=== PATIENT | female | born 1965 | race American Indian/Alaskan Native ===

== ENCOUNTER 2016-12-25 04:58 | Emergency (ER) | payer SELFPAY ==
[2016-12-25] MEDS ORDERED: TYLENOL ONE (05:35)
[2016-12-25] MEDS ORDERED: TYLENOL PO ONE (05:43)
[2016-12-25 06:18] LABS: Basophils % (Auto) 0.7 % (0.0-1.8); Eosinophils % (Auto) 1.7 % (0.0-4.3); Hematocrit 40.3 % (30.3-42.9); Hemoglobin 13.3 gm/dl (10.1-14.3); Mean Corpuscular HGB Conc 33 % (30-34); Mean Corpuscular Hemoglobin 31 pg (28-32); Mean Corpuscular Volume 93 fl (79-97); Platelet Count 301 K/mm3 (140-440); Red Blood Count 4.33 M/mm3 (3.65-5.03); Red Cell Distribution Width 13.2 % (13.2-15.2); White Blood Count 7.6 K/mm3 (4.5-11.0)
[2016-12-25 06:35] LABS: Anion Gap 22 mmol/L; BUN/Creatinine Ratio 16.25; Blood Urea Nitrogen 13 mg/dL (7-17); Calcium 9.4 mg/dL (8.4-10.2); Carbon Dioxide 26 mmol/L (22-30); Chloride 96.7 mmol/L (98-107); Glucose 327 mg/dL (65-100); Potassium 4.2 mmol/L (3.6-5.0); Sodium 140 mmol/L (137-145)
--- NOTE | 2016-12-25 06:54 | Emergency Department Report ---
ED ENT HPI - General Chief complaint: Sore Throat Stated complaint: SORE THROAT/EARACHE/COUGH Time Seen by Provider: 12/25/16 06:53 Source: patient Mode of arrival: Ambulatory Limitations: No Limitations - History of Present Illness Initial comments: Patient here today complaining of sore throat fever and cough for the past 2-3 days. Eyes any shortness of breath, neck pain, photophobia, nausea vomiting. Patient states she's also been out of her prescription medicines for the past 2 weeks. Metformin is the one medication that she has not taken for 2 weeks. Patient denies polyuria polydipsia or blurred vision. She states she has an appointment with her new doctor next week just need some refills on her Norvasc metformin and gabapentin in the meantime. -: Gradual Location: throat Severity scale (0 -10): 4 Quality: burning Worsens with: swallowing Associated Symptoms: fever, cough, pain with swallowing, sore throat - Related Data Previous Rx's Medication Instructions Recorded Last Taken Type Aspirin [Aspirin BABY CHEW TAB] 81 mg PO QDAY #30 tab.chew 03/19/15 Unknown Rx Pantoprazole [Protonix TAB] 40 mg PO QDAY #30 tablet 03/19/15 Unknown Rx amLODIPine [Norvasc] 10 mg PO DAILY #30 tab 03/19/15 Unknown Rx Gabapentin [Neurontin] 300 mg PO BID #60 capsule 05/08/15 Unknown Rx metFORMIN [Glucophage] 500 mg PO BID #60 tablet 05/08/15 Unknown Rx Gabapentin [Gralise] 300 mg PO TID #20 tab.er.24h 12/25/16 Unknown Rx amLODIPine [Norvasc] 5 mg PO DAILY #15 tab 12/25/16 Unknown Rx metFORMIN [Glucophage] 500 mg PO BID #30 tablet 12/25/16 Unknown Rx Allergies Allergy/AdvReac Type Severity Reaction Status Date / Time codeine Allergy Itching Verified 02/05/16 09:46 ED Dental HPI - General Chief complaint: Sore Throat Stated complaint: SORE THROAT/EARACHE/COUGH Time Seen by Provider: 12/25/16 06:53 Source: patient Mode of arrival: Ambulatory Limitations: No Limitations - History of Present Illness MD complaint: sore throat, difficulty swallowing -: Gradual, days(s) Severity: mild Quality: burning Worsens with: swallowing - Related Data Previous Rx's Medication Instructions Recorded Last Taken Type Aspirin [Aspirin BABY CHEW TAB] 81 mg PO QDAY #30 tab.chew 03/19/15 Unknown Rx Pantoprazole [Protonix TAB] 40 mg PO QDAY #30 tablet 03/19/15 Unknown Rx amLODIPine [Norvasc] 10 mg PO DAILY #30 tab 03/19/15 Unknown Rx Gabapentin [Neurontin] 300 mg PO BID #60 capsule 05/08/15 Unknown Rx metFORMIN [Glucophage] 500 mg PO BID #60 tablet 05/08/15 Unknown Rx Gabapentin [Gralise] 300 mg PO TID #20 tab.er.24h 12/25/16 Unknown Rx amLODIPine [Norvasc] 5 mg PO DAILY #15 tab 12/25/16 Unknown Rx metFORMIN [Glucophage] 500 mg PO BID #30 tablet 12/25/16 Unknown Rx Allergies Allergy/AdvReac Type Severity Reaction Status Date / Time codeine Allergy Itching Verified 02/05/16 09:46 ED Review of Systems ROS: Stated complaint: SORE THROAT/EARACHE/COUGH Other details as noted in HPI Constitutional: denies: chills, fever Eyes: denies: eye pain, eye discharge, vision change ENT: throat pain. denies: ear pain Respiratory: cough. denies: shortness of breath, SOB with exertion, SOB at rest , stridor, wheezing Cardiovascular: denies: chest pain, palpitations Endocrine: no symptoms reported. denies: excessive sweating Gastrointestinal: denies: abdominal pain, nausea, diarrhea Genitourinary: denies: urgency, dysuria, discharge Musculoskeletal: denies: back pain, joint swelling, arthralgia Skin: denies: rash, lesions, pruritus Neurological: denies: headache, weakness, paresthesias Psychiatric: denies: anxiety, depression Hematological/Lymphatic: denies: easy bleeding, easy bruising ED Past Medical Hx - Past Medical History Previous Medical History?: Yes Hx Hypertension: Yes (prescribed norvasc but non-compliant ) Hx CVA: No Hx Congestive Heart Failure: No Hx Diabetes: Yes (takes metformin ) Hx Deep Vein Thrombosis: No Hx of Cancer: No Hx Arthritis: No Hx Asthma: No Hx COPD: No Additional medical history: neuropathy- takes gabapentin. pancreatitis - Surgical History Hx Cholecystectomy: Yes Additional Surgical History: - Social History Smoking Status: Never Smoker Substance Use Type: Alcohol - Medications Home Medications: Home Medications Medication Instructions Recorded Confirmed Last Taken Type Aspirin [Aspirin BABY CHEW TAB] 81 mg PO QDAY #30 tab.chew 03/19/15 12/25/16 Unknown Rx Pantoprazole [Protonix TAB] 40 mg PO QDAY #30 tablet 03/19/15 12/25/16 Unknown Rx amLODIPine [Norvasc] 10 mg PO DAILY #30 tab 03/19/15 12/25/16 Unknown Rx Gabapentin [Neurontin] 300 mg PO BID #60 capsule 05/08/15 12/25/16 Unknown Rx metFORMIN [Glucophage] 500 mg PO BID #60 tablet 05/08/15 12/25/16 Unknown Rx Gabapentin [Gralise] 300 mg PO TID #20 tab.er.24h 12/25/16 Unknown Rx amLODIPine [Norvasc] 5 mg PO DAILY #15 tab 12/25/16 Unknown Rx metFORMIN [Glucophage] 500 mg PO BID #30 tablet 12/25/16 Unknown Rx ED Physical Exam - General Limitations: No Limitations General appearance: alert, in no apparent distress - Head Head exam: Present: atraumatic, normocephalic - Eye Eye exam: Present: normal appearance, PERRL, EOMI - ENT ENT exam: Present: mucous membranes moist - Neck Neck exam: Present: normal inspection, full ROM. Absent: tenderness, meningismus, lymphadenopathy - Respiratory Respiratory exam: Present: normal lung sounds bilaterally. Absent: respiratory distress, wheezes, rales - Cardiovascular Cardiovascular Exam: Present: regular rate, normal rhythm. Absent: systolic murmur, diastolic murmur, rubs, gallop - GI/Abdominal GI/Abdominal exam: Present: soft, normal bowel sounds - Extremities Exam Extremities exam: Present: normal inspection - Back Exam Back exam: Present: normal inspection - Neurological Exam Neurological exam: Present: alert, oriented X3, CN II-XII intact - Psychiatric Psychiatric exam: Present: normal affect, normal mood - Skin Skin exam: Present: warm, dry, intact, normal color. Absent: rash ED Course Vital Signs 12/25/16 12/25/16 12/25/16 05:25 06:56 07:03 Temperature 100.2 F H 98.2 F Pulse Rate 104 H 98 H Respiratory 20 20 20 Rate Blood Pressure 175/90 Blood Pressure 130/76 [Right] O2 Sat by Pulse 94 94 94 Oximetry ED Medical Decision Making - Lab Data Result diagrams: 12/25/16 06:02 12/25/16 06:02 Critical care attestation.: If time is entered above; I have spent that time in minutes in the direct care of this critically ill patient, excluding procedure time. ED Disposition Clinical Impression: URI (upper respiratory infection), Hyperglycemia, Medical non-compliance Disposition: DISCHARGED TO HOME OR SELFCARE Is pt being admited?: No Condition: Stable Instructions: Upper Respiratory Infection (ED), Diabetic Hyperglycemia (ED) Prescriptions: amLODIPine [Norvasc] 5 mg PO DAILY #15 tab Gabapentin [Gralise] 300 mg PO TID #20 tab.er.24h metFORMIN [Glucophage] 500 mg PO BID #30 tablet Referrals: PRIMARY CARE,MD [Primary Care Provider] - 3-5 Days
[2016-12-25 06:57] LABS: Bilirubin,Urine NEG (Negative); Blood,Urine NEG (Negative); Ketones,Urine NEG (Negative); Leukocyte Esterase,Urine LG (Negative); Mucus,Urine FEW /HPF; Nitrite,Urine NEG (Negative); Urobilinogen,Urine < 2.0 mg/dL (<2.0)
[2016-12-25 07:03] VITALS: BP 130/76
[2016-12-25] MEDS ORDERED: NACL 0.9% 500 ML 500 ML IV ONE (07:16)
[2016-12-25] MEDS ORDERED: ROCEPHIN/NS 1 GM/50 ML 1 GM/50 ML BAG IV ONE (07:18)
== END 2016-12-25 08:29 | disposition home or self-care (01) ==
LOC: ED 04:58
DX: J06.9 Acute upper respiratory infection, unspecified (principal); E11.65 Type 2 diabetes mellitus with hyperglycemia; I10 Essential (primary) hypertension
CPT/HCPCS: 36415; 80048; 81001; 82805; 82962; 85025; 87116; 87430; 96365; 96372; 99284; J0696; J7040; J1815

== ENCOUNTER 2017-03-18 18:40 | Emergency (ER) | payer SELFPAY ==
[2017-03-18 19:44] VITALS: BP 144/87
--- NOTE | 2017-03-18 21:42 | XRay Report ---
FINAL REPORT PROCEDURE: XR KNEE 3V LT TECHNIQUE: Left knee radiographs, AP, lateral and sunrise views. CPT 55935 HISTORY: knee pain/injury COMPARISON: No prior studies are available for comparison. FINDINGS: Fracture (s) and/or Dislocation(s): None . Alignment: Normal . Joint space(s): There is moderate degenerative arthrosis of the medial knee compartment.. Soft tissues: Normal . Bone mineralization: Normal . Foreign bodies: None . IMPRESSION: There is no acute bony abnormality. There is degenerative arthrosis of the medial knee compartment. There is no joint effusion..
--- NOTE | 2017-03-18 23:35 | Emergency Department Report ---
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, and osteoarthitis bilat knees, who fell today getting out of her jeep , pt advises I twisted my knee getting out of the jeep pain and aching since, pt endorse partial weight bearing only since time of incident, pain is 6/10 sharp , pain is exacerbated by weight bearing , Complaint: knee injury Onset/Timin -: hour(s) Injury: Knee: Left Type of Injury: blunt, other (twisting fall ) Place: work Severity: moderate Severity scale (0 -10): 6 Improves With: nothing Worsens With: weight bearing, movement, palpation Context: fall, direct blow Associated Symptoms: tingling, able to partially bear weight. denies: swelling , numbness - Related Data Previous Rx's Medication Instructions Recorded Last Taken Type Aspirin [Aspirin BABY CHEW TAB] 81 mg PO QDAY #30 tab.chew 03/19/15 Unknown Rx Pantoprazole [Protonix TAB] 40 mg PO QDAY #30 tablet 03/19/15 Unknown Rx amLODIPine [Norvasc] 10 mg PO DAILY #30 tab 03/19/15 Unknown Rx Gabapentin [Neurontin] 300 mg PO BID #60 capsule 05/08/15 Unknown Rx metFORMIN [Glucophage] 500 mg PO BID #60 tablet 05/08/15 Unknown Rx Gabapentin [Gralise] 300 mg PO TID #20 tab.er.24h 12/25/16 Unknown Rx amLODIPine [Norvasc] 5 mg PO DAILY #15 tab 12/25/16 Unknown Rx metFORMIN [Glucophage] 500 mg PO BID #30 tablet 12/25/16 Unknown Rx Cyclobenzaprine [Flexeril] 10 mg PO TID PRN #30 tablet 03/19/17 Unknown Rx Naproxen [Naprosyn TAB] 500 mg PO BID PRN #60 tablet 03/19/17 Unknown Rx Allergies Allergy/AdvReac Type Severity Reaction Status Date / Time codeine Allergy Itching Verified 02/05/16 09:46 ED Review of Systems ROS: Stated complaint: LEFT KNEE INJURY Other details as noted in HPI Constitutional: denies: chills, fever Eyes: denies: eye pain, eye discharge, vision change ENT: denies: ear pain, throat pain Respiratory: denies: cough, shortness of breath, wheezing Cardiovascular: denies: chest pain, palpitations Endocrine: no symptoms reported Gastrointestinal: denies: abdominal pain, nausea, diarrhea Genitourinary: denies: urgency, dysuria, discharge Musculoskeletal: arthralgia, myalgia. denies: back pain, joint swelling Skin: denies: rash, lesions Neurological: denies: headache, weakness, paresthesias Psychiatric: denies: anxiety, depression Hematological/Lymphatic: denies: easy bleeding, easy bruising ED Past Medical Hx - Past Medical History Hx Hypertension: Yes (prescribed norvasc but non-compliant ) Hx CVA: No Hx Congestive Heart Failure: No Hx Diabetes: Yes (takes metformin ) Hx Deep Vein Thrombosis: No Hx Arthritis: No Hx Asthma: No Hx COPD: No Additional medical history: neuropathy- takes gabapentin. pancreatitis - Surgical History Hx Cholecystectomy: Yes Additional Surgical History: - Social History Smoking Status: Current Every Day Smoker Substance Use Type: None - Medications Home Medications: Home Medications Medication Instructions Recorded Confirmed Last Taken Type Aspirin [Aspirin BABY CHEW TAB] 81 mg PO QDAY #30 tab.chew 03/19/15 12/25/16 Unknown Rx Pantoprazole [Protonix TAB] 40 mg PO QDAY #30 tablet 03/19/15 12/25/16 Unknown Rx amLODIPine [Norvasc] 10 mg PO DAILY #30 tab 03/19/15 12/25/16 Unknown Rx Gabapentin [Neurontin] 300 mg PO BID #60 capsule 05/08/15 12/25/16 Unknown Rx metFORMIN [Glucophage] 500 mg PO BID #60 tablet 05/08/15 12/25/16 Unknown Rx Gabapentin [Gralise] 300 mg PO TID #20 tab.er.24h 12/25/16 Unknown Rx amLODIPine [Norvasc] 5 mg PO DAILY #15 tab 12/25/16 Unknown Rx metFORMIN [Glucophage] 500 mg PO BID #30 tablet 12/25/16 Unknown Rx Cyclobenzaprine [Flexeril] 10 mg PO TID PRN #30 tablet 03/19/17 Unknown Rx Naproxen [Naprosyn TAB] 500 mg PO BID PRN #60 tablet 03/19/17 Unknown Rx ED Physical Exam - General Limitations: No Limitations General appearance: alert, in no apparent distress - Head Head exam: Present: atraumatic, normocephalic - Eye Eye exam: Present: normal appearance - ENT ENT exam: Present: mucous membranes moist - Neck Neck exam: Present: normal inspection - Respiratory Respiratory exam: Present: normal lung sounds bilaterally. Absent: respiratory distress - Cardiovascular Cardiovascular Exam: Present: regular rate, normal rhythm. Absent: systolic murmur, diastolic murmur, rubs, gallop - GI/Abdominal GI/Abdominal exam: Present: soft, normal bowel sounds - Rectal Rectal exam: Present: deferred - Extremities Exam Extremities exam: Present: tenderness, normal capillary refill. Absent: pedal edema, joint swelling, calf tenderness - Expanded Lower Extremity Exam Left Knee exam: Present: tenderness, pain w/ pronation/supination, full knee extension. Absent: ecchymosis, deformity, crepidus, dislocation, erythema, effusion, posterior draw sign, pain/laxity with valgus, pain/laxity with varus Lower Leg exam: Present: normal inspection, full ROM Ankle exam: Present: normal inspection, full ROM Foot/Toe exam: Present: normal inspection, full ROM Neuro vascular tendon exam: Present: no vascular compromise. Absent: pulse deficit, abnormal cap refill, motor deficit, sensory deficit, tendon deficit, extremity cold to touch, pallor, abnormal 2-point discrimination, decreased fine /light touch, foot drop, peroneal nerve deficit, significant pain with passive ROM of distal joint Gait: Positive: unable to bear weight - Back Exam Back exam: Present: normal inspection, full ROM. Absent: tenderness, CVA tenderness (R), CVA tenderness (L), muscle spasm, paraspinal tenderness, vertebral tenderness, rash noted - Neurological Exam Neurological exam: Present: alert, oriented X3 - Psychiatric Psychiatric exam: Present: normal affect, normal mood - Skin Skin exam: Present: warm, dry, intact, normal color. 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 osteoarthitis bilat knees, who fell today getting out of her jeep , pt advises I twisted my knee getting out of the jeep pain and aching since, pt endorse partial weight bearing only since time of incident, pain is 6/10 sharp , pain is exacerbated by weight bearing , exam: pt is non weight bearing pt with nad osbese left knee : no deformity no ecchymosis no erythema no crepitus no drawer pain with pronation supination bilat, pt has full extension there is no erythema no swelling no effusion no bursitis , xray: negative for fracture, no soft tissue deformity , plan: Cristian, crutches follow with orthopedics Dr. Varma as previous , nsaids, and muscle relaxants , knee exercises , pt will follow up with usual orthopedic doctor to continue steroid injections as scheduled. pt verbalized understanding and agreement with discharge plan. Critical care attestation.: If time is entered above; I have spent that time in minutes in the direct care of this critically ill patient, excluding procedure time. ED Disposition Clinical Impression: Strain of left knee Qualifiers: Encounter type: initial encounter Qualified Code(s): S86.912A - Strain of unspecified muscle(s) and tendon(s) at lower leg level, left leg, initial encounter Fall Qualifiers: Encounter type: initial encounter Qualified Code(s): W19.XXXA - Unspecified fall, initial encounter Disposition: TO HOME OR SELFCARE Is pt being admited?: No Does the pt Need Aspirin: No Condition: Good Instructions: Knee Pain (ED) Additional Instructions: crutches as directed Prescriptions: Cyclobenzaprine [Flexeril] 10 mg PO TID PRN #30 tablet PRN Reason: Muscle Spasm Naproxen [Naprosyn TAB] 500 mg PO BID PRN #60 tablet PRN Reason: pain Referrals: PRIMARY CARE, [Primary Care Provider] - 3-5 Days REBECCA VARMA MD [Staff Physician] - 3-5 Days Time of Disposition: 00:46
== END 2017-03-19 01:01 | disposition home or self-care (01) ==
LOC: ED 18:40
DX: S86.912A Strain of unspecified muscle(s) and tendon(s) at lower leg level, left leg, initial encounter (principal); F17.200 Nicotine dependence, unspecified, uncomplicated; I10 Essential (primary) hypertension; W18.30XA Fall on same level, unspecified, initial encounter; Y93.9 Activity, unspecified; Y92.9 Unspecified place or not applicable; Y99.9 Unspecified external cause status

== ENCOUNTER 2017-05-06 11:55 | Emergency (ER) | payer SELFPAY ==
[2017-05-06] MEDS ORDERED: TYLENOL PO ONE (12:15)
[2017-05-06 12:19] VITALS: BP 111/90
[2017-05-06 13:50] LABS: Basophils % (Auto) 0.3 % (0.0-1.8); Hematocrit 39.4 % (30.3-42.9); Hemoglobin 12.8 gm/dl (10.1-14.3); Mean Corpuscular HGB Conc 33 % (30-34); Mean Corpuscular Hemoglobin 30 pg (28-32); Mean Corpuscular Volume 93 fl (79-97); Platelet Count 292 K/mm3 (140-440); Red Blood Count 4.23 M/mm3 (3.65-5.03); Red Cell Distribution Width 12.9 % (13.2-15.2); White Blood Count 18.6 K/mm3 (4.5-11.0)
[2017-05-06 14:02] LABS: Anion Gap 22 mmol/L; BUN/Creatinine Ratio 15; Blood Urea Nitrogen 12 mg/dL (7-17); Calcium 9.2 mg/dL (8.4-10.2); Carbon Dioxide 23 mmol/L (22-30); Chloride 96.4 mmol/L (98-107); Glucose 214 mg/dL (65-100); Potassium 3.6 mmol/L (3.6-5.0); Sodium 138 mmol/L (137-145)
[2017-05-06 22:05] LABS: Bacteria,Urine 3+ /HPF (Negative); Bilirubin,Urine NEG (Negative); Blood,Urine MOD (Negative); Ketones,Urine NEG (Negative); Leukocyte Esterase,Urine MOD (Negative); Mucus,Urine 3+ /HPF; Nitrite,Urine NEG (Negative); Urobilinogen,Urine < 2.0 mg/dL (<2.0)
[2017-05-06 22:06] LABS: WBC,Urine > 182.0 /HPF (0.0-6.0)
--- NOTE | 2017-05-07 17:44 | Emergency Department Report ---
Blank Doc - Documentation Documentation: Patient's blood cultures that were drawn 05/06/2017 for gram-negative rods in 1 of 2 bottles. I contacted the patient at 17:38 and spoke with the patient and the patient's daughter. I made her aware of her lab results including positive blood culture. The patient states she went to [facility] yesterday and was discharged this morning on a course of antibiotics. The patient states she is feeling better. Patient advised to check her heart rate and if is greater than 100 bpm or she begins to feel worse she should return immediately to the hospital for further management. Patient verbalized understanding
== END 2017-05-06 12:11 | disposition left against medical advice (07) ==
LOC: ED 11:55
DX: R06.02 Shortness of breath (principal); R10.30 Lower abdominal pain, unspecified
CPT/HCPCS: 36415; 80048; 81001; 84484; 84703; 85025; 87040; 87076; 87186; 99283

== ENCOUNTER 2017-05-08 04:47 | Inpatient (IN) | payer SELFPAY ==
--- NOTE | 2017-05-08 08:07 | XRay Report ---
FINAL REPORT EXAM: XR CHEST ROUTINE 2V HISTORY: Shortness of breath TECHNIQUE: PA and lateral chest radiographs PRIORS: None. FINDINGS: No mediastinal shift. Cardiac silhouette is not enlarged. Symmetric hypoaeration of the lungs. There is a 12 millimeter nodule projecting over the right upper lung and right clavicle. No pneumothorax, effusion, or focal pulmonary opacity. No acute skeletal finding. IMPRESSION: No acute pulmonary finding. A right upper lung 12 millimeter nodule projecting over the mid right clavicle warrants further evaluation with CT if this finding has not been previously documented.
[2017-05-08 08:17] LABS: Hematocrit 33.9 % (30.3-42.9); Mean Corpuscular HGB Conc 32 % (30-34); Mean Corpuscular Hemoglobin 30 pg (28-32); Mean Corpuscular Volume 94 fl (79-97); Platelet Count 274 K/mm3 (140-440); Red Blood Count 3.63 M/mm3 (3.65-5.03); Red Cell Distribution Width 13.2 % (13.2-15.2)
[2017-05-08 08:29] LABS: Anion Gap 18 mmol/L; BUN/Creatinine Ratio 21; Blood Urea Nitrogen 25 mg/dL (7-17); Carbon Dioxide 24 mmol/L (22-30); Chloride 94.3 mmol/L (98-107); Glucose 332 mg/dL (65-100); Potassium 4.2 mmol/L (3.6-5.0); Sodium 132 mmol/L (137-145)
[2017-05-08] MEDS ORDERED: NACL 0.9% 500 ML 500 ML IV ONE (08:47)
[2017-05-08 08:52] LABS: White Blood Count 21.4 K/mm3 (4.5-11.0)
[2017-05-08] MEDS ORDERED: NACL 0.9% 1000 ML 1,000 ML ONE (08:59)
[2017-05-08 09:20] LABS: Bacteria,Urine 1+ /HPF (Negative); Bilirubin,Urine NEG (Negative); Blood,Urine LG (Negative); Ketones,Urine NEG (Negative); Leukocyte Esterase,Urine MOD (Negative); Mucus,Urine FEW /HPF; Nitrite,Urine NEG (Negative)
[2017-05-08] MEDS ORDERED: LEVAQUIN 750MG/150ML 750 MG/150 ML BAG IV ONE (09:21)
[2017-05-08] MEDS ORDERED: MAXIPIME/NS 2 GM/100 ML 2 GM/100 ML BAG IV ONE (09:21)
[2017-05-08] MEDS ORDERED: NACL ONE (09:30)
[2017-05-08 09:45] LABS: Hematocrit 33.4 % (30.3-42.9); Mean Corpuscular HGB Conc 33 % (30-34); Mean Corpuscular Hemoglobin 31 pg (28-32); Mean Corpuscular Volume 95 fl (79-97); Platelet Count 249 K/mm3 (140-440); Red Blood Count 3.53 M/mm3 (3.65-5.03); Red Cell Distribution Width 13.3 % (13.2-15.2)
[2017-05-08 09:49] LABS: White Blood Count 20.6 K/mm3 (4.5-11.0)
[2017-05-08 09:54] LABS: Anisocytosis 1+; Basophils % (Manual) 0 % (0.0-1.8); Blastocytes % (Manual) 0 %; Diff Status Complete; Eosinophils % (Manual) 0 % (0.0-4.3); Platelet Estimate Consistent w Auto; Total Cells Counted Percent 5.5
[2017-05-08 09:55] LABS: INR 1.5 (0.87-1.13)
[2017-05-08 10:04] LABS: Albumin 2.8 g/dL (3.9-5); Albumin/Globulin Ratio 0.7 %; Bilirubin,Total 0.6 mg/dL (0.1-1.2); Calcium 8.6 mg/dL (8.4-10.2); Chloride 94.9 mmol/L (98-107); Total Protein 6.9 g/dL (6.3-8.2)
--- NOTE | 2017-05-08 10:06 | Emergency Department Report ---
ED Shortness of Breath HPI - General Chief Complaint: Dyspnea/Respdistress Stated Complaint: CHEST PAIN,BODY ACHE, Time Seen by Provider: 05/08/17 09:06 Source: patient Mode of arrival: Ambulatory Limitations: Physical Limitation - History of Present Illness Initial Comments: A 52-year-old female with past medical history of morbid obesity, hypertension, diabetes mellitus. Presents to ER with complaints of shortness of breath 1 week progressively getting worse. She also complains of urinary frequency and dysuria 2 days. Patient also complains of unsteadiness in her gait 4 days. She was unable to get up. from her bed this morning. Pt was feeling dizz and abut to pass out. Pt usually ambulates without support. Pt has being having SOB with some vague chest discomfort, it is progressively getting worse. Pt recalls having productive cough, white to dark coloured sputum. Pt als states having rigors, chills and headaches Pt is a chronic smoker, I counselled her about smoking cessation Patient was here yesterday but didn't wait long enough to be seen, she went home. She was called to come back to be re-evaluated because of her abnormal labs. MD Complaint: shortness of breath, cough (productive of clear whitish to dark coloured sputum), chest pain -: Gradual, week(s) (1, progressively getting worse) Severity: moderate Pain Scale: 5 Quality: aching Consistency: intermittent Improves With: nothing Worsens With: nothing Known History Of: diabetes Associated Symptoms: chest pain, fever, cough, sputum production, nausea/ vomiting, other (dizziness, ataxic gait) Treatments Prior to Arrival: none - Related Data Previous Rx's Medication Instructions Recorded Last Taken Type Aspirin [Aspirin BABY CHEW TAB] 81 mg PO QDAY #30 tab.chew 03/19/15 Unknown Rx Pantoprazole [Protonix TAB] 40 mg PO QDAY #30 tablet 03/19/15 Unknown Rx amLODIPine [Norvasc] 10 mg PO DAILY #30 tab 03/19/15 Unknown Rx Gabapentin [Neurontin] 300 mg PO BID #60 capsule 05/08/15 Unknown Rx metFORMIN [Glucophage] 500 mg PO BID #60 tablet 05/08/15 Unknown Rx Gabapentin [Gralise] 300 mg PO TID #20 tab.er.24h 12/25/16 Unknown Rx amLODIPine [Norvasc] 5 mg PO DAILY #15 tab 12/25/16 Unknown Rx metFORMIN [Glucophage] 500 mg PO BID #30 tablet 12/25/16 Unknown Rx Cyclobenzaprine [Flexeril] 10 mg PO TID PRN #30 tablet 03/19/17 Unknown Rx Naproxen [Naprosyn TAB] 500 mg PO BID PRN #60 tablet 03/19/17 Unknown Rx Allergies Allergy/AdvReac Type Severity Reaction Status Date / Time codeine Allergy Itching Verified 02/05/16 09:46 ED Review of Systems ROS: Stated complaint: CHEST PAIN,BODY ACHE, Other details as noted in HPI Comment: All other systems reviewed and negative Constitutional: see HPI, chills, fever, malaise, weakness. denies: diaphoresis Eyes: denies: eye pain, eye discharge, vision change ENT: denies: throat pain, dental pain, hearing loss, epistaxis Respiratory: see HPI, cough (productive of whitish to dark coloured sputum), shortness of breath Cardiovascular: chest pain, dyspnea on exertion Endocrine: no symptoms reported Gastrointestinal: abdominal pain (suprapubic region), nausea, vomiting. denies : diarrhea, constipation, hematemesis Genitourinary: urgency, frequency Musculoskeletal: back pain. denies: joint swelling, arthralgia, myalgia Skin: denies: lesions, change in color, change in hair/nails, pruritus Neurological: weakness, abnormal gait, vertigo. denies: numbness, paresthesias ED Past Medical Hx - Past Medical History Previous Medical History?: Yes Hx Hypertension: Yes (prescribed norvasc but non-compliant ) Hx CVA: No Hx Congestive Heart Failure: No Hx Diabetes: Yes (takes metformin ) Hx Deep Vein Thrombosis: No Hx Arthritis: No Hx Asthma: No Hx COPD: No Additional medical history: neuropathy- takes gabapentin. pancreatitis - Surgical History Hx Cholecystectomy: Yes Additional Surgical History: - Social History Smoking Status: Never Smoker - Medications Home Medications: Home Medications Medication Instructions Recorded Confirmed Last Taken Type Aspirin [Aspirin BABY CHEW TAB] 81 mg PO QDAY #30 tab.chew 03/19/15 12/25/16 Unknown Rx Pantoprazole [Protonix TAB] 40 mg PO QDAY #30 tablet 03/19/15 12/25/16 Unknown Rx amLODIPine [Norvasc] 10 mg PO DAILY #30 tab 03/19/15 12/25/16 Unknown Rx Gabapentin [Neurontin] 300 mg PO BID #60 capsule 05/08/15 12/25/16 Unknown Rx metFORMIN [Glucophage] 500 mg PO BID #60 tablet 05/08/15 12/25/16 Unknown Rx Gabapentin [Gralise] 300 mg PO TID #20 tab.er.24h 12/25/16 Unknown Rx amLODIPine [Norvasc] 5 mg PO DAILY #15 tab 12/25/16 Unknown Rx metFORMIN [Glucophage] 500 mg PO BID #30 tablet 12/25/16 Unknown Rx Cyclobenzaprine [Flexeril] 10 mg PO TID PRN #30 tablet 03/19/17 Unknown Rx Naproxen [Naprosyn TAB] 500 mg PO BID PRN #60 tablet 03/19/17 Unknown Rx ED Physical Exam - General Limitations: Physical Limitation General appearance: alert, in distress (moderate distress), obese - Head Head exam: Present: atraumatic, normocephalic - Eye Eye exam: Present: normal appearance, PERRL, EOMI. Absent: nystagmus - ENT ENT exam: Present: normal exam, mucous membranes moist, TM's normal bilaterally - Neck Neck exam: Present: normal inspection, full ROM. Absent: tenderness, meningismus, lymphadenopathy - Respiratory Respiratory exam: Present: rhonchi, decreased breath sounds, prolonged expiratory. Absent: wheezes, rales, chest wall tenderness, accessory muscle use - Cardiovascular Cardiovascular Exam: Present: tachycardia, normal heart sounds - GI/Abdominal GI/Abdominal exam: Present: soft, distended (obese abdomen), normal bowel sounds. Absent: tenderness, guarding, rebound, hyperactive bowel sounds, hypoactive bowel sounds, organomegaly, mass, bruit, pulsatile mass - Rectal Rectal exam: Present: deferred - Extremities Exam Extremities exam: Present: normal inspection, full ROM, normal capillary refill. Absent: pedal edema, joint swelling - Back Exam Back exam: Present: normal inspection, full ROM, CVA tenderness (R). Absent: tenderness, CVA tenderness (L), muscle spasm, paraspinal tenderness - Neurological Exam Neurological exam: Present: alert, oriented X3, CN II-XII intact, abnormal gait (truncal ataxia), motor sensory deficit, reflexes normal ED Course Vital Signs 05/08/17 05/08/17 05/08/17 06:51 08:44 08:45 Temperature 99.8 F H Pulse Rate 117 H 103 H 103 H Pulse Rate [ Anterior Bilateral Throughout] Respiratory 18 26 H 27 H Rate Respiratory Rate [Anterior Bilateral Throughout] Blood Pressure 136/67 102/45 Blood Pressure [Left] O2 Sat by Pulse 91 99 100 Oximetry 05/08/17 05/08/17 05/08/17 08:46 09:00 09:16 Temperature 101.3 F H Pulse Rate 104 H 102 H 103 H Pulse Rate [ Anterior Bilateral Throughout] Respiratory 21 21 18 Rate Respiratory Rate [Anterior Bilateral Throughout] Blood Pressure 113/53 113/53 Blood Pressure 94/39 [Left] O2 Sat by Pulse 98 98 99 Oximetry 05/08/17 05/08/17 05/08/17 09:30 09:46 10:06 Temperature Pulse Rate 105 H 107 H 106 H Pulse Rate [ Anterior Bilateral Throughout] Respiratory 26 H 21 22 Rate Respiratory Rate [Anterior Bilateral Throughout] Blood Pressure 113/53 113/53 113/53 Blood Pressure [Left] O2 Sat by Pulse 99 99 Oximetry 05/08/17 05/08/17 05/08/17 10:16 10:23 13:15 Temperature 99.4 F Pulse Rate 105 H Pulse Rate [ 106 H Anterior Bilateral Throughout] Respiratory 17 Rate Respiratory 22 Rate [Anterior Bilateral Throughout] Blood Pressure 113/53 Blood Pressure [Left] O2 Sat by Pulse 98 Oximetry 05/08/17 05/08/17 13:20 13:25 Temperature Pulse Rate Pulse Rate [ 110 H Anterior Bilateral Throughout] Respiratory Rate Respiratory 20 Rate [Anterior Bilateral Throughout] Blood Pressure Blood Pressure [Left] O2 Sat by Pulse 98 Oximetry - Consultations Consultation #1: 05/08/17 12:43 Case was discussed with [facility], he accepts pt's admission ED Medical Decision Making - Lab Data Result diagrams: 05/08/17 09:19 05/08/17 09:19 - EKG Data -: EKG Interpreted by Me - EKG Data 05/08/17 10:22 Sinus tachycardia rate of 108 beats per minutes normal axis, normal intervals, T -wave inversion in aVL, nonspecific ST changes in V1 and V2 low voltages in the precordial leads. - Radiology Data Radiology results: report reviewed, image reviewed - Medical Decision Making With a white cell count with a left shift, elevated white cell count and the UA ,, SOB with pH of 7.32, PCO2 of 49, ataxia of physical examination , CT finding of subtle hypodense area with the deep parietal white matter and basal ganglia These finding suggest UTI, CVA with COPD exacebation Critical Care Time: No Critical care attestation.: If time is entered above; I have spent that time in minutes in the direct care of this critically ill patient, excluding procedure time. ED Disposition Clinical Impression: UTI (urinary tract infection), Cerebrovascular accident (CVA), COPD with acute exacerbation Disposition: OP ADMIT IP TO THIS HOSP Is pt being admited?: Yes Does the pt Need Aspirin: Yes Condition: Serious Instructions: Chronic Obstructive Pulmonary Disease (ED) Referrals: PRIMARY CARE, [Primary Care Provider] - 3-5 Days Time of Disposition: 12:55
--- NOTE | 2017-05-08 10:26 | Cat Scan Report ---
CT HEAD WITHOUT CONTRAST: 05/08/17 04:47:00 CLINICAL: Dizziness and ataxia. TECHNIQUE: 2.5-mm noncontrast scans. COMPARISON:None FINDINGS: The ventricles and sulci are normal for age.Subtle asymmetric hypodensity in right parietal lobe deep white matter and basal ganglia. No other abnormal density. The cerebellum is normal. No mass or mass effect. No hemorrhage, edema or extra-axial collection. The sinuses are clear. Normal orbits and soft tissues. The calvarium and skull base are intact. IMPRESSION: Subtle hypodensity in the deep right parietal lobe white matter and basal ganglia is suspicious for a nonhemorrhagic infarct. No hemorrhage.
--- NOTE | 2017-05-08 10:30 | Cat Scan Report ---
CT CHEST WITH CONTRAST: 05/08/17 04:47:00 CLINICAL: Abnormal chest x-ray suggesting a right upper lobe lung nodule. Comparison: A same day chest x-ray TECHNIQUE: Volumetric acquisition and 1.25 mm scan reconstructions after the uneventful intravenous injection of 100cc Omnipaque 300. Consent was obtained prior to the administration of contrast. FINDINGS: The lungs are normally expanded and clear. No pulmonary nodule or mass. The opacity on the chest x-ray is likely explained by an object outside of the body. Normal heart and pulmonary vessels. Normal aorta and mediastinum. No hilar or mediastinal lymphadenopathy. No pleural effusion. Normal thyroid, trachea and esophagus. No axillary or supraclavicular lymphadenopathy. The upper abdomen is remarkable for a hypodense liver consistent with hepatic steatosis. The bones and soft tissues are normal. IMPRESSION: 1. Normal chest with no lung nodule or mass. 2. Hepatic steatosis.
[2017-05-08 10:32] LABS: ABG HCO3 25.3 mmol/L (20.0-26.0); ABG Oxygen Saturation 95.3 % (95.0-99.0); ABG PCO2 49.6 mm Hg; ABG PH 7.326 pH Units (7.350-7.450); ABG PO2 75.3 mm Hg (80.0-90.0)
[2017-05-08 10:33] LABS: Basophils % (Manual) 0 % (0.0-1.8); Blastocytes % (Manual) 0 %
[2017-05-08 10:34] LABS: Anisocytosis 1+; Diff Status Complete; Platelet Estimate Consistent w Auto
[2017-05-08] MEDS ORDERED: NACL 0.9% 1000 ML 1,000 ML IV ONE (11:52)
[2017-05-08] MEDS ORDERED: ASPIRIN PO ONE (11:52)
[2017-05-08] MEDS ORDERED: PROVENTIL IH ONE (11:56)
[2017-05-08] MEDS ORDERED: MILK OF MAGNESIA PO PRN (12:37)
[2017-05-08] MEDS ORDERED: NACL 0.9% 1000 ML IV ONE (12:37)
[2017-05-08] MEDS ORDERED: DULCOLAX PR PRN (12:37)
[2017-05-08] MEDS ORDERED: PROVENTIL IH PRN (12:37)
[2017-05-08] MEDS ORDERED: ZOFRAN IV PRN (12:37)
[2017-05-08] MEDS ORDERED: NAPROSYN PO PRN (12:42)
[2017-05-08] MEDS ORDERED: FLEXERIL PO PRN (12:42)
[2017-05-08] MEDS ORDERED: D50W (25GM) Vial IV ONE (13:00)
--- NOTE | 2017-05-08 13:32 | History and Physical Report ---
History of Present Illness Chief complaint: It stinson when i urinate, and i cant control it History of present illness: 52 YO Female with MO, HTN, DM-complicated by Neuropathy, Pancreatitis, and Medication Noncompliance presents to ED for evaluation. Pt states that she has experienced fever, chills, weakness, and malaise for the past 3 days. Pt also complains of difficulty breathing over the past 1 day with worsening symptoms over the past 4 hours, as well as urinary frequency and dysuria. Pt also scknowledges loss of bladder continence over the past 2 days. Pt states that she has gotten progressively more weak over the past day. Pt was seen in the ED on 05/07/17 but left prior to physician evaluation. Pt was called back due to laboratory abnormalities. Pt seen and evaluated in ED and found to have UTI complicated by sepsis as well as uncontrolled diabetes. Pt initiated on sepsis protocol. Past History Past Medical History: diabetes, hypertension, other (Morbid Obesity) Past Surgical History: cholecystectomy, Social history: . denies: smoking, alcohol abuse, prescription drug abuse Family history: diabetes, hypertension Medications and Allergies Allergies Allergy/AdvReac Type Severity Reaction Status Date / Time codeine Allergy Itching Verified 02/05/16 09:46 Home Medications Medication Instructions Recorded Confirmed Last Taken Type Aspirin [Aspirin BABY CHEW TAB] 81 mg PO QDAY #30 tab.chew 03/19/15 12/25/16 Unknown Rx Pantoprazole [Protonix TAB] 40 mg PO QDAY #30 tablet 03/19/15 12/25/16 Unknown Rx amLODIPine [Norvasc] 10 mg PO DAILY #30 tab 03/19/15 12/25/16 Unknown Rx Gabapentin [Neurontin] 300 mg PO BID #60 capsule 05/08/15 12/25/16 Unknown Rx metFORMIN [Glucophage] 500 mg PO BID #60 tablet 05/08/15 12/25/16 Unknown Rx Gabapentin [Gralise] 300 mg PO TID #20 tab.er.24h 12/25/16 Unknown Rx amLODIPine [Norvasc] 5 mg PO DAILY #15 tab 12/25/16 Unknown Rx metFORMIN [Glucophage] 500 mg PO BID #30 tablet 12/25/16 Unknown Rx Cyclobenzaprine [Flexeril] 10 mg PO TID PRN #30 tablet 03/19/17 Unknown Rx Naproxen [Naprosyn TAB] 500 mg PO BID PRN #60 tablet 03/19/17 Unknown Rx Active Meds: Active Medications Acetaminophen (Tylenol) 650 mg PO Q4H PRN PRN Reason: Pain MILD(1-3)/Fever >100.5/AHN Albuterol (Proventil) 2.5 mg IH Q4HRT PRN PRN Reason: Shortness Of Breath Amlodipine Besylate (Norvasc) 10 mg PO DAILY [facility] Aspirin (Baby Aspirin) 81 mg PO QDAY ROLY Bisacodyl (Dulcolax) 10 mg [place] QDAY PRN PRN Reason: Constipation unrelieved by MOM Cyclobenzaprine HCl (Flexeril) 10 mg PO TID PRN PRN Reason: Muscle Spasm Dextrose (D50w (25gm) Vial) 50 gm IV PRN PRN PRN Reason: HYPOGLYCEMIA Gabapentin (Neurontin) 300 mg PO Q12H ROLY Gabapentin (Neurontin) 300 mg PO Q8HR [facility] Sodium Chloride (Nacl 0.9% 1000 Ml) 1,000 mls @ 100 mls/hr IV ONCE ONE Stop: 05/08/17 21:51 Last Admin: 05/08/17 12:52 Dose: 100 mls/hr Piperacillin Sod/Tazobactam Sod (Zosyn/Ns 4.5gm/100ml) 4.5 gm in 100 mls @ 200 mls/hr IV Q8HR ROLY PRN Reason: Protocol Insulin Human Regular (Novolin R) 0 units SUB-Q ACHS ROLY PRN Reason: Protocol Magnesium Hydroxide (Milk Of Magnesia) 30 ml PO Q4H PRN PRN Reason: Constipation Naproxen (Naprosyn) 500 mg PO BID PRN PRN Reason: pain Ondansetron HCl (Zofran) 4 mg IV Q8H PRN PRN Reason: N/V unrelieved by Reglan Pantoprazole Sodium (Protonix) 40 mg PO QDAY [facility] Review of Systems Constitutional: fever, chills, weakness, malaise, no weight loss, no weight gain Ears, nose, mouth and throat: no ear pain, no ear discharge, no tinnitis, no decreased hearing, no nose pain, no nasal congestion Breasts: no change in shape, no swelling, no mass Cardiovascular: no chest pain, no orthopnea, no palpitations, no syncope, no lightheadedness Respiratory: no cough, no excessive sputum, no hemoptysis Gastrointestinal: no nausea, no vomiting, no diarrhea Genitourinary Female: flank pain, dysuria, urinary frequency, urgency, no pelvic pain, no menorrhagia Rectal: no pain, no incontinence, no bleeding Musculoskeletal: no neck stiffness, no neck pain, no shooting arm pain, no arm numbness/tingling, no shooting leg pain, no leg numbness/tingling Integumentary: no rash, no pruritis, no redness, no sores, no wounds Neurological: no head injury, no transient paralysis, no paralysis, no weakness , no parathesias, no numbness, no tingling, no seizures Psychiatric: no memory loss, no change in sleep habits, no sleep disturbances, no insomnia, no hypersomnia, no change in appetite, no change in libido, no disorientation, no hallucinations Endocrine: no cold intolerance, no heat intolerance, no polyphagia, no excessive thirst, no polydipsia, no polyuria, no nocturia Hematologic/Lymphatic: no easy bruising, no easy bleeding Allergic/Immunologic: no urticaria, no allergic rhinitis, no wheezing Exam - Constitutional Vitals: Temp Pulse Resp BP Pulse Ox 99.4 F 110 H 20 113/53 98 05/08/17 10:23 05/08/17 13:25 05/08/17 13:25 05/08/17 10:16 05/08/17 10:16 General appearance: Present: mild distress - Respiratory Respiratory effort: normal Respiratory: bilateral: CTA - Cardiovascular Heart Sounds: Present: S1 & S2. Absent: rub, click - Extremities Extremities: pulses symmetrical, No edema Extremity abnormal: edema Peripheral Pulses: abnormal (Capillary refill: 3.6 seconds) - Abdominal General gastrointestinal: Present: soft, tender, normal bowel sounds Localized gastrointestinal: tender: suprapubic Female genitourinary: Present: normal - Rectal Rectal Exam: normal rectal tone - Integumentary Integumentary: Present: clear, dry - Musculoskeletal Musculoskeletal: generalized weakness - Psychiatric Psychiatric: appropriate mood/affect, intact judgment & insight - Neurologic Neurologic: CNII-XII intact, moves all extremities Results - Labs CBC & Chem 7: 05/08/17 09:19 05/08/17 09:19 Labs: Abnormal lab results 10/05/08/17 05/08/17 Range/Units 07:46 07:46 09:04 WBC 21.4 H (4.5-11.0) K/mm3 RBC 3.63 L (3.65-5.03) M/mm3 Seg Neuts % (Manual) 89.0 H (40.0-70.0) % Lymphocytes % (Manual) 5.5 L (13.4-35.0) % Seg Neutrophils # Man 19.0 H (1.8-7.7) K/mm3 Monocytes # (Manual) 1.2 H (0.0-0.8) K/mm3 PT (12.2-14.9) Sec. INR (0.87-1.13) D-Dimer (0-234) ng/mlDDU ABG pH (7.350-7.450) pH Units ABG pO2 (80.0-90.0) mm Hg ABG Hemoglobin (12.0-16.0) gm/dl Oxyhemoglobin (95.0-99.0) % Sodium 132 L (137-145) mmol/L Chloride 94.3 L (98-107) mmol/L BUN 25 H (7-17) mg/dL Glucose 332 H (65-100) mg/dL POC Glucose (70-105) ALT (7-56) units/L Alkaline Phosphatase (35-129) units/L NT-Pro-B Natriuret Pep (0-900) pg/mL Albumin (3.9-5) g/dL Urine WBC (Auto) 166.0 H (0.0-6.0) /HPF U Epithel Cells (Auto) 50.0 H (0-13.0) /HPF 05/08/17 05/08/17 05/08/17 Range/Units 09:19 09:19 09:19 WBC 20.6 H (4.5-11.0) K/mm3 RBC 3.53 L (3.65-5.03) M/mm3 Seg Neuts % (Manual) 88.0 H (40.0-70.0) % Lymphocytes % (Manual) 6.0 L (13.4-35.0) % Seg Neutrophils # Man 18.1 H (1.8-7.7) K/mm3 Monocytes # (Manual) (0.0-0.8) K/mm3 PT 18.9 H (12.2-14.9) Sec. INR 1.50 H (0.87-1.13) D-Dimer (0-234) ng/mlDDU ABG pH (7.350-7.450) pH Units ABG pO2 (80.0-90.0) mm Hg ABG Hemoglobin (12.0-16.0) gm/dl Oxyhemoglobin (95.0-99.0) % Sodium 131 L (137-145) mmol/L Chloride 94.9 L (98-107) mmol/L BUN 25 H (7-17) mg/dL Glucose 293 H (65-100) mg/dL POC Glucose (70-105) ALT 82 H (7-56) units/L Alkaline Phosphatase 161 H (35-129) units/L NT-Pro-B Natriuret Pep (0-900) pg/mL Albumin 2.8 L (3.9-5) g/dL Urine WBC (Auto) (0.0-6.0) /HPF U Epithel Cells (Auto) (0-13.0) /HPF 05/08/17 05/08/17 05/08/17 Range/Units 09:19 09:30 10:10 WBC (4.5-11.0) K/mm3 RBC (3.65-5.03) M/mm3 Seg Neuts % (Manual) (40.0-70.0) % Lymphocytes % (Manual) (13.4-35.0) % Seg Neutrophils # Man (1.8-7.7) K/mm3 Monocytes # (Manual) (0.0-0.8) K/mm3 PT (12.2-14.9) Sec. INR (0.87-1.13) D-Dimer 1367.13 H (0-234) ng/mlDDU ABG pH 7.326 L (7.350-7.450) pH Units ABG pO2 75.3 L (80.0-90.0) mm Hg ABG Hemoglobin 10.5 L (12.0-16.0) gm/dl Oxyhemoglobin 92.8 L (95.0-99.0) % Sodium (137-145) mmol/L Chloride (98-107) mmol/L BUN (7-17) mg/dL Glucose (65-100) mg/dL POC Glucose (70-105) ALT (7-56) units/L Alkaline Phosphatase (35-129) units/L NT-Pro-B Natriuret Pep 1764 H (0-900) pg/mL Albumin (3.9-5) g/dL Urine WBC (Auto) (0.0-6.0) /HPF U Epithel Cells (Auto) (0-13.0) /HPF 05/08/17 Range/Units 12:35 WBC (4.5-11.0) K/mm3 RBC (3.65-5.03) M/mm3 Seg Neuts % (Manual) (40.0-70.0) % Lymphocytes % (Manual) (13.4-35.0) % Seg Neutrophils # Man (1.8-7.7) K/mm3 Monocytes # (Manual) (0.0-0.8) K/mm3 PT (12.2-14.9) Sec. INR (0.87-1.13) D-Dimer (0-234) ng/mlDDU ABG pH (7.350-7.450) pH Units ABG pO2 (80.0-90.0) mm Hg ABG Hemoglobin (12.0-16.0) gm/dl Oxyhemoglobin (95.0-99.0) % Sodium (137-145) mmol/L Chloride (98-107) mmol/L BUN (7-17) mg/dL Glucose (65-100) mg/dL POC Glucose 250 H (70-105) ALT (7-56) units/L Alkaline Phosphatase (35-129) units/L NT-Pro-B Natriuret Pep (0-900) pg/mL Albumin (3.9-5) g/dL Urine WBC (Auto) (0.0-6.0) /HPF U Epithel Cells (Auto) (0-13.0) /HPF Assessment and Plan - Patient Problems (1) Sepsis Current Visit: Yes Status: Acute Qualifiers: Sepsis type: Escherichia coli Qualified Code(s): A41.51 - Sepsis due to Escherichia coli [E. coli] Plan to address problem: Sepsis secondary to UTI: Suspected E coli.: Will treat IAW sepsis protocol, IV abx, IVF, supportive care, serial lactic acid, monitor uop q shift, blood cultures. 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 (6) Elevated brain natriuretic peptide (BNP) level Current Visit: Yes Status: Acute Plan to address problem: Suspected New onset CHF: BNP, Echo, monitor uop q shift, resume home medication. F/U echo results. (7) DVT prophylaxis Current Visit: Yes Status: Acute
[2017-05-08] MEDS ORDERED: D50W (25GM) Vial IV PRN ×2 (14:00→14:08)
[2017-05-08] MEDS: NEURONTIN PO SCH ×3 (14:23→22:16)
[2017-05-08] MEDS: ZOSYN/NS 4.5GM/100ML 4.5 GM/100 ML VIAL IV SCH ×2 (14:26→22:20)
[2017-05-08] MEDS: TYLENOL PO PRN ×2 (15:38→22:33)
[2017-05-09] MEDS: NEURONTIN PO SCH ×4 (02:34→22:26)
[2017-05-09] MEDS: ZOSYN/NS 4.5GM/100ML 4.5 GM/100 ML VIAL IV SCH ×3 (06:28→22:23)
[2017-05-09] MEDS: TYLENOL PO PRN (06:30)
[2017-05-09 08:03] LABS: Hematocrit 34.1 % (30.3-42.9); Hemoglobin 10.8 gm/dl (10.1-14.3); Mean Corpuscular HGB Conc 32 % (30-34); Mean Corpuscular Hemoglobin 30 pg (28-32); Mean Corpuscular Volume 94 fl (79-97); Platelet Count 287 K/mm3 (140-440); Red Blood Count 3.61 M/mm3 (3.65-5.03); Red Cell Distribution Width 13.3 % (13.2-15.2)
[2017-05-09 08:12] LABS: BUN/Creatinine Ratio 23; Blood Urea Nitrogen 25 mg/dL (7-17); Carbon Dioxide 24 mmol/L (22-30); Glucose 403 mg/dL (65-100)
[2017-05-09 08:13] LABS: Anion Gap 19 mmol/L; Calcium 9.2 mg/dL (8.4-10.2); Chloride 100.3 mmol/L (98-107); Potassium 4.3 mmol/L (3.6-5.0); Sodium 139 mmol/L (137-145); White Blood Count 20.9 K/mm3 (4.5-11.0)
[2017-05-09 09:22] LABS: Basophils % (Manual) 0 % (0.0-1.8); Blastocytes % (Manual) 0 %; Eosinophils % (Manual) 0 % (0.0-4.3)
[2017-05-09 09:23] LABS: Diff Status Complete; Platelet Clumps Rare; RBC Morphology Normal
[2017-05-09] MEDS ORDERED: NORVASC PO SCH (10:00)
[2017-05-09] MEDS: PROTONIX PO SCH (10:14)
[2017-05-09] MEDS: BABY ASPIRIN PO SCH (10:14)
[2017-05-09] MEDS: NORVASC PO SCH (10:14)
--- NOTE | 2017-05-09 15:00 | Consultation ---
History of Present Illness Consult date: 05/09/17 Requesting physician: KRISTINE MELARA Reason for consult: dyspnea, pulmonary hypertension (concern for DEONTE) History of present illness: 52 y/o, morbidly obese female admitted with shortness of breath and chest pain. ABG done revealed a PaO2 of 75 on 28% (3-4) liters. Patient was admitted as sepsis secondary to urinary source and started on abx therapy. Patient also had complaints of prolonged shortness of breath and difficulty with sleeping. Pulmonary was asked to assess for possible DEONTE. Patient had an echo which showed an RSVP of 30 at rest. She does smoke the occasional cigarette. Remainder of the review is negative. Past History Past Medical History: diabetes, hypertension, other (Morbid Obesity) Past Surgical History: cholecystectomy, Social history: . denies: smoking, alcohol abuse, prescription drug abuse Family history: diabetes, hypertension Medications and Allergies Allergies Allergy/AdvReac Type Severity Reaction Status Date / Time codeine Allergy Itching Verified 02/05/16 09:46 Home Medications Medication Instructions Recorded Confirmed Last Taken Type Aspirin [Aspirin BABY CHEW TAB] 81 mg PO QDAY #30 tab.chew 03/19/15 05/08/17 Unknown Rx Pantoprazole [Protonix TAB] 40 mg PO QDAY #30 tablet 03/19/15 05/08/17 Unknown Rx amLODIPine [Norvasc] 10 mg PO DAILY #30 tab 03/19/15 05/08/17 Unknown Rx Gabapentin [Neurontin] 300 mg PO BID #60 capsule 05/08/15 05/08/17 Unknown Rx amLODIPine [Norvasc] 5 mg PO DAILY #15 tab 12/25/16 05/08/17 Unknown Rx metFORMIN [Glucophage] 500 mg PO BID #30 tablet 12/25/16 05/08/17 Unknown Rx Cyclobenzaprine [Flexeril] 10 mg PO TID PRN #30 tablet 03/19/17 05/08/17 Unknown Rx Naproxen [Naprosyn TAB] 500 mg PO BID PRN #60 tablet 03/19/17 05/08/17 Unknown Rx Active Meds: Active Medications Acetaminophen (Tylenol) 650 mg PO Q4H PRN PRN Reason: Pain MILD(1-3)/Fever >100.5/AHN Last Admin: 05/09/17 06:30 Dose: 650 mg Albuterol (Proventil) 2.5 mg IH Q4HRT PRN PRN Reason: Shortness Of Breath Amlodipine Besylate (Norvasc) 10 mg PO DAILY [facility] Last Admin: 05/09/17 10:14 Dose: 10 mg Aspirin (Baby Aspirin) 81 mg PO QDAY [facility] Last Admin: 05/09/17 10:14 Dose: 81 mg Bisacodyl (Dulcolax) 10 mg ND QDAY PRN PRN Reason: Constipation unrelieved by MOM Cyclobenzaprine HCl (Flexeril) 10 mg PO TID PRN PRN Reason: Muscle Spasm Dextrose (D50w (25gm) Vial) 25 gm IV PRN PRN PRN Reason: HYPOGLYCEMIA Gabapentin (Neurontin) 300 mg PO Q8HR [facility] Last Admin: 05/09/17 13:29 Dose: 300 mg Piperacillin Sod/Tazobactam Sod (Zosyn/Ns 4.5gm/100ml) 4.5 gm in 100 mls @ 200 mls/hr IV Q8HR [facility] PRN Reason: Protocol Last Admin: 05/09/17 13:27 Dose: 200 mls/hr Insulin Human Isoph/Insulin Regular (Novolin 70/30) 10 unit SUB-Q BIDDIAB [facility] Last Admin: 05/09/17 12:42 Dose: 10 unit Insulin Human Regular (Novolin R) 0 units SUB-Q ACHS [facility] PRN Reason: Protocol Last Admin: 05/09/17 13:28 Dose: 8 units Magnesium Hydroxide (Milk Of Magnesia) 30 ml PO Q4H PRN PRN Reason: Constipation Naproxen (Naprosyn) 500 mg PO BID PRN PRN Reason: pain Ondansetron HCl (Zofran) 4 mg IV Q8H PRN PRN Reason: N/V unrelieved by Reglan Pantoprazole Sodium (Protonix) 40 mg PO QDAY [facility] Last Admin: 05/09/17 10:14 Dose: 40 mg Review of Systems All systems: negative Physical Examination Vital signs: Vital Signs Temp Pulse Resp BP Pulse Ox 99.8 F H 117 H 18 136/67 91 05/08/17 06:51 05/08/17 06:51 05/08/17 06:51 05/08/17 06:51 05/08/17 06:51 General appearance: no acute distress, alert Eyes: non-icteric Neck: other (large in circumference) Ascultation: Bilateral: diminished breath sounds Percussion: Bilateral: not dull Tactile fremitus: Bilateral: normal Results - Laboratory Findings CBC and BMP: 05/09/17 07:03 05/09/17 07:03 ABG ABG pH 7.326 pH Units (7.350-7.450) L 05/08/17 10:10 ABG pCO2 49.6 mm Hg 05/08/17 10:10 ABG pO2 75.3 mm Hg (80.0-90.0) L 05/08/17 10:10 ABG O2 Saturation 95.3 % (95.0-99.0) 05/08/17 10:10 PT/INR, D-dimer PT 18.9 Sec. (12.2-14.9) H 05/08/17 09:19 INR 1.50 (0.87-1.13) H 05/08/17 09:19 D-Dimer 1367.13 ng/mlDDU (0-234) H 05/08/17 09:19 Abnormal lab findings: Abnormal Labs 05/08/17 05/08/17 05/09/17 17:18 21:15 05:23 WBC RBC Seg Neuts % (Manual) Lymphocytes % (Manual) Seg Neutrophils # Man Lymphocytes # (Manual) BUN Glucose POC Glucose 278 H 351 H 371 H 05/09/17 05/09/17 05/09/17 07:03 07:03 11:39 WBC 20.9 H RBC 3.61 L Seg Neuts % (Manual) 85.0 H Lymphocytes % (Manual) 3.0 L Seg Neutrophils # Man 17.8 H Lymphocytes # (Manual) 0.6 L BUN 25 H Glucose 403 H POC Glucose 433 H - Diagnostic Findings CT scan - chest: image reviewed (No acute findings, no evidence of acute or chronic lung disease) Assessment and Plan 52 y/o female with sepsis secondary to urinary source, concern for DEONTE/OHS with tobacco abuse 1. Can have sleep study through the hospital. Speak with RT and they can give more info in how to order this. 2. Smoking cessation 3. would suggest daily diuretic therapy given her pulmonary hypertension and evidence of diastolic dysfunction on echo 4. Will need to be assessed for oxygen prior to discharge with walk test. Thank you for this consult. she can follow up with the hospital after she has her sleep study done through the hospital.
--- NOTE | 2017-05-09 15:28 | Progress Note ---
Assessment and Plan Assessment and plan: 52 y/o female with history of HTN presented with c/o fever, urgency and frequency, worsening of left sided weakness Sepsis 2/2 UTI - Patient is being managed according to sepsis protocol CVA acute Vs worsening of chronic with chronic residual left sided weakness - CT head positive for right sided infarct - Will get carotid doppler and ECHO DEONTE - CT chest negative - Pulmoary consulted - Advised weight loss - Sleep stuy /CPAP DM with hyperglycemia - On SSI and basal insulin DVT - lovenox Disposition - continue inpatient care History Interval history: patient was seen and evaluated this morning, she complains headache, weakness on the left side. Hospitalist Physical - Physical exam Narrative exam: Not in cardiopulmonary distress. The patient is morbidly obese. Vital signs as documented. Head exam is unremarkable. No scleral icterus . Neck is without jugular venous distension, thyromegaly, or carotid bruits. Lungs are clear to auscultation. Cardiac exam reveals regular rate and Rhythm. First and second heart sounds normal. No murmurs, rubs or gallops. Abdominal exam reveals normal bowel sounds, no masses, no organomegaly and no aortic enlargement. Extremities are nonedematous and both femoral and pedal pulses are normal. [employer]: left sided weakness. - Constitutional Vitals: Temp Pulse Resp BP Pulse Ox 97.9 F 91 H 22 152/82 99 05/09/17 11:00 05/09/17 11:00 05/09/17 11:00 05/09/17 11:00 05/09/17 11:00 General appearance: Present: mild distress Results - Labs CBC & Chem 7: 05/09/17 07:03 05/09/17 07:03 Labs: Laboratory Last Values WBC 20.9 K/mm3 (4.5-11.0) H 05/09/17 07:03 RBC 3.61 M/mm3 (3.65-5.03) L 05/09/17 07:03 Hgb 10.8 gm/dl (10.1-14.3) 05/09/17 07:03 Hct 34.1 % (30.3-42.9) 05/09/17 07:03 MCV 94 fl (79-97) 05/09/17 07:03 MCH 30 pg (28-32) 05/09/17 07:03 MCHC 32 % (30-34) 05/09/17 07:03 RDW 13.3 % (13.2-15.2) 05/09/17 07:03 Plt Count 287 K/mm3 (140-440) 05/09/17 07:03 Add Manual Diff Complete 05/09/17 07:03 Total Counted 100 05/09/17 07:03 Seg Neutrophils % Social Services 05/09/17 07:03 Seg Neuts % (Manual) 85.0 % (40.0-70.0) H 05/09/17 07:03 Band Neutrophils % 7.0 % 05/09/17 07:03 Lymphocytes % (Manual) 3.0 % (13.4-35.0) L 05/09/17 07:03 Reactive Lymphs % (Man) 0 % 05/09/17 07:03 Monocytes % (Manual) 4.0 % (0.0-7.3) 05/09/17 07:03 Eosinophils % (Manual) 0 % (0.0-4.3) 05/09/17 07:03 Basophils % (Manual) 0 % (0.0-1.8) 05/09/17 07:03 Metamyelocytes % 0 % 05/09/17 07:03 Myelocytes % 1.0 % 05/09/17 07:03 Promyelocytes % 0 % 05/09/17 07:03 Blast Cells % 0 % 05/09/17 07:03 Nucleated RBC % Not Reportable 05/09/17 07:03 Seg Neutrophils # Man 17.8 K/mm3 (1.8-7.7) H 05/09/17 07:03 Band Neutrophils # 1.5 K/mm3 05/09/17 07:03 Lymphocytes # (Manual) 0.6 K/mm3 (1.2-5.4) L 05/09/17 07:03 Abs React Lymphs (Man) 0.0 K/mm3 05/09/17 07:03 Monocytes # (Manual) 0.8 K/mm3 (0.0-0.8) 05/09/17 07:03 Eosinophils # (Manual) 0.0 K/mm3 (0.0-0.4) 05/09/17 07:03 Basophils # (Manual) 0.0 K/mm3 (0.0-0.1) 05/09/17 07:03 Metamyelocytes # 0.0 K/mm3 05/09/17 07:03 Myelocytes # 0.2 K/mm3 05/09/17 07:03 Promyelocytes # 0.0 K/mm3 05/09/17 07:03 Blast Cells # 0.0 K/mm3 05/09/17 07:03 WBC Morphology Not Reportable 05/09/17 07:03 Hypersegmented Neuts Not Reportable 05/09/17 07:03 Hyposegmented Neuts Not Reportable 05/09/17 07:03 Hypogranular Neuts Not Reportable 05/09/17 07:03 Smudge Cells Not Reportable 05/09/17 07:03 Toxic Granulation Not Reportable 05/09/17 07:03 Toxic Vacuolation Not Reportable 05/09/17 07:03 Dohle Bodies Not Reportable 05/09/17 07:03 Pelger-Huet Anomaly Not Reportable 05/09/17 07:03 Michael Rods Not Reportable 05/09/17 07:03 Platelet Estimate Appears normal 05/09/17 07:03 Clumped Platelets Rare 05/09/17 07:03 Plt Clumps, EDTA Not Reportable 05/09/17 07:03 Large Platelets Not Reportable 05/09/17 07:03 Giant Platelets Not Reportable 05/09/17 07:03 Platelet Satelliting Not Reportable 05/09/17 07:03 Plt Morphology Comment Not Reportable 05/09/17 07:03 RBC Morphology Normal 05/09/17 07:03 Dimorphic RBCs Not Reportable 05/09/17 07:03 Polychromasia Not Reportable 05/09/17 07:03 Hypochromasia Not Reportable 05/09/17 07:03 Poikilocytosis Not Reportable 05/09/17 07:03 Anisocytosis Not Reportable 05/09/17 07:03 Microcytosis Not Reportable 05/09/17 07:03 Macrocytosis Not Reportable 05/09/17 07:03 Spherocytes Not Reportable 05/09/17 07:03 Pappenheimer Bodies Not Reportable 05/09/17 07:03 Sickle Cells Not Reportable 05/09/17 07:03 Target Cells Not Reportable 05/09/17 07:03 Tear Drop Cells Not Reportable 05/09/17 07:03 Ovalocytes Not Reportable 05/09/17 07:03 Helmet Cells Not Reportable 05/09/17 07:03 [place] Bodies Not Reportable 05/09/17 07:03 [place] Rings Not Reportable 05/09/17 07:03 Madeleine Cells Not Reportable 05/09/17 07:03 Bite Cells Not Reportable 05/09/17 07:03 Crenated Cell Not Reportable 05/09/17 07:03 Elliptocytes Not Reportable 05/09/17 07:03 Acanthocytes (Spur) Not Reportable 05/09/17 07:03 Rouleaux Not Reportable 05/09/17 07:03 Hemoglobin C Crystals Not Reportable 05/09/17 07:03 Schistocytes Not Reportable 05/09/17 07:03 Malaria parasites Not Reportable 05/09/17 07:03 Talat Bodies Not Reportable 05/09/17 07:03 Hem Pathologist Commnt No 05/09/17 07:03 PT 18.9 Sec. (12.2-14.9) H 05/08/17 09:19 INR 1.50 (0.87-1.13) H 05/08/17 09:19 D-Dimer 1367.13 ng/mlDDU (0-234) H 05/08/17 09:19 ABG pH 7.326 pH Units (7.350-7.450) L 05/08/17 10:10 ABG pCO2 49.6 mm Hg 05/08/17 10:10 ABG pO2 75.3 mm Hg (80.0-90.0) L 05/08/17 10:10 ABG HCO3 25.3 mmol/L (20.0-26.0) 05/08/17 10:10 ABG O2 Saturation 95.3 % (95.0-99.0) 05/08/17 10:10 ABG O2 Content 13.8 (0.0-44) 05/08/17 10:10 ABG Base Excess -1.0 mmol/L (-2.0-3.0) 05/08/17 10:10 ABG Hemoglobin 10.5 gm/dl (12.0-16.0) L 05/08/17 10:10 ABG Carboxyhemoglobin 2.2 % (0.0-5.0) 05/08/17 10:10 ABG Methemoglobin 0.4 % (0.0-1.5) 05/08/17 10:10 Oxyhemoglobin 92.8 % (95.0-99.0) L 05/08/17 10:10 FiO2 28 % 05/08/17 10:10 Sodium 139 mmol/L (137-145) D 05/09/17 07:03 Potassium 4.3 mmol/L (3.6-5.0) 05/09/17 07:03 Chloride 100.3 mmol/L (98-107) 05/09/17 07:03 Carbon Dioxide 24 mmol/L (22-30) 05/09/17 07:03 Anion Gap 19 mmol/L 05/09/17 07:03 BUN 25 mg/dL (7-17) H 05/09/17 07:03 Creatinine 1.1 mg/dL (0.7-1.2) 05/09/17 07:03 Estimated GFR > 60 ml/min 05/09/17 07:03 BUN/Creatinine Ratio 23 % 05/09/17 07:03 Glucose 403 mg/dL (65-100) H 05/09/17 07:03 POC Glucose 433 (70-105) H 05/09/17 11:39 Lactic Acid 1.30 mmol/L (0.7-2.0) 05/08/17 23:15 Calcium 9.2 mg/dL (8.4-10.2) 05/09/17 07:03 Magnesium 1.90 mg/dL (1.7-2.3) 05/08/17 09:30 Total Bilirubin 0.60 mg/dL (0.1-1.2) 05/08/17 09:19 AST 27 units/L (5-40) 05/08/17 09:19 ALT 82 units/L (7-56) H 05/08/17 09:19 Alkaline Phosphatase 161 units/L (35-129) H 05/08/17 09:19 Troponin T < 0.010 ng/mL (0.00-0.029) 05/08/17 07:46 NT-Pro-B Natriuret Pep 1764 pg/mL (0-900) H 05/08/17 09:30 Total Protein 6.9 g/dL (6.3-8.2) 05/08/17 09:19 Albumin 2.8 g/dL (3.9-5) L 05/08/17 09:19 Albumin/Globulin Ratio 0.7 % 05/08/17 09:19 Urine Color [place] (Yellow) 05/08/17 09:04 Urine Turbidity Clear (Clear) 05/08/17 09:04 Urine pH 5.0 (5.0-7.0) 05/08/17 09:04 Ur Specific [place] 1.015 (1.003-1.030) 05/08/17 09:04 Urine Protein 100 mg/dl mg/dL (Negative) 05/08/17 09:04 Urine Glucose (UA) >=500 mg/dL (Negative) 05/08/17 09:04 Urine Ketones Neg mg/dL (Negative) 05/08/17 09:04 Urine Blood Lg (Negative) 05/08/17 09:04 Urine Nitrite Neg (Negative) 05/08/17 09:04 Urine Bilirubin Neg (Negative) 05/08/17 09:04 Urine Urobilinogen 2.0 mg/dL (<2.0) 05/08/17 09:04 Ur Leukocyte Esterase Mod (Negative) 05/08/17 09:04 Urine WBC (Auto) 166.0 /HPF (0.0-6.0) H 05/08/17 09:04 Urine RBC (Auto) 79.0 /HPF (0.0-6.0) 05/08/17 09:04 U Epithel Cells (Auto) 50.0 /HPF (0-13.0) H 05/08/17 09:04 Urine Bacteria (Auto) 1+ /HPF (Negative) 05/08/17 09:04 Urine WBC Clumps 2+ /HPF 05/08/17 09:04 Ur Transition Epith Cell 2 /HPF 05/08/17 09:04 Urine Mucus Few /HPF 05/08/17 09:04 Blood Type O POSITIVE 05/08/17 19:44 Antibody Screen TNR 05/08/17 19:44 AMMY Antibody Screen Negative 05/08/17 19:44 - Imaging and Cardiology CT Scan - head: report reviewed (Right parietal and basal ganglia infarct) Imaging and Cardiology: Echo diastolic dysfunction
--- NOTE | 2017-05-09 18:11 | Magnetic Resonance Report ---
FINAL REPORT EXAM: MR BRAIN WO CON HISTORY: left sided weakness TECHNIQUE: MRI brain without contrast PRIORS: Correlation made to prior CT of May 08, 2017 FINDINGS: There is normal signal throughout the brain parenchyma. No evidence for brain edema pattern or mass effect. Ventricles and sulci are within normal limits. No evidence for acute intra-axial or extra-axial hemorrhage. No evidence for acute restriction on diffusion-weighted study. Brainstem and posterior fossa structures are unremarkable. IMPRESSION: Negative. No focal abnormality identified
[2017-05-09] MEDS: LOVENOX SUB-Q SCH (22:24)
[2017-05-10] MEDS: ZOSYN/NS 4.5GM/100ML 4.5 GM/100 ML VIAL IV SCH ×3 (05:45→22:40)
[2017-05-10] MEDS: NEURONTIN PO SCH ×3 (05:46→22:38)
[2017-05-10] MEDS: TYLENOL PO PRN ×2 (05:51→20:45)
[2017-05-10 06:20] LABS: Hematocrit 32.6 % (30.3-42.9); Mean Corpuscular HGB Conc 34 % (30-34); Mean Corpuscular Hemoglobin 31 pg (28-32); Mean Corpuscular Volume 92 fl (79-97); Platelet Count 308 K/mm3 (140-440); Red Blood Count 3.54 M/mm3 (3.65-5.03); Red Cell Distribution Width 13.6 % (13.2-15.2)
[2017-05-10 06:23] LABS: White Blood Count 20.7 K/mm3 (4.5-11.0)
[2017-05-10 08:00] LABS: Anisocytosis 1+; Basophils % (Manual) 0 % (0.0-1.8); Blastocytes % (Manual) 0 %
[2017-05-10 08:01] LABS: Diff Status Complete; Stomatocytes 2+
[2017-05-10 08:31] LABS: Anion Gap 15 mmol/L; BUN/Creatinine Ratio 28; Blood Urea Nitrogen 28 mg/dL (7-17); Calcium 9.3 mg/dL (8.4-10.2); Carbon Dioxide 27 mmol/L (22-30); Chloride 102.5 mmol/L (98-107); Glucose 117 mg/dL (65-100); Sodium 140 mmol/L (137-145)
[2017-05-10] MEDS: NORVASC PO SCH (09:32)
[2017-05-10] MEDS: PROTONIX PO SCH (09:33)
[2017-05-10] MEDS: BABY ASPIRIN PO SCH (09:33)
--- NOTE | 2017-05-10 10:30 | Progress Note ---
Assessment and Plan Assessment and plan: Sepsis 2/2 UTI - Patient is being managed according to sepsis protocol Acute CVA - CT head positive for right sided infarct - Echocardiogram revealed EF 55-60% with diastolic dysfunction. No report of embolic source. Carotid Doppler ultrasound negative with less than 50% stenosis bilaterally. -MRI negative. DEONTE - CT chest negative - Pulmoary consulted - Advised weight loss - Sleep study as an outpatient. -Pulmonary following. Acute diastolic heart failure. -Consider cardiology consultation. - Start Lasix IV daily for now. Pulmonary hypertension. -Medical management DM with hyperglycemia - On SSI and basal insulin DVT - lovenox Disposition - continue inpatient care History Interval history: No new issues overnight. Hospitalist Physical - Constitutional Vitals: Temp Pulse Resp BP Pulse Ox 97.7 F 97 H 22 137/76 89 05/10/17 09:03 05/10/17 09:32 05/10/17 09:03 05/10/17 09:32 05/10/17 09:03 General appearance: Present: no acute distress - EENT Eyes: Present: PERRL, EOM intact ENT: hearing intact, clear oral mucosa, dentition normal - Neck Neck: Present: supple, normal ROM - Respiratory Respiratory effort: normal Respiratory: bilateral: CTA - Cardiovascular Rhythm: regular Heart Sounds: Present: S1 & S2. Absent: gallop, rub - Extremities Extremities: no ischemia, No edema, Full ROM - Abdominal General gastrointestinal: soft, non-tender, non-distended, normal bowel sounds - Integumentary Integumentary: Present: clear, warm, dry - Neurologic Neurologic: CNII-XII intact, moves all extremities Results - Labs CBC & Chem 7: 05/10/17 05:45 05/10/17 07:45 Labs: Laboratory Last Values WBC 20.7 K/mm3 (4.5-11.0) H 05/10/17 05:45 RBC 3.54 M/mm3 (3.65-5.03) L 05/10/17 05:45 Hgb 11.0 gm/dl (10.1-14.3) 05/10/17 05:45 Hct 32.6 % (30.3-42.9) 05/10/17 05:45 MCV 92 fl (79-97) 05/10/17 05:45 MCH 31 pg (28-32) 05/10/17 05:45 MCHC 34 % (30-34) 05/10/17 05:45 RDW 13.6 % (13.2-15.2) 05/10/17 05:45 Plt Count 308 K/mm3 (140-440) 05/10/17 05:45 Add Manual Diff Complete 05/10/17 05:45 Total Counted 100 05/10/17 05:45 Seg Neutrophils % Speeder Worker 05/09/17 07:03 Seg Neuts % (Manual) 80.0 % (40.0-70.0) H 05/10/17 05:45 Band Neutrophils % 5.0 % 05/10/17 05:45 Lymphocytes % (Manual) 5.0 % (13.4-35.0) L 05/10/17 05:45 Reactive Lymphs % (Man) 0 % 05/10/17 05:45 Monocytes % (Manual) 9.0 % (0.0-7.3) H 05/10/17 05:45 Eosinophils % (Manual) 1.0 % (0.0-4.3) 05/10/17 05:45 Basophils % (Manual) 0 % (0.0-1.8) 05/10/17 05:45 Metamyelocytes % 0 % 05/10/17 05:45 Myelocytes % 0 % 05/10/17 05:45 Promyelocytes % 0 % 05/10/17 05:45 Blast Cells % 0 % 05/10/17 05:45 Nucleated RBC % Not Reportable 05/10/17 05:45 Seg Neutrophils # Man 16.6 K/mm3 (1.8-7.7) H 05/10/17 05:45 Band Neutrophils # 1.0 K/mm3 05/10/17 05:45 Lymphocytes # (Manual) 1.0 K/mm3 (1.2-5.4) L 05/10/17 05:45 Abs React Lymphs (Man) 0.0 K/mm3 05/10/17 05:45 Monocytes # (Manual) 1.9 K/mm3 (0.0-0.8) H 05/10/17 05:45 Eosinophils # (Manual) 0.2 K/mm3 (0.0-0.4) 05/10/17 05:45 Basophils # (Manual) 0.0 K/mm3 (0.0-0.1) 05/10/17 05:45 Metamyelocytes # 0.0 K/mm3 05/10/17 05:45 Myelocytes # 0.0 K/mm3 05/10/17 05:45 Promyelocytes # 0.0 K/mm3 05/10/17 05:45 Blast Cells # 0.0 K/mm3 05/10/17 05:45 WBC Morphology Not Reportable 05/10/17 05:45 Hypersegmented Neuts Not Reportable 05/10/17 05:45 Hyposegmented Neuts Not Reportable 05/10/17 05:45 Hypogranular Neuts Not Reportable 05/10/17 05:45 Smudge Cells Not Reportable 05/10/17 05:45 Toxic Granulation Not Reportable 05/10/17 05:45 Toxic Vacuolation Not Reportable 05/10/17 05:45 Dohle Bodies Not Reportable 05/10/17 05:45 Pelger-Huet Anomaly Not Reportable 05/10/17 05:45 Michael Rods Not Reportable 05/10/17 05:45 Platelet Estimate Appears normal 05/10/17 05:45 Clumped Platelets Not Reportable 05/10/17 05:45 Plt Clumps, EDTA Not Reportable 05/10/17 05:45 Large Platelets Not Reportable 05/10/17 05:45 Giant Platelets Not Reportable 05/10/17 05:45 Platelet Satelliting Not Reportable 05/10/17 05:45 Plt Morphology Comment Not Reportable 05/10/17 05:45 RBC Morphology Not Reportable 05/10/17 05:45 Dimorphic RBCs Not Reportable 05/10/17 05:45 Polychromasia Not Reportable 05/10/17 05:45 Hypochromasia Not Reportable 05/10/17 05:45 Poikilocytosis Not Reportable 05/10/17 05:45 Anisocytosis 1+ 05/10/17 05:45 Microcytosis Not Reportable 05/10/17 05:45 Macrocytosis Not Reportable 05/10/17 05:45 Spherocytes Not Reportable 05/10/17 05:45 Pappenheimer Bodies Not Reportable 05/10/17 05:45 Sickle Cells Not Reportable 05/10/17 05:45 Target Cells Not Reportable 05/10/17 05:45 Tear Drop Cells Not Reportable 05/10/17 05:45 Ovalocytes Not Reportable 05/10/17 05:45 Stomatocytes 2+ 05/10/17 05:45 Helmet Cells Not Reportable 05/10/17 05:45 Mcdaniel[place] Bodies Not Reportable 05/10/17 05:45 [place] Rings Not Reportable 05/10/17 05:45 Madeleine Cells Not Reportable 05/10/17 05:45 Bite Cells Not Reportable 05/10/17 05:45 Crenated Cell Not Reportable 05/10/17 05:45 Elliptocytes Not Reportable 05/10/17 05:45 Acanthocytes (Spur) Not Reportable 05/10/17 05:45 Rouleaux Not Reportable 05/10/17 05:45 Hemoglobin C Crystals Not Reportable 05/10/17 05:45 Schistocytes Not Reportable 05/10/17 05:45 Malaria parasites Not Reportable 05/10/17 05:45 [place] Bodies Not Reportable 05/10/17 05:45 Hem Pathologist Commnt No 05/10/17 05:45 PT 18.9 Sec. (12.2-14.9) H 05/08/17 09:19 INR 1.50 (0.87-1.13) H 05/08/17 09:19 D-Dimer 1367.13 ng/mlDDU (0-234) H 05/08/17 09:19 ABG pH 7.326 pH Units (7.350-7.450) L 05/08/17 10:10 ABG pCO2 49.6 mm Hg 05/08/17 10:10 ABG pO2 75.3 mm Hg (80.0-90.0) L 05/08/17 10:10 ABG HCO3 25.3 mmol/L (20.0-26.0) 05/08/17 10:10 ABG O2 Saturation 95.3 % (95.0-99.0) 05/08/17 10:10 ABG O2 Content 13.8 (0.0-44) 05/08/17 10:10 ABG Base Excess -1.0 mmol/L (-2.0-3.0) 05/08/17 10:10 ABG Hemoglobin 10.5 gm/dl (12.0-16.0) L 05/08/17 10:10 ABG Carboxyhemoglobin 2.2 % (0.0-5.0) 05/08/17 10:10 ABG Methemoglobin 0.4 % (0.0-1.5) 05/08/17 10:10 Oxyhemoglobin 92.8 % (95.0-99.0) L 05/08/17 10:10 FiO2 28 % 05/08/17 10:10 Sodium 140 mmol/L (137-145) 05/10/17 07:45 Potassium 4.0 mmol/L (3.6-5.0) 05/10/17 07:45 Chloride 102.5 mmol/L (98-107) 05/10/17 07:45 Carbon Dioxide 27 mmol/L (22-30) 05/10/17 07:45 Anion Gap 15 mmol/L 05/10/17 07:45 BUN 28 mg/dL (7-17) H 05/10/17 07:45 Creatinine 1.0 mg/dL (0.7-1.2) 05/10/17 07:45 Estimated GFR > 60 ml/min 05/10/17 07:45 BUN/Creatinine Ratio 28 % 05/10/17 07:45 Glucose 117 mg/dL (65-100) H 05/10/17 07:45 POC Glucose 147 (70-105) H 05/10/17 06:50 Lactic Acid 1.30 mmol/L (0.7-2.0) 05/08/17 23:15 Calcium 9.3 mg/dL (8.4-10.2) 05/10/17 07:45 Magnesium 1.90 mg/dL (1.7-2.3) 05/08/17 09:30 Total Bilirubin 0.60 mg/dL (0.1-1.2) 05/08/17 09:19 AST 27 units/L (5-40) 05/08/17 09:19 ALT 82 units/L (7-56) H 05/08/17 09:19 Alkaline Phosphatase 161 units/L (35-129) H 05/08/17 09:19 Troponin T < 0.010 ng/mL (0.00-0.029) 05/08/17 07:46 NT-Pro-B Natriuret Pep 1764 pg/mL (0-900) H 05/08/17 09:30 Total Protein 6.9 g/dL (6.3-8.2) 05/08/17 09:19 Albumin 2.8 g/dL (3.9-5) L 05/08/17 09:19 Albumin/Globulin Ratio 0.7 % 05/08/17 09:19 Urine Color [place] (Yellow) 05/08/17 09:04 Urine Turbidity Clear (Clear) 05/08/17 09:04 Urine pH 5.0 (5.0-7.0) 05/08/17 09:04 Ur Specific [place] 1.015 (1.003-1.030) 05/08/17 09:04 Urine Protein 100 mg/dl mg/dL (Negative) 05/08/17 09:04 Urine Glucose (UA) >=500 mg/dL (Negative) 05/08/17 09:04 Urine Ketones Neg mg/dL (Negative) 05/08/17 09:04 Urine Blood Lg (Negative) 05/08/17 09:04 Urine Nitrite Neg (Negative) 05/08/17 09:04 Urine Bilirubin Neg (Negative) 05/08/17 09:04 Urine Urobilinogen 2.0 mg/dL (<2.0) 05/08/17 09:04 Ur Leukocyte Esterase Mod (Negative) 05/08/17 09:04 Urine WBC (Auto) 166.0 /HPF (0.0-6.0) H 05/08/17 09:04 Urine RBC (Auto) 79.0 /HPF (0.0-6.0) 05/08/17 09:04 U Epithel Cells (Auto) 50.0 /HPF (0-13.0) H 05/08/17 09:04 Urine Bacteria (Auto) 1+ /HPF (Negative) 05/08/17 09:04 Urine WBC Clumps 2+ /HPF 05/08/17 09:04 Ur Transition Epith Cell 2 /HPF 05/08/17 09:04 Urine Mucus Few /HPF 05/08/17 09:04 Blood Type O POSITIVE 05/08/17 19:44 Antibody Screen TNR 05/08/17 19:44 AMMY Antibody Screen Negative 05/08/17 19:44
[2017-05-10] MEDS: K-DUR PO SCH (12:39)
[2017-05-10] MEDS: LASIX IV SCH (12:41)
--- NOTE | 2017-05-10 13:24 | Consultation ---
History of Present Illness - Reason for Consult Consult date: 05/10/17 stroke - History of Present Illness patient is seen and further assessed she has slight stuttering speech and left filed cut otherwise the neuro exam is normal I detect no sezure activity... ECHO is normal except HTN hypertrophy rec high dose statin BP control and ASA 325 mg full note dicated NIH stroke scale is 1 Past History Past Medical History: diabetes, hypertension, other (Morbid Obesity) Past Surgical History: cholecystectomy, Social history: . denies: smoking, alcohol abuse, prescription drug abuse Family history: diabetes, hypertension Medications and Allergies Allergies Allergy/AdvReac Type Severity Reaction Status Date / Time codeine Allergy Itching Verified 02/05/16 09:46 Home Medications Medication Instructions Recorded Confirmed Last Taken Type Aspirin [Aspirin BABY CHEW TAB] 81 mg PO QDAY #30 tab.chew 03/19/15 05/08/17 Unknown Rx Pantoprazole [Protonix TAB] 40 mg PO QDAY #30 tablet 03/19/15 05/08/17 Unknown Rx amLODIPine [Norvasc] 10 mg PO DAILY #30 tab 03/19/15 05/08/17 Unknown Rx Gabapentin [Neurontin] 300 mg PO BID #60 capsule 05/08/15 05/08/17 Unknown Rx amLODIPine [Norvasc] 5 mg PO DAILY #15 tab 12/25/16 05/08/17 Unknown Rx metFORMIN [Glucophage] 500 mg PO BID #30 tablet 12/25/16 05/08/17 Unknown Rx Cyclobenzaprine [Flexeril] 10 mg PO TID PRN #30 tablet 03/19/17 05/08/17 Unknown Rx Naproxen [Naprosyn TAB] 500 mg PO BID PRN #60 tablet 03/19/17 05/08/17 Unknown Rx Active Meds: Active Medications Acetaminophen (Tylenol) 650 mg PO Q4H PRN PRN Reason: Pain MILD(1-3)/Fever >100.5/AHN Last Admin: 05/10/17 05:51 Dose: 650 mg Albuterol (Proventil) 2.5 mg IH Q4HRT PRN PRN Reason: Shortness Of Breath Amlodipine Besylate (Norvasc) 10 mg PO DAILY [facility] Last Admin: 05/10/17 09:32 Dose: 10 mg Aspirin (Baby Aspirin) 81 mg PO QDAY [facility] Last Admin: 05/10/17 09:33 Dose: 81 mg Atorvastatin Calcium (Lipitor) 40 mg PO QHS [facility] Last Admin: 05/09/17 22:26 Dose: 40 mg Bisacodyl (Dulcolax) 10 mg OK QDAY PRN PRN Reason: Constipation unrelieved by MOM Cyclobenzaprine HCl (Flexeril) 10 mg PO TID PRN PRN Reason: Muscle Spasm Dextrose (D50w (25gm) Vial) 25 gm IV PRN PRN PRN Reason: HYPOGLYCEMIA Enoxaparin Sodium (Lovenox) 40 mg SUB-Q QDAY@2200 [facility] Last Admin: 05/09/17 22:24 Dose: 40 mg Furosemide (Lasix) 40 mg IV QDAY [facility] Last Admin: 05/10/17 12:41 Dose: Not Given Gabapentin (Neurontin) 300 mg PO Q8HR [facility] Last Admin: 05/10/17 05:46 Dose: 300 mg Piperacillin Sod/Tazobactam Sod (Zosyn/Ns 4.5gm/100ml) 4.5 gm in 100 mls @ 200 mls/hr IV Q8HR [facility] PRN Reason: Protocol Last Admin: 05/10/17 05:45 Dose: 200 mls/hr Insulin Human Isoph/Insulin Regular (Novolin 70/30) 10 unit SUB-Q BIDDIAB [facility] Last Admin: 05/10/17 09:31 Dose: 10 unit Insulin Human Regular (Novolin R) 0 units SUB-Q ACHS [facility] PRN Reason: Protocol Last Admin: 05/10/17 12:38 Dose: 2 units Magnesium Hydroxide (Milk Of Magnesia) 30 ml PO Q4H PRN PRN Reason: Constipation Naproxen (Naprosyn) 500 mg PO BID PRN PRN Reason: pain Ondansetron HCl (Zofran) 4 mg IV Q8H PRN PRN Reason: N/V unrelieved by Reglan Pantoprazole Sodium (Protonix) 40 mg PO QDAY [facility] Last Admin: 05/10/17 09:33 Dose: 40 mg Potassium Chloride (K-Dur) 10 meq PO QDAY [facility] Last Admin: 05/10/17 12:39 Dose: 10 meq Exam - Constitutional Vitals: Temp Pulse Resp BP Pulse Ox 97.7 F 97 H 22 137/76 89 05/10/17 09:03 05/10/17 09:32 05/10/17 09:03 05/10/17 09:32 05/10/17 09:03 Results - Labs CBC & Chem 7: 05/10/17 05:45 05/10/17 07:45 Labs: Abnormal lab results 05/09/17 05/09/17 05/10/17 Range/Units 17:44 21:29 05:45 WBC 20.7 H (4.5-11.0) K/mm3 RBC 3.54 L (3.65-5.03) M/mm3 Seg Neuts % (Manual) 80.0 H (40.0-70.0) % Lymphocytes % (Manual) 5.0 L (13.4-35.0) % Monocytes % (Manual) 9.0 H (0.0-7.3) % Seg Neutrophils # Man 16.6 H (1.8-7.7) K/mm3 Lymphocytes # (Manual) 1.0 L (1.2-5.4) K/mm3 Monocytes # (Manual) 1.9 H (0.0-0.8) K/mm3 BUN (7-17) mg/dL Glucose (65-100) mg/dL POC Glucose 348 H 372 H (70-105) 05/10/17 05/10/17 05/10/17 Range/Units 06:50 07:45 11:34 WBC (4.5-11.0) K/mm3 RBC (3.65-5.03) M/mm3 Seg Neuts % (Manual) (40.0-70.0) % Lymphocytes % (Manual) (13.4-35.0) % Monocytes % (Manual) (0.0-7.3) % Seg Neutrophils # Man (1.8-7.7) K/mm3 Lymphocytes # (Manual) (1.2-5.4) K/mm3 Monocytes # (Manual) (0.0-0.8) K/mm3 BUN 28 H (7-17) mg/dL Glucose 117 H (65-100) mg/dL POC Glucose 147 H 181 H (70-105)
[2017-05-10] MEDS: LOVENOX SUB-Q SCH (22:39)
[2017-05-11] MEDS: NEURONTIN PO SCH ×3 (06:03→22:18)
[2017-05-11] MEDS: ZOSYN/NS 4.5GM/100ML 4.5 GM/100 ML VIAL IV SCH ×3 (06:03→22:18)
--- NOTE | 2017-05-11 08:02 | Consultation ---
HISTORY OF PRESENT ILLNESS: This is a 52-year-old black female that presents to [facility] as emergency admission on 05/08/2017. This patient presented with a chief complaint of chest pain and generalized body aches. The patient presented with a 1 week history of shortness of breath, chest pain, complaining of urinary frequency, dysuria x 2 days. Subsequent to this, though the patient began to experience difficulty with speech, loss of vision, and had stuttering and stammering speech. She was complaining of profound weakness at that point. She denies having had a prior history of strokes in the past. Since admission, she did notice that she had more slurring of speech and more difficulty with talking. I have gone over her MRI scan of the brain, which does not show any focal abnormalities. She has carotid Doppler study reports, which are unremarkable. She has also had a CT scan of the head, which shows subtle hypodensity in the right deep white matter suggestive for nonhemorrhagic infarct that is in the right parietal lobe. The patient also has had an echocardiogram, which reveals an ejection fraction of 55% to 60%, trace of aortic regurgitation, slight calcification of the aortic leaflet, mitral valve trace regurgitation, left ventricular size is normal, and the contractility of the wall was unremarkable. There was mild left ventricular hypertrophy. Since admission, the patient states that she is feeling a great deal better. PHYSICAL EXAMINATION: VITAL SIGNS: Her present blood pressure is 137/76, pulse rate is 97, the pO2 on room air is 89%, and temperature is 97.7 degrees. NEUROLOGIC: She is alert, has symmetrical movements of her upper extremities. She does have stammering and stuttering speech. She has a left gaze preference. She may have a very subtle visual field cut to the left side. No seizure activities noted. No tremors or asterixis. Motor tone is to my examination normal, in fact she is holding a cell phone on her left hand and has been reviewing data of the cell phone indicate she has a reasonably good coordination in vision. Examination shows no evidence of any tremors drift or seizure activity. IMPRESSION: Acute stroke, right cerebral hemisphere based on CT finding. Curiously, the MRI did not document this and she has a normal echo, likely cause of this is hypertension. Recommend high-dose lipid-lowering agent such as statin, Lipitor 80 mg daily, anti-hypertensives, aspirins 325 mg daily. Precipitating factor of this could have been the urinary tract infection, did mention that the patient needs to be on a stroke reduction plan to prevent further strokes. NIH index stroke scale on this patient is 1. JOB# [id number] ZINA/NTS
[2017-05-11] MEDS: TYLENOL PO PRN (08:16)
--- NOTE | 2017-05-11 10:23 | Progress Note ---
Assessment and Plan Assessment and plan: Sepsis 2/2 UTI - Patient is being managed according to sepsis protocol -Urine and blood cultures are negative Acute CVA - CT head positive for right sided infarct - Echocardiogram revealed EF 55-60% with diastolic dysfunction. No report of embolic source. Carotid Doppler ultrasound negative with less than 50% stenosis bilaterally. -MRI negative. DEONTE - CT chest negative - Pulmoary following - Advised weight loss - Sleep study as an outpatient. Acute diastolic heart failure. -Consider cardiology consultation. - Continue Lasix IV daily for now. Pulmonary hypertension. -Medical management Acute hypoxic respiratory failure. -Etiology secondary to DEONTE/OHS, pulmonary hypertension and acute diastolic heart failure. -Will need to be assessed for oxygen prior to discharge with walk test-- discussed with case management. DM with hyperglycemia - On SSI and basal insulin DVT - lovenox Disposition - continue inpatient care History Interval history: No new issues overnight. Hospitalist Physical - Constitutional Vitals: Temp Pulse Resp BP Pulse Ox 100.1 F H 94 H 18 116/56 94 05/11/17 07:59 05/11/17 07:59 05/11/17 08:16 05/11/17 07:59 05/11/17 07:59 General appearance: Present: no acute distress - EENT Eyes: Present: PERRL, EOM intact ENT: hearing intact, clear oral mucosa, dentition normal - Neck Neck: Present: supple, normal ROM - Respiratory Respiratory effort: normal Respiratory: bilateral: diminished - Cardiovascular Rhythm: regular Heart Sounds: Present: S1 & S2. Absent: gallop, rub - Extremities Extremities: no ischemia, No edema, Full ROM - Abdominal General gastrointestinal: soft, non-tender, non-distended, normal bowel sounds - Integumentary Integumentary: Present: clear, warm, dry - Neurologic Neurologic: CNII-XII intact, moves all extremities Results - Labs CBC & Chem 7: 05/10/17 05:45 05/10/17 07:45 Labs: Laboratory Last Values WBC 20.7 K/mm3 (4.5-11.0) H 05/10/17 05:45 RBC 3.54 M/mm3 (3.65-5.03) L 05/10/17 05:45 Hgb 11.0 gm/dl (10.1-14.3) 05/10/17 05:45 Hct 32.6 % (30.3-42.9) 05/10/17 05:45 MCV 92 fl (79-97) 05/10/17 05:45 MCH 31 pg (28-32) 05/10/17 05:45 MCHC 34 % (30-34) 05/10/17 05:45 RDW 13.6 % (13.2-15.2) 05/10/17 05:45 Plt Count 308 K/mm3 (140-440) 05/10/17 05:45 Add Manual Diff Complete 05/10/17 05:45 Total Counted 100 05/10/17 05:45 Seg Neutrophils % Intake Specialist 05/09/17 07:03 Seg Neuts % (Manual) 80.0 % (40.0-70.0) H 05/10/17 05:45 Band Neutrophils % 5.0 % 05/10/17 05:45 Lymphocytes % (Manual) 5.0 % (13.4-35.0) L 05/10/17 05:45 Reactive Lymphs % (Man) 0 % 05/10/17 05:45 Monocytes % (Manual) 9.0 % (0.0-7.3) H 05/10/17 05:45 Eosinophils % (Manual) 1.0 % (0.0-4.3) 05/10/17 05:45 Basophils % (Manual) 0 % (0.0-1.8) 05/10/17 05:45 Metamyelocytes % 0 % 05/10/17 05:45 Myelocytes % 0 % 05/10/17 05:45 Promyelocytes % 0 % 05/10/17 05:45 Blast Cells % 0 % 05/10/17 05:45 Nucleated RBC % Not Reportable 05/10/17 05:45 Seg Neutrophils # Man 16.6 K/mm3 (1.8-7.7) H 05/10/17 05:45 Band Neutrophils # 1.0 K/mm3 05/10/17 05:45 Lymphocytes # (Manual) 1.0 K/mm3 (1.2-5.4) L 05/10/17 05:45 Abs React Lymphs (Man) 0.0 K/mm3 05/10/17 05:45 Monocytes # (Manual) 1.9 K/mm3 (0.0-0.8) H 05/10/17 05:45 Eosinophils # (Manual) 0.2 K/mm3 (0.0-0.4) 05/10/17 05:45 Basophils # (Manual) 0.0 K/mm3 (0.0-0.1) 05/10/17 05:45 Metamyelocytes # 0.0 K/mm3 05/10/17 05:45 Myelocytes # 0.0 K/mm3 05/10/17 05:45 Promyelocytes # 0.0 K/mm3 05/10/17 05:45 Blast Cells # 0.0 K/mm3 05/10/17 05:45 WBC Morphology Not Reportable 05/10/17 05:45 Hypersegmented Neuts Not Reportable 05/10/17 05:45 Hyposegmented Neuts Not Reportable 05/10/17 05:45 Hypogranular Neuts Not Reportable 05/10/17 05:45 Smudge Cells Not Reportable 05/10/17 05:45 Toxic Granulation Not Reportable 05/10/17 05:45 Toxic Vacuolation Not Reportable 05/10/17 05:45 Dohle Bodies Not Reportable 05/10/17 05:45 Pelger-Huet Anomaly Not Reportable 05/10/17 05:45 Michael Rods Not Reportable 05/10/17 05:45 Platelet Estimate Appears normal 05/10/17 05:45 Clumped Platelets Not Reportable 05/10/17 05:45 Plt Clumps, EDTA Not Reportable 05/10/17 05:45 Large Platelets Not Reportable 05/10/17 05:45 Giant Platelets Not Reportable 05/10/17 05:45 Platelet Satelliting Not Reportable 05/10/17 05:45 Plt Morphology Comment Not Reportable 05/10/17 05:45 RBC Morphology Not Reportable 05/10/17 05:45 Dimorphic RBCs Not Reportable 05/10/17 05:45 Polychromasia Not Reportable 05/10/17 05:45 Hypochromasia Not Reportable 05/10/17 05:45 Poikilocytosis Not Reportable 05/10/17 05:45 Anisocytosis 1+ 05/10/17 05:45 Microcytosis Not Reportable 05/10/17 05:45 Macrocytosis Not Reportable 05/10/17 05:45 Spherocytes Not Reportable 05/10/17 05:45 Pappenheimer Bodies Not Reportable 05/10/17 05:45 Sickle Cells Not Reportable 05/10/17 05:45 Target Cells Not Reportable 05/10/17 05:45 Tear Drop Cells Not Reportable 05/10/17 05:45 Ovalocytes Not Reportable 05/10/17 05:45 Stomatocytes 2+ 05/10/17 05:45 Helmet Cells Not Reportable 05/10/17 05:45 [place] Bodies Not Reportable 05/10/17 05:45 [place] Rings Not Reportable 05/10/17 05:45 Orange Cells Not Reportable 05/10/17 05:45 Bite Cells Not Reportable 05/10/17 05:45 Crenated Cell Not Reportable 05/10/17 05:45 Elliptocytes Not Reportable 05/10/17 05:45 Acanthocytes (Spur) Not Reportable 05/10/17 05:45 Rouleaux Not Reportable 05/10/17 05:45 Hemoglobin C Crystals Not Reportable 05/10/17 05:45 Schistocytes Not Reportable 05/10/17 05:45 Malaria parasites Not Reportable 05/10/17 05:45 [place] Bodies Not Reportable 05/10/17 05:45 Hem Pathologist Commnt No 05/10/17 05:45 PT 18.9 Sec. (12.2-14.9) H 05/08/17 09:19 INR 1.50 (0.87-1.13) H 05/08/17 09:19 D-Dimer 1367.13 ng/mlDDU (0-234) H 05/08/17 09:19 ABG pH 7.326 pH Units (7.350-7.450) L 05/08/17 10:10 ABG pCO2 49.6 mm Hg 05/08/17 10:10 ABG pO2 75.3 mm Hg (80.0-90.0) L 05/08/17 10:10 ABG HCO3 25.3 mmol/L (20.0-26.0) 05/08/17 10:10 ABG O2 Saturation 95.3 % (95.0-99.0) 05/08/17 10:10 ABG O2 Content 13.8 (0.0-44) 05/08/17 10:10 ABG Base Excess -1.0 mmol/L (-2.0-3.0) 05/08/17 10:10 ABG Hemoglobin 10.5 gm/dl (12.0-16.0) L 05/08/17 10:10 ABG Carboxyhemoglobin 2.2 % (0.0-5.0) 05/08/17 10:10 ABG Methemoglobin 0.4 % (0.0-1.5) 05/08/17 10:10 Oxyhemoglobin 92.8 % (95.0-99.0) L 05/08/17 10:10 FiO2 28 % 05/08/17 10:10 Sodium 140 mmol/L (137-145) 05/10/17 07:45 Potassium 4.0 mmol/L (3.6-5.0) 05/10/17 07:45 Chloride 102.5 mmol/L (98-107) 05/10/17 07:45 Carbon Dioxide 27 mmol/L (22-30) 05/10/17 07:45 Anion Gap 15 mmol/L 05/10/17 07:45 BUN 28 mg/dL (7-17) H 05/10/17 07:45 Creatinine 1.0 mg/dL (0.7-1.2) 05/10/17 07:45 Estimated GFR > 60 ml/min 05/10/17 07:45 BUN/Creatinine Ratio 28 % 05/10/17 07:45 Glucose 117 mg/dL (65-100) H 05/10/17 07:45 POC Glucose 115 (70-105) H 05/11/17 05:38 Lactic Acid 1.30 mmol/L (0.7-2.0) 05/08/17 23:15 Calcium 9.3 mg/dL (8.4-10.2) 05/10/17 07:45 Magnesium 1.90 mg/dL (1.7-2.3) 05/08/17 09:30 Total Bilirubin 0.60 mg/dL (0.1-1.2) 05/08/17 09:19 AST 27 units/L (5-40) 05/08/17 09:19 ALT 82 units/L (7-56) H 05/08/17 09:19 Alkaline Phosphatase 161 units/L (35-129) H 05/08/17 09:19 Troponin T < 0.010 ng/mL (0.00-0.029) 05/08/17 07:46 NT-Pro-B Natriuret Pep 1764 pg/mL (0-900) H 05/08/17 09:30 Total Protein 6.9 g/dL (6.3-8.2) 05/08/17 09:19 Albumin 2.8 g/dL (3.9-5) L 05/08/17 09:19 Albumin/Globulin Ratio 0.7 % 05/08/17 09:19 Urine Color [place] (Yellow) 05/08/17 09:04 Urine Turbidity Clear (Clear) 05/08/17 09:04 Urine pH 5.0 (5.0-7.0) 05/08/17 09:04 Ur Specific [place] 1.015 (1.003-1.030) 05/08/17 09:04 Urine Protein 100 mg/dl mg/dL (Negative) 05/08/17 09:04 Urine Glucose (UA) >=500 mg/dL (Negative) 05/08/17 09:04 Urine Ketones Neg mg/dL (Negative) 05/08/17 09:04 Urine Blood Lg (Negative) 05/08/17 09:04 Urine Nitrite Neg (Negative) 05/08/17 09:04 Urine Bilirubin Neg (Negative) 05/08/17 09:04 Urine Urobilinogen 2.0 mg/dL (<2.0) 05/08/17 09:04 Ur Leukocyte Esterase Mod (Negative) 05/08/17 09:04 Urine WBC (Auto) 166.0 /HPF (0.0-6.0) H 05/08/17 09:04 Urine RBC (Auto) 79.0 /HPF (0.0-6.0) 05/08/17 09:04 U Epithel Cells (Auto) 50.0 /HPF (0-13.0) H 05/08/17 09:04 Urine Bacteria (Auto) 1+ /HPF (Negative) 05/08/17 09:04 Urine WBC Clumps 2+ /HPF 05/08/17 09:04 Ur Transition Epith Cell 2 /HPF 05/08/17 09:04 Urine Mucus Few /HPF 05/08/17 09:04 Blood Type O POSITIVE 05/08/17 19:44 Antibody Screen TNR 05/08/17 19:44 AMMY Antibody Screen Negative 05/08/17 19:44
[2017-05-11] MEDS: BABY ASPIRIN PO SCH (11:33)
[2017-05-11] MEDS: NORVASC PO SCH (11:33)
[2017-05-11] MEDS: PROTONIX PO SCH (11:33)
[2017-05-11] MEDS: K-DUR PO SCH (11:33)
[2017-05-11] MEDS: LASIX IV SCH (11:34)
[2017-05-11] MEDS: LOVENOX SUB-Q SCH (22:17)
[2017-05-12] MEDS: NEURONTIN PO SCH ×3 (05:08→21:28)
[2017-05-12] MEDS: ZOSYN/NS 4.5GM/100ML 4.5 GM/100 ML VIAL IV SCH ×3 (05:39→21:26)
[2017-05-12 07:44] LABS: Hematocrit 33.9 % (30.3-42.9); Hemoglobin 11.8 gm/dl (10.1-14.3); Mean Corpuscular HGB Conc 35 % (30-34); Mean Corpuscular Hemoglobin 32 pg (28-32); Mean Corpuscular Volume 92 fl (79-97); Platelet Count 401 K/mm3 (140-440); Red Blood Count 3.68 M/mm3 (3.65-5.03); Red Cell Distribution Width 13.7 % (13.2-15.2); White Blood Count 14.6 K/mm3 (4.5-11.0)
[2017-05-12 07:45] LABS: BUN/Creatinine Ratio 19; Blood Urea Nitrogen 13 mg/dL (7-17); Carbon Dioxide 32 mmol/L (22-30)
[2017-05-12 07:46] LABS: Anion Gap 14 mmol/L; Calcium 8.9 mg/dL (8.4-10.2); Chloride 98.8 mmol/L (98-107); Glucose 136 mg/dL (65-100); Potassium 3.8 mmol/L (3.6-5.0); Sodium 141 mmol/L (137-145)
[2017-05-12 08:27] LABS: Basophils % (Manual) 0 % (0.0-1.8); Blastocytes % (Manual) 0 %; Burr Cells Rare; Diff Status Complete; Polychromasia Few; Stomatocytes 3+
--- NOTE | 2017-05-12 09:57 | Progress Note ---
Assessment and Plan Assessment and plan: Sepsis 2/2 UTI - Patient is being managed according to sepsis protocol -Urine and blood cultures are negative Acute CVA - CT head positive for right sided infarct - Echocardiogram revealed EF 55-60% with diastolic dysfunction. No report of embolic source. Carotid Doppler ultrasound negative with less than 50% stenosis bilaterally. -MRI negative. DEONTE - CT chest negative - Advised weight loss - Sleep study as an outpatient. Acute diastolic heart failure. - Continue Lasix IV daily for now. Pulmonary hypertension. -Medical management Acute hypoxic respiratory failure. -Etiology secondary to DEONTE/OHS, pulmonary hypertension and acute diastolic heart failure. -Initial evaluation with walk tests revealed the patient does need home O2. However, patient reports that she is unable to afford it. DM with hyperglycemia - On SSI and basal insulin DVT - lovenox Disposition - continue inpatient care, case management aware of oxygen requirements and is attempting to arrange for outpatient O2. History Interval history: No new issues overnight. Hospitalist Physical - Constitutional Vitals: Temp Pulse Resp BP Pulse Ox 99.4 F 95 H 20 155/85 97 05/11/17 21:45 05/11/17 21:45 05/12/17 05:09 05/11/17 21:45 05/12/17 05:09 General appearance: Present: no acute distress - EENT Eyes: Present: PERRL, EOM intact ENT: hearing intact, clear oral mucosa, dentition normal - Neck Neck: Present: supple, normal ROM - Respiratory Respiratory effort: normal Respiratory: bilateral: CTA - Cardiovascular Rhythm: regular Heart Sounds: Present: S1 & S2. Absent: gallop, rub - Extremities Extremities: no ischemia, No edema, Full ROM - Abdominal General gastrointestinal: soft, non-tender, non-distended, normal bowel sounds - Integumentary Integumentary: Present: clear, warm, dry - Neurologic Neurologic: CNII-XII intact, moves all extremities Results - Labs CBC & Chem 7: 05/12/17 07:15 05/12/17 07:15 Labs: Laboratory Last Values WBC 14.6 K/mm3 (4.5-11.0) H 05/12/17 07:15 RBC 3.68 M/mm3 (3.65-5.03) 05/12/17 07:15 Hgb 11.8 gm/dl (10.1-14.3) 05/12/17 07:15 Hct 33.9 % (30.3-42.9) 05/12/17 07:15 MCV 92 fl (79-97) 05/12/17 07:15 MCH 32 pg (28-32) 05/12/17 07:15 MCHC 35 % (30-34) H 05/12/17 07:15 RDW 13.7 % (13.2-15.2) 05/12/17 07:15 Plt Count 401 K/mm3 (140-440) 05/12/17 07:15 Add Manual Diff Complete 05/12/17 07:15 Total Counted 100 05/12/17 07:15 Seg Neutrophils % Vegetable Farmer 05/09/17 07:03 Seg Neuts % (Manual) 69.0 % (40.0-70.0) 05/12/17 07:15 Band Neutrophils % 0 % 05/12/17 07:15 Lymphocytes % (Manual) 21.0 % (13.4-35.0) 05/12/17 07:15 Reactive Lymphs % (Man) 0 % 05/12/17 07:15 Monocytes % (Manual) 6.0 % (0.0-7.3) 05/12/17 07:15 Eosinophils % (Manual) 4.0 % (0.0-4.3) 05/12/17 07:15 Basophils % (Manual) 0 % (0.0-1.8) 05/12/17 07:15 Metamyelocytes % 0 % 05/12/17 07:15 Myelocytes % 0 % 05/12/17 07:15 Promyelocytes % 0 % 05/12/17 07:15 Blast Cells % 0 % 05/12/17 07:15 Nucleated RBC % Not Reportable 05/12/17 07:15 Seg Neutrophils # Man 10.1 K/mm3 (1.8-7.7) H 05/12/17 07:15 Band Neutrophils # 0.0 K/mm3 05/12/17 07:15 Lymphocytes # (Manual) 3.1 K/mm3 (1.2-5.4) 05/12/17 07:15 Abs React Lymphs (Man) 0.0 K/mm3 05/12/17 07:15 Monocytes # (Manual) 0.9 K/mm3 (0.0-0.8) H 05/12/17 07:15 Eosinophils # (Manual) 0.6 K/mm3 (0.0-0.4) H 05/12/17 07:15 Basophils # (Manual) 0.0 K/mm3 (0.0-0.1) 05/12/17 07:15 Metamyelocytes # 0.0 K/mm3 05/12/17 07:15 Myelocytes # 0.0 K/mm3 05/12/17 07:15 Promyelocytes # 0.0 K/mm3 05/12/17 07:15 Blast Cells # 0.0 K/mm3 05/12/17 07:15 WBC Morphology Not Reportable 05/12/17 07:15 Hypersegmented Neuts Not Reportable 05/12/17 07:15 Hyposegmented Neuts Not Reportable 05/12/17 07:15 Hypogranular Neuts Not Reportable 05/12/17 07:15 Smudge Cells Not Reportable 05/12/17 07:15 Toxic Granulation Not Reportable 05/12/17 07:15 Toxic Vacuolation Not Reportable 05/12/17 07:15 Dohle Bodies Not Reportable 05/12/17 07:15 Pelger-Huet Anomaly Not Reportable 05/12/17 07:15 Michael Rods Not Reportable 05/12/17 07:15 Platelet Estimate Appears normal 05/12/17 07:15 Clumped Platelets Not Reportable 05/12/17 07:15 Plt Clumps, EDTA Not Reportable 05/12/17 07:15 Large Platelets Not Reportable 05/12/17 07:15 Giant Platelets Not Reportable 05/12/17 07:15 Platelet Satelliting Not Reportable 05/12/17 07:15 Plt Morphology Comment Not Reportable 05/12/17 07:15 RBC Morphology Not Reportable 05/12/17 07:15 Dimorphic RBCs Not Reportable 05/12/17 07:15 Polychromasia Few 05/12/17 07:15 Hypochromasia Not Reportable 05/12/17 07:15 Poikilocytosis Not Reportable 05/12/17 07:15 Anisocytosis Not Reportable 05/12/17 07:15 Microcytosis Not Reportable 05/12/17 07:15 Macrocytosis Not Reportable 05/12/17 07:15 Spherocytes Not Reportable 05/12/17 07:15 Pappenheimer Bodies Not Reportable 05/12/17 07:15 Sickle Cells Not Reportable 05/12/17 07:15 Target Cells Not Reportable 05/12/17 07:15 Tear Drop Cells Not Reportable 05/12/17 07:15 Ovalocytes Not Reportable 05/12/17 07:15 Stomatocytes 3+ 05/12/17 07:15 Helmet Cells Not Reportable 05/12/17 07:15 [place] Bodies Not Reportable 05/12/17 07:15 [place] Rings Not Reportable 05/12/17 07:15 Madeleine Cells Rare 05/12/17 07:15 Bite Cells Not Reportable 05/12/17 07:15 Crenated Cell Not Reportable 05/12/17 07:15 Elliptocytes Not Reportable 05/12/17 07:15 Acanthocytes (Spur) Not Reportable 05/12/17 07:15 Rouleaux Not Reportable 05/12/17 07:15 Hemoglobin C Crystals Not Reportable 05/12/17 07:15 Schistocytes Not Reportable 05/12/17 07:15 Malaria parasites Not Reportable 05/12/17 07:15 [place] Bodies Not Reportable 05/12/17 07:15 Hem Pathologist Commnt No 05/12/17 07:15 PT 18.9 Sec. (12.2-14.9) H 05/08/17 09:19 INR 1.50 (0.87-1.13) H 05/08/17 09:19 D-Dimer 1367.13 ng/mlDDU (0-234) H 05/08/17 09:19 ABG pH 7.326 pH Units (7.350-7.450) L 05/08/17 10:10 ABG pCO2 49.6 mm Hg 05/08/17 10:10 ABG pO2 75.3 mm Hg (80.0-90.0) L 05/08/17 10:10 ABG HCO3 25.3 mmol/L (20.0-26.0) 05/08/17 10:10 ABG O2 Saturation 95.3 % (95.0-99.0) 05/08/17 10:10 ABG O2 Content 13.8 (0.0-44) 05/08/17 10:10 ABG Base Excess -1.0 mmol/L (-2.0-3.0) 05/08/17 10:10 ABG Hemoglobin 10.5 gm/dl (12.0-16.0) L 05/08/17 10:10 ABG Carboxyhemoglobin 2.2 % (0.0-5.0) 05/08/17 10:10 ABG Methemoglobin 0.4 % (0.0-1.5) 05/08/17 10:10 Oxyhemoglobin 92.8 % (95.0-99.0) L 05/08/17 10:10 FiO2 28 % 05/08/17 10:10 Sodium 141 mmol/L (137-145) 05/12/17 07:15 Potassium 3.8 mmol/L (3.6-5.0) 05/12/17 07:15 Chloride 98.8 mmol/L (98-107) 05/12/17 07:15 Carbon Dioxide 32 mmol/L (22-30) H 05/12/17 07:15 Anion Gap 14 mmol/L 05/12/17 07:15 BUN 13 mg/dL (7-17) 05/12/17 07:15 Creatinine 0.7 mg/dL (0.7-1.2) 05/12/17 07:15 Estimated GFR > 60 ml/min 05/12/17 07:15 BUN/Creatinine Ratio 19 % 05/12/17 07:15 Glucose 136 mg/dL (65-100) H 05/12/17 07:15 POC Glucose 159 (70-105) H 05/12/17 05:43 Lactic Acid 1.30 mmol/L (0.7-2.0) 05/08/17 23:15 Calcium 8.9 mg/dL (8.4-10.2) 05/12/17 07:15 Magnesium 1.90 mg/dL (1.7-2.3) 05/08/17 09:30 Total Bilirubin 0.60 mg/dL (0.1-1.2) 05/08/17 09:19 AST 27 units/L (5-40) 05/08/17 09:19 ALT 82 units/L (7-56) H 05/08/17 09:19 Alkaline Phosphatase 161 units/L (35-129) H 05/08/17 09:19 Troponin T < 0.010 ng/mL (0.00-0.029) 05/08/17 07:46 NT-Pro-B Natriuret Pep 1764 pg/mL (0-900) H 05/08/17 09:30 Total Protein 6.9 g/dL (6.3-8.2) 05/08/17 09:19 Albumin 2.8 g/dL (3.9-5) L 05/08/17 09:19 Albumin/Globulin Ratio 0.7 % 05/08/17 09:19 Urine Color [place] (Yellow) 05/08/17 09:04 Urine Turbidity Clear (Clear) 05/08/17 09:04 Urine pH 5.0 (5.0-7.0) 05/08/17 09:04 Ur Specific [place] 1.015 (1.003-1.030) 05/08/17 09:04 Urine Protein 100 mg/dl mg/dL (Negative) 05/08/17 09:04 Urine Glucose (UA) >=500 mg/dL (Negative) 05/08/17 09:04 Urine Ketones Neg mg/dL (Negative) 05/08/17 09:04 Urine Blood Lg (Negative) 05/08/17 09:04 Urine Nitrite Neg (Negative) 05/08/17 09:04 Urine Bilirubin Neg (Negative) 05/08/17 09:04 Urine Urobilinogen 2.0 mg/dL (<2.0) 05/08/17 09:04 Ur Leukocyte Esterase Mod (Negative) 05/08/17 09:04 Urine WBC (Auto) 166.0 /HPF (0.0-6.0) H 05/08/17 09:04 Urine RBC (Auto) 79.0 /HPF (0.0-6.0) 05/08/17 09:04 U Epithel Cells (Auto) 50.0 /HPF (0-13.0) H 05/08/17 09:04 Urine Bacteria (Auto) 1+ /HPF (Negative) 05/08/17 09:04 Urine WBC Clumps 2+ /HPF 05/08/17 09:04 Ur Transition Epith Cell 2 /HPF 05/08/17 09:04 Urine Mucus Few /HPF 05/08/17 09:04 Blood Type O POSITIVE 05/08/17 19:44 Antibody Screen TNR 05/08/17 19:44 AMMY Antibody Screen Negative 05/08/17 19:44
[2017-05-12] MEDS: NORVASC PO SCH (10:35)
[2017-05-12] MEDS: BABY ASPIRIN PO SCH (10:35)
[2017-05-12] MEDS: PROTONIX PO SCH (10:35)
[2017-05-12] MEDS: K-DUR PO SCH (10:35)
[2017-05-12] MEDS: LASIX IV SCH (10:36)
[2017-05-12] MEDS: TYLENOL PO PRN (21:28)
[2017-05-12] MEDS: LOVENOX SUB-Q SCH (21:30)
[2017-05-13] MEDS: NEURONTIN PO SCH (06:00)
[2017-05-13] MEDS: ZOSYN/NS 4.5GM/100ML 4.5 GM/100 ML VIAL IV SCH (06:00)
--- NOTE | 2017-05-13 08:57 | Discharge Summary ---
Providers - Providers Date of Admission: 05/08/17 12:37 Date of discharge: 05/13/17 Attending physician: KENIA SILVA 05/09/17 09:25 Consult to Dietitian/Nutrition [CONS] Routine Physician Instructions: Reason For Exam: Reason for Consult: Diet education 05/09/17 14:55 Consult to Physician [CONS] Routine Consulting Provider: SHIVANI WRIGHT Reason For Exam: cva Place consult to:: Neurology/DR. WRIGHT Notified:: OFFICE Phone number called:: [phone] Was contact made?: Yes If yes, spoke with:: ROBYN Time called:: 09:10 Comment:: DARREL NOTIFIED 05/09/17 14:56 Physical Therapy Evaluation and Treat [CONS] Routine Comment: Reason For Exam: CVA Primary care physician: RN ED Hospitalization Reason for admission: sob Condition: Serious Hospital course: 52 y/o, morbidly obese female admitted with shortness of breath. ABG done revealed a PaO2 of 75 on 28% (3-4) liters. Patient was admitted for sepsis secondary to urinary source and started on abx therapy. Patient also had complaints of prolonged shortness of breath and difficulty with sleeping. Pulmonary was asked to assess for possible DEONTE. Patient had an echo which showed an RSVP of 30 at rest, EF of 55-60% and impaired relaxation/diastolic dysfunction.. She does smoke the occasional cigarette. Other complications during hospital stay included evaluation for headache with CT scan of the head. CT of the head. It was felt to be positive for right-sided infarct. However , MRI was negative for CVA. Neurology saw the patient in consultation and recommended treatment with high-dose statin and aspirin. Pulmonary recommended Lasix daily for acute diastolic heart failure. Patient has somewhat significant improvement in rest or status, but still with some dyspnea and hypoxia likely related to DEONTE/OHS. Patient will need further follow-up as an outpatient with sleep study and pulmonary. Case management was consulted to potentially arrange home O2, which the patient states that she may not be able to afford but attempts are being made to realize this plan. Dedicated discharge time 32 minutes. Disposition: [id number] TO HOME OR SELFCARE Time spent for discharge: 32 - Discharge Diagnoses (1) Acute diastolic CHF (congestive heart failure) Status: Acute (2) COPD with acute exacerbation Status: Acute (3) Cerebrovascular accident (CVA) Status: Acute Qualifiers: CVA mechanism: C Precerebral and cerebral artery: P Laterality of affected vessel: L (4) Diabetes Status: Acute Qualifiers: Diabetes mellitus type: D Diabetes mellitus complication status: D Diabetes mellitus complication detail: D Diabetic retinopathy severity: D Proliferative retinopathy type: P Diabetes mellitus macular edema: D Diabetes mellitus intermediate project manager insulin use: D Laterality: L Chronic kidney disease stage: C (5) Morbid obesity Status: Acute (6) Sepsis Status: Acute Qualifiers: Sepsis type: Escherichia coli Qualified Code(s): A41.51 - Sepsis due to Escherichia coli [E. coli] (7) UTI (urinary tract infection) Status: Acute Qualifiers: Urinary tract infection type: U Hematuria presence: H Indwelling urinary catheter type: I Encounter type: E Core Measure Documentation - Palliative Care Palliative Care/ Comfort Measures: Not Applicable - Core Measures Any of the following diagnoses?: heart failure, stroke, none - Heart Failure Discharge Requirements LAKESHIA/ARB for LVSD if EF <40%: Yes Beta benita at discharge: Yes Exam - Constitutional Vitals: Temp Pulse Resp BP Pulse Ox 98.7 F 92 H 18 134/59 93 05/13/17 00:10 05/13/17 00:10 05/13/17 00:10 05/13/17 00:10 05/13/17 00:10 General appearance: Present: no acute distress, well-nourished - EENT Eyes: Present: PERRL ENT: hearing intact, clear oral mucosa - Neck Neck: Present: supple, normal ROM - Respiratory Respiratory effort: normal Respiratory: bilateral: CTA - Cardiovascular Heart Sounds: Present: S1 & S2. Absent: rub, click - Extremities Extremities: pulses symmetrical, No edema Peripheral Pulses: within normal limits - Abdominal General gastrointestinal: Present: soft, non-tender, non-distended, normal bowel sounds Female genitourinary: Present: normal - Integumentary Integumentary: Present: clear, warm, dry - Musculoskeletal Musculoskeletal: gait normal, strength equal bilaterally - Psychiatric Psychiatric: appropriate mood/affect, intact judgment & insight - Neurologic Neurologic: CNII-XII intact, moves all extremities Plan Activity: no restrictions Diet: low fat, low cholesterol, low salt, diabetic Durable Medical Equipment Needed Upon Discharge: Oxygen Follow up with: PRIMARY CARE, [Primary Care Provider] - 3-5 Days SE SPAULDING MD [Staff Physician] - 7 Days JALEESA CONWAY MD [Staff Physician] - 7 Days Prescriptions: amLODIPine [Norvasc] 10 mg PO DAILY #30 tab amLODIPine [Norvasc] 5 mg PO DAILY #15 tab Aspirin [Aspirin BABY CHEW TAB] 81 mg PO QDAY #30 tab.chew AtorvaSTATin [Lipitor] 40 mg PO QHS #30 tablet Carvedilol [Coreg] 3.125 mg PO BID #60 tablet Cyclobenzaprine [Flexeril 10 MG TAB] 10 mg PO TID PRN #30 tablet PRN Reason: Muscle Spasm Furosemide [Lasix] 40 mg PO DAILY #30 tablet Gabapentin [Neurontin] 300 mg PO BID #60 capsule Lisinopril [Zestril TAB] 2.5 mg PO QDAY #30 tab metFORMIN [Glucophage] 500 mg PO BID #30 tablet Pantoprazole [Protonix TAB] 40 mg PO QDAY #30 tablet Potassium Chloride [K-Dur] 10 meq PO QDAY #30 tablet
[2017-05-13 09:27] VITALS: BP 128/60
[2017-05-13] MEDS: PROTONIX PO SCH (12:10)
[2017-05-13] MEDS: BABY ASPIRIN PO SCH (12:10)
[2017-05-13] MEDS: K-DUR PO SCH (12:10)
[2017-05-13] MEDS: NORVASC PO SCH (12:10)
[2017-05-13] MEDS: LASIX IV SCH (12:11)
== END 2017-05-13 13:00 | disposition home or self-care (01) | DRG 871 ==
LOC: ED 04:47 → 3A 12:37
PROVIDERS: ADMIT Internal Medicine; ATTEND Hospitalist
PROC: 4A033R1 Measurement of Arterial Saturation, Peripheral, Percutaneous Approach (ICD-10-PCS; principal; 2017-05-09)
DX: A41.9 Sepsis, unspecified organism (principal); I50.31 Acute diastolic (congestive) heart failure; I63.9 Cerebral infarction, unspecified; J96.01 Acute respiratory failure with hypoxia; N39.0 Urinary tract infection, site not specified; E87.1 Hypo-osmolality and hyponatremia; Z68.41 Body mass index [BMI] 40.0-44.9, adult; J44.1 Chronic obstructive pulmonary disease with (acute) exacerbation; E66.01 Morbid (severe) obesity due to excess calories; G47.33 Obstructive sleep apnea (adult) (pediatric); I27.20 Pulmonary hypertension, unspecified; E11.65 Type 2 diabetes mellitus with hyperglycemia; Z72.0 Tobacco use; I11.0 Hypertensive heart disease with heart failure
CPT/HCPCS: 36415; 70450; 70551; 71020; 71260; 80048; 80053; 81001; 82140; 82803; 82962; 83735; 83880; 84484; 85007; 85025; 85379; 85610; 86850; 86900; 86901; 87040; 87086; 93005; 93010; 93306; 93880; 94640; 94760; 96365; 96367; 99285; A9270-GY; J0692; J1650; J1815; J1940; J1956; J2543; J2930; J7030; Q9967

== ENCOUNTER 2017-10-25 17:28 | Emergency (ER) | payer SELFPAY ==
[2017-10-25 18:18] VITALS: BP 169/93
[2017-10-25 19:00] LABS: Basophils # (Auto) 0.1 K/mm3 (0.0-0.1); Eosinophils # (Auto) 0.1 K/mm3 (0.0-0.4); Eosinophils % (Auto) 1.7 % (0.0-4.3); Hematocrit 41.9 % (30.3-42.9); Hemoglobin 13.2 gm/dl (10.1-14.3); Lymphocytes # (Auto) 2.7 K/mm3 (1.2-5.4); Lymphocytes % (Auto) 32.3 % (13.4-35.0); Mean Corpuscular HGB Conc 31 % (30-34); Mean Corpuscular Hemoglobin 30 pg (28-32); Mean Corpuscular Volume 95 fl (79-97); Monocytes # (Auto) 0.5 K/mm3 (0.0-0.8); Monocytes % (Auto) 5.9 % (0.0-7.3); Platelet Count 328 K/mm3 (140-440)
[2017-10-25 19:07] LABS: BUN/Creatinine Ratio 17; Blood Urea Nitrogen 12 mg/dL (7-17); Calcium 8.7 mg/dL (8.4-10.2); Hemolysis Index 5
[2017-10-25 19:58] LABS: Bilirubin,Urine NEG (Negative); Blood,Urine NEG (Negative); Color,Urine Yellow (Yellow); Protein,Urine <15 mg/dL mg/dL (Negative); Urobilinogen,Urine < 2.0 mg/dL (<2.0)
[2017-10-25 20:02] LABS: WBC,Urine < 1.0 /HPF (0.0-6.0)
[2017-10-25] MEDS ORDERED: NACL 0.9% 1000 ML 1,000 ML IV ONE (23:52)
--- NOTE | 2017-10-26 00:29 | Emergency Department Report ---
HPI - General Chief Complaint: Hyperglycemia Time Seen by Provider: 10/25/17 23:50 - HPI HPI: This is a 52-year-old female with a history of diabetes on metformin 2 times a day 500 mg of presents to ED stating that she doesn't feel well it feels like her blood glucose is elevated. Patient states that since Tuesday she is being a little off on her diet eating and drinking a lot of Jori-Aid, SVT, red meat. Patient states she was to taken her metformin twice a day but knows her glucose were elevated. Patient states her usual pace usually around 300s and the little per 300. Patient states the last ointment to her primary care physician was about 2 months ago. She denies nausea or vomiting or abdominal pain, dizziness, headache or any other problems. ED Past Medical Hx - Past Medical History Previous Medical History?: Yes Hx Hypertension: Yes Hx CVA: Yes (Apr 2017, Left side weakness and left ear [place]) Hx Congestive Heart Failure: No Hx Diabetes: Yes Hx Deep Vein Thrombosis: No Hx Arthritis: No Hx Asthma: No Hx COPD: No Additional medical history: neuropathy- takes gabapentin. pancreatitis - Surgical History Past Surgical History?: Yes Hx Cholecystectomy: Yes Additional Surgical History: - Social History Smoking Status: Current Every Day Smoker Substance Use Type: Alcohol - Medications Home Medications: Home Medications Medication Instructions Recorded Confirmed Last Taken Type Naproxen [Naprosyn TAB] 500 mg PO BID PRN #60 tablet 03/19/17 05/08/17 Unknown Rx Aspirin [Aspirin BABY CHEW TAB] 81 mg PO QDAY #30 tab.chew 05/13/17 Unknown Rx AtorvaSTATin [Lipitor] 40 mg PO QHS #30 tablet 05/13/17 Unknown Rx Carvedilol [Coreg] 3.125 mg PO BID #60 tablet 05/13/17 Unknown Rx Cyclobenzaprine [Flexeril 10 MG 10 mg PO TID PRN #30 tablet 05/13/17 Unknown Rx TAB] Furosemide [Lasix] 40 mg PO DAILY #30 tablet 05/13/17 Unknown Rx Gabapentin [Neurontin] 300 mg PO BID #60 capsule 05/13/17 Unknown Rx Lisinopril [Zestril TAB] 2.5 mg PO QDAY #30 tab 05/13/17 Unknown Rx Pantoprazole [Protonix TAB] 40 mg PO QDAY #30 tablet 05/13/17 Unknown Rx Potassium Chloride [K-Dur] 10 meq PO QDAY #30 tablet 05/13/17 Unknown Rx amLODIPine [Norvasc] 5 mg PO DAILY #15 tab 05/13/17 Unknown Rx amLODIPine [Norvasc] 10 mg PO DAILY #30 tab 05/13/17 Unknown Rx metFORMIN [Glucophage] 500 mg PO TID #60 tablet 10/26/17 Unknown Rx ED Review of Systems ROS: Stated complaint: DOESN'T FEEL WELL Other details as noted in HPI Constitutional: denies: chills, fever Eyes: denies: eye pain, eye discharge, vision change ENT: denies: ear pain, throat pain Respiratory: denies: cough, shortness of breath, wheezing Cardiovascular: denies: chest pain, palpitations Endocrine: no symptoms reported Gastrointestinal: denies: abdominal pain, nausea, diarrhea Genitourinary: denies: urgency, dysuria, discharge Musculoskeletal: denies: back pain, joint swelling, arthralgia Skin: denies: rash, lesions Neurological: denies: headache, weakness, paresthesias Psychiatric: denies: anxiety, depression Hematological/Lymphatic: denies: easy bleeding, easy bruising Physical Exam - Physical Exam Vital Signs: Vital Signs 10/25/17 18:10 Temperature 99.1 F Pulse Rate 93 H Respiratory 24 Rate Blood Pressure 169/93 O2 Sat by Pulse 97 Oximetry Physical Exam: GENERAL: Alert and oriented x3, no apparent distress, Normal Gait, atraumatic. HEAD: Head is normocephalic and a-traumatic. EYES: Extra ocular muscles are intact. Pupils are equal, round, and reactive to light and accommodation. NECK: Supple. Non edematous, No lymphadenopathy or thyromegaly. No C-spine tenderness LUNGS: Symetrical with respiration, No wheezing, no rales or crackles, CTAB. HEART: S1, S2 present, regular rate and rhythm without murmur, no rubs, no gallops. Non tender to palpation ABDOMEN: No organomegaly was noted,Positive bowel sounds, soft, and non- distended. . Nontender to palpation on all Quadrants, NO CVA tenderness. EXTREMITIES/MUSCULOSKELETAL: No cyanosis, clubbing, rash, lesions or edema. Full ROM bilaterally. UE Pulses 2+ bilaterally. NEUROLOGIC: The patient is cooperative with no focal neurologic deficits. Normal speech. Normal sensation in bilateral upper and lower extremities, No loss of sensation, SKIN: Warm and dry, No lesions, No ulceration or induration present. ED Course Vital Signs 10/25/17 18:10 Temperature 99.1 F Pulse Rate 93 H Respiratory 24 Rate Blood Pressure 169/93 O2 Sat by Pulse 97 Oximetry ED Medical Decision Making - Lab Data Result diagrams: 10/25/17 18:45 10/25/17 18:45 Laboratory Last Values WBC 8.2 K/mm3 (4.5-11.0) 10/25/17 18:45 RBC 4.40 M/mm3 (3.65-5.03) 10/25/17 18:45 Hgb 13.2 gm/dl (10.1-14.3) 10/25/17 18:45 Hct 41.9 % (30.3-42.9) 10/25/17 18:45 MCV 95 fl (79-97) 10/25/17 18:45 MCH 30 pg (28-32) 10/25/17 18:45 MCHC 31 % (30-34) 10/25/17 18:45 RDW 13.0 % (13.2-15.2) L 10/25/17 18:45 Plt Count 328 K/mm3 (140-440) 10/25/17 18:45 Lymph % (Auto) 32.3 % (13.4-35.0) 10/25/17 18:45 [place] % (Auto) 5.9 % (0.0-7.3) 10/25/17 18:45 Eos % (Auto) 1.7 % (0.0-4.3) 10/25/17 18:45 Baso % (Auto) 1.0 % (0.0-1.8) 10/25/17 18:45 Lymph # 2.7 K/mm3 (1.2-5.4) 10/25/17 18:45 [place] # 0.5 K/mm3 (0.0-0.8) 10/25/17 18:45 Eos # 0.1 K/mm3 (0.0-0.4) 10/25/17 18:45 Baso # 0.1 K/mm3 (0.0-0.1) 10/25/17 18:45 Seg Neutrophils % 59.1 % (40.0-70.0) 10/25/17 18:45 Seg Neutrophils # 4.9 K/mm3 (1.8-7.7) 10/25/17 18:45 VBG pH 7.353 (7.320-7.420) 10/25/17 18:45 Sodium 135 mmol/L (137-145) L 10/25/17 18:45 Potassium 4.3 mmol/L (3.6-5.0) 10/25/17 18:45 Chloride 96.0 mmol/L (98-107) L 10/25/17 18:45 Carbon Dioxide 24 mmol/L (22-30) 10/25/17 18:45 Anion Gap 19 mmol/L 10/25/17 18:45 BUN 12 mg/dL (7-17) 10/25/17 18:45 Creatinine 0.7 mg/dL (0.7-1.2) 10/25/17 18:45 Estimated GFR > 60 ml/min 10/25/17 18:45 BUN/Creatinine Ratio 17 % 10/25/17 18:45 Glucose 441 mg/dL (65-100) H 10/25/17 18:45 POC Glucose 425 (70-105) H 10/25/17 18:24 Calcium 8.7 mg/dL (8.4-10.2) 10/25/17 18:45 Urine Color Yellow (Yellow) 10/25/17 19:37 Urine Turbidity Clear (Clear) 10/25/17 19:37 Urine pH 6.0 (5.0-7.0) 10/25/17 19:37 Ur Specific [place] 1.028 (1.003-1.030) 10/25/17 19:37 Urine Protein <15 mg/dl mg/dL (Negative) 10/25/17 19:37 Urine Glucose (UA) >=500 mg/dL (Negative) 10/25/17 19:37 Urine Ketones Neg mg/dL (Negative) 10/25/17 19:37 Urine Blood Neg (Negative) 10/25/17 19:37 Urine Nitrite Neg (Negative) 10/25/17 19:37 Urine Bilirubin Neg (Negative) 10/25/17 19:37 Urine Urobilinogen < 2.0 mg/dL (<2.0) 10/25/17 19:37 Ur Leukocyte Esterase Neg (Negative) 10/25/17 19:37 Urine WBC (Auto) < 1.0 /HPF (0.0-6.0) 10/25/17 19:37 Urine RBC (Auto) 1.0 /HPF (0.0-6.0) 10/25/17 19:37 U Epithel Cells (Auto) 3.0 /HPF (0-13.0) 10/25/17 19:37 - Medical Decision Making 62-year-old female presents with hyperglycemia CBC, CMP, urinalysis ordered. Patient received 1 L normal saline and 10 units of insulin to reduce glucose level. Due to the labs results, we will replenish fluids and intra-abdominal blood glucose around 300. Signed patient is in no acute distress, no neuro deficits Patient states she has not remembered to primary care doctor in 2-3 weeks. I discussed the patient might need so up her metformin dose it 3 times a day to keep her glucose under control Discussed with patient to avoid high sugar and high carb diet. Patient states she is trying her best and will try not to and states that she has been off the wagon for the past 2-3 days she has not been able to cook. Blood glucose dropped down to 266 prior to discharge. Critical care attestation.: If time is entered above; I have spent that time in minutes in the direct care of this critically ill patient, excluding procedure time. 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 Take all your medications as you've been prescribed. If you have any worsening symptoms or develop new symptoms please return to ED immediately. Prescriptions: metFORMIN [Glucophage] 500 mg PO TID #60 tablet Referrals: AMY REYES MD [Primary Care Provider] - 3-5 Days BERNADINE COHEN MD [Referring] - 3-5 Days Forms: Work/School Release Form(ED)
== END 2017-10-26 02:50 | disposition home or self-care (01) ==
LOC: ED 17:28
DX: E11.65 Type 2 diabetes mellitus with hyperglycemia (principal); F17.200 Nicotine dependence, unspecified, uncomplicated; I10 Essential (primary) hypertension; Z88.6 Allergy status to analgesic agent; Z79.84 Long term (current) use of oral hypoglycemic drugs; Z86.73 Personal history of transient ischemic attack (TIA), and cerebral infarction without residual deficits; Z90.49 Acquired absence of other specified parts of digestive tract
CPT/HCPCS: 36415; 80048; 81001; 82805; 82962; 85025; 96360; 96372; 99284; J7030; J1815

== ENCOUNTER 2018-01-13 10:36 | Outpatient (CLI) | payer MEDICARE ==
[2018-01-13 11:45] LABS: Alanine Aminotransferase 34 units/L (7-56); Albumin 3.7 g/dL (3.9-5); BUN/Creatinine Ratio 22; Blood Urea Nitrogen 13 mg/dL (7-17); Calcium 9.2 mg/dL (8.4-10.2); Hemolysis Index 10
--- NOTE | 2018-01-13 12:45 | Cat Scan Report ---
CT CHEST WITHOUT CONTRAST INDICATION: Pulmonary nodule. COMPARISON: 05/08/[address] FINDINGS: Noncontrast chest CT demonstrates stable, top normal heart size with silhouette slightly exaggerated due to pericardial fat pads. Motion artifact partly limits exam. Assessment of the great vessels and for detecting subtle lymphadenopathy limited due to lack of IV contrast. No aortic aneurysm however. Pulmonary arterial hypertension noted. Patent central airway. Grossly unremarkable thyroid. As on axial series 3, images 36-43, approximately 4 x 1.5 cm right suprahilar hazy infiltrate now noted in the right upper lobe medially. Clear remainder lungs. No effusions. Mild diffuse fatty hepatic infiltration again noted with slight nonspecific left hepatic lobe waviness anteriorly as on axial image 109, series 2, amongst others. Multilevel imaged spinal degenerative changes, including prominent lower thoracic right-sided osteophytes as also lower cervical spurring. CONCLUSION: 1. New small right suprahilar hazy infiltrate on this unenhanced exam, as described. Please note that no focal suspicious lung nodules or mass again identified on CT. 2. Various other incidental findings as pulmonary arterial hypertension, fatty liver and spinal spondylosis, amongst others, as described. Thank you for the opportunity to participate in this patient's care.
== END 2018-01-13 10:37 | disposition home or self-care (01) ==
LOC: CT 10:36
PROVIDERS: ATTEND Internal Medicine
DX: R91.1 Solitary pulmonary nodule (principal); K76.0 Fatty (change of) liver, not elsewhere classified; M47.894 Other spondylosis, thoracic region; M25.78 Osteophyte, vertebrae; F17.210 Nicotine dependence, cigarettes, uncomplicated; I11.0 Hypertensive heart disease with heart failure; I50.31 Acute diastolic (congestive) heart failure; E07.9 Disorder of thyroid, unspecified; Z90.49 Acquired absence of other specified parts of digestive tract; Z82.49 Family history of ischemic heart disease and other diseases of the circulatory system
CPT/HCPCS: 36415; 71250; 80053; 82785; 84436; 84443

== ENCOUNTER 2018-09-12 16:18 | Emergency (ER) | payer MEDICARE ==
--- NOTE | 2018-09-12 16:39 | Emergency Department Report ---
Blank Doc - Documentation Documentation: 53 y/o obese AAF with pmh of DM and HTN presents to ed c/o of coryza for 3-4 w eeks with cough and chest congestion with aches. 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
[2018-09-12 17:48] VITALS: BP 182/108
--- NOTE | 2018-09-12 19:25 | XRay Report ---
FINAL REPORT EXAM: XR CHEST ROUTINE 2V HISTORY: cough TECHNIQUE: Two view chest PA and lateral PRIORS: Comparison is dated May 08, 2017 FINDINGS: Cardiac and mediastinal contours are unremarkable. No focal pulmonary infiltrate is identified. No pleural fluid collection seen. Pulmonary vasculature is unremarkable. Right upper lobe calcified gra nuloma is noted IMPRESSION: Negative two-view chest
--- NOTE | 2018-09-12 20:36 | Emergency Department Report ---
Minor Respiratory - HPI Chief Complaint: Upper Respiratory Infection Stated Complaint: FLU SYMPTOMS Time Seen by Provider: 09/12/18 16:36 Duration: 3 weeks Pain Location: Nose Severity: moderate Minor Respiratory: Yes Rhinorrhea, Yes Able to Tolerate Fluids, Yes Cough, Yes Sick Contacts, Yes Shortness of Breath, Yes Fever, No Sore Throat, No Ear Pain, No Hemoptysis, No Chest Pain Other History: This is a 53-year-old female who presents with cough, congestion, night sweat and shortness of breath for 3 weeks. Patient reports cough is productive with greenish discharge. States cough is worse at night. She is currently sleeping on 3 pillows because she is short of breath. Patient states she is also used an albuterol nebulizer and oxygen which was prescribed by her aircrewman. She has a past medical history of diabetes, hypertension, neuropathy, and CVA. Patient states she is currently taking Nyquil and Mucinex with no improvement of symptoms. She had an appointment with her aircrewman and primary care provider this month but decided to come in. She denies chest pain, nausea or vomiting, myalgias or abdominal pain. ED Review of Systems ROS: Stated complaint: FLU SYMPTOMS Other details as noted in HPI Constitutional: chills, fever ENT: congestion. denies: ear pain, throat pain, dental pain, hearing loss, epistaxis Respiratory: cough. denies: shortness of breath, wheezing Cardiovascular: denies: chest pain, palpitations Gastrointestinal: denies: abdominal pain, nausea, diarrhea Musculoskeletal: myalgia. denies: back pain, joint swelling, arthralgia Skin: denies: rash, lesions Neurological: denies: headache, weakness, paresthesias Psychiatric: denies: anxiety, depression ED Past Medical Hx - Past Medical History Hx Hypertension: Yes Hx CVA: Yes (Apr 2017, Left side weakness and left ear [place]) Hx Congestive Heart Failure: No Hx Diabetes: Yes Hx Deep Vein Thrombosis: No Hx Arthritis: No Hx Asthma: No Hx COPD: No Additional medical history: neuropathy- takes gabapentin, sleep apnea. pancreatitis - Surgical History Hx Cholecystectomy: Yes Additional Surgical History: - Social History Smoking Status: Current Some Day Smoker - Medications Home Medications: Home Medications Medication Instructions Recorded Confirmed Last Taken Type Naproxen [Naprosyn TAB] 500 mg PO BID PRN #60 tablet 03/19/17 05/08/17 Unknown Rx Aspirin [Aspirin BABY CHEW TAB] 81 mg PO QDAY #30 tab.chew 05/13/17 Unknown Rx AtorvaSTATin [Lipitor] 40 mg PO QHS #30 tablet 05/13/17 Unknown Rx Carvedilol [Coreg] 3.125 mg PO BID #60 tablet 05/13/17 Unknown Rx Cyclobenzaprine [Flexeril 10 MG 10 mg PO TID PRN #30 tablet 05/13/17 Unknown Rx TAB] Furosemide [Lasix] 40 mg PO DAILY #30 tablet 05/13/17 Unknown Rx Gabapentin [Neurontin] 300 mg PO BID #60 capsule 05/13/17 Unknown Rx Lisinopril [Zestril TAB] 2.5 mg PO QDAY #30 tab 05/13/17 Unknown Rx Pantoprazole [Protonix TAB] 40 mg PO QDAY #30 tablet 05/13/17 Unknown Rx Potassium Chloride [K-Dur] 10 meq PO QDAY #30 tablet 05/13/17 Unknown Rx amLODIPine [Norvasc] 5 mg PO DAILY #15 tab 05/13/17 Unknown Rx amLODIPine [Norvasc] 10 mg PO DAILY #30 tab 05/13/17 Unknown Rx metFORMIN [Glucophage] 500 mg PO TID #60 tablet 10/26/17 Unknown Rx ALBUTEROL Inhaler (OR & NICU) 1 puff IH Q4-6H PRN #1 inha 09/12/18 Unknown Rx [ProAir HFA Inhaler] Azithromycin [Zithromax] 250 mg PO DAILY #6 tablet 09/12/18 Unknown Rx Benzonatate [Tessalon Perles] 100 mg PO Q8HR PRN #30 capsule 09/12/18 Unknown Rx Fluticasone [Flonase] 1 spray NS QDAY #1 bottle 09/12/18 Unknown Rx Minor Respiratory Exam - Exam General: Vital signs noted. No distress. Alert and acting appropriately. HEENT: Yes Pharyngeal Erythema (erythematous posterior pharynx, uvula midline), Yes Moist Mucous Membranes, Yes Rhinorrhea (turbinates mildly congested with mucoid discharge), No Pharyngeal Exudates, No Conjuctival Injection, No Frontal Tenderness, No Maxillary Tenderness Ear: Neither TM Bulge, Neither TM Erythema, Neither EAC Pain, Neither EAC Discharge Neck: Yes Supple, No Adenopathy Lungs: Yes Good Air Exchange, Yes Cough, No Wheezes, No Ronchi, No Stridor, No Labored Respirations, No Retractions, No Use of Accessory Muscles, No Other Abnormal Lung Sounds Heart: Yes Regular, No Murmur Abdomen: Yes Normal Bowel Sounds, No Tenderness, No Peritoneal Signs Skin: No Rash, No Edema Neurologic: Alert and oriented, no deficits. Musculoskeletal: Unremarkable. ED Course Vital Signs 09/12/18 09/12/18 17:43 19:44 Temperature 100.6 F H 98.2 F Pulse Rate 100 H Respiratory 16 Rate Blood Pressure 182/108 O2 Sat by Pulse 100 Oximetry ED Medical Decision Making - Radiology Data Radiology results: report reviewed FINAL REPORT EXAM: XR CHEST ROUTINE 2V HISTORY: cough TECHNIQUE: Two view chest PA and lateral PRIORS: Comparison is dated May 08, 2017 FINDINGS: Cardiac and mediastinal contours are unremarkable. No focal pulmonary infiltrate is identified. No pleural fluid collection seen. Pulmonary vasculature is unremarkable. Right upper lobe calcified granuloma is noted IMPRESSION: Negative two-view chest - Medical Decision Making 53 y.o. female that presents with flu-like symptoms. Patient examined by me and stable. No distress noted. Vitals normal. Given Tylenol while in the emergency room. Chest x-ray obtained and dictated by radiologist. Chest x-ray no acute cardiopulmonary findings. Physical findings versus bronchitis. Start flonase, Tessalon Perles, and azithromycin. She is instructed to take Tylenol or ibuprofen for aches and pains, to drink a lot of liquids to stay home and rest. She was given a note to return to work in 3 days. Follow up with Primary Care Provider in 2-3 days. She will return to the emergency room if she does not get better as discussed. Critical care attestation.: If time is entered above; I have spent that time in minutes in the direct care of this critically ill patient, excluding procedure time. ED Disposition Clinical Impression: Bronchitis, Cough, Morbid obesity Disposition: DC-01 TO HOME OR SELFCARE Is pt being admited?: No Does the pt Need Aspirin: No Condition: Stable Instructions: Chronic Bronchitis (ED) Additional Instructions: Symptoms are most likely coming from for infection. You may not feel like eating which is to be expected. Try eating a bland diet as tolerated. Wash hands frequently. F/U with Primary Care Provider. Return to ER if fever, SOB, or difficulty breathing after 48 hours of supportive care. Prescriptions: ALBUTEROL Inhaler (OR & NICU) [ProAir HFA Inhaler] 1 puff IH Q4-6H PRN #1 inha PRN Reason: Cough Azithromycin [Zithromax] 250 mg PO DAILY #6 tablet Benzonatate [Tessalon Perles] 100 mg PO Q8HR PRN #30 capsule PRN Reason: Cough Fluticasone [Flonase] 1 spray NS QDAY #1 bottle Referrals: MCKINLEY HUTTON [Primary Care Provider] - 3-[address] [facility] [Outside] - 3-5 Days [facility] [Outside] - 3-5 Days Forms: Work/School Release Form(ED) Time of Disposition: 21:16
[2018-09-12] MEDS ORDERED: TYLENOL PO ONE (21:13)
== END 2018-09-12 21:29 | disposition home or self-care (01) ==
LOC: ED 16:18
DX: J40 Bronchitis, not specified as acute or chronic (principal); E66.01 Morbid (severe) obesity due to excess calories; Z68.42 Body mass index [BMI] 45.0-49.9, adult; I10 Essential (primary) hypertension; E11.40 Type 2 diabetes mellitus with diabetic neuropathy, unspecified; G47.30 Sleep apnea, unspecified; F17.200 Nicotine dependence, unspecified, uncomplicated; M79.10 Myalgia, unspecified site; Z79.82 Long term (current) use of aspirin; Z90.49 Acquired absence of other specified parts of digestive tract; Z88.5 Allergy status to narcotic agent
CPT/HCPCS: 71046; 99283

== ENCOUNTER 2018-12-01 09:43 | Outpatient (CLI) | payer MEDICARE ==
--- NOTE | 2018-12-01 12:33 | Mammography Report ---
Bilateral mammogram: No previous studies available. CAD study utilized. Findings: Predominance adipose tissue bilaterally. Bilateral benign calcifications. Benign axillary nodes. No mass. Impression: Benign findings. Annual followup recommended. BI-RADS CATEGORY: 2 = Benign ACR BI-RADS MAMMOGRAPHIC CODES: 0 = Needs additional imaging evaluation; 1 = Negative; 2 = Benign; 3 = Probably benign; 4 = Suspicious; 5 = Malignant; 6 = Known biopsy-proven malignancy COMMENT: 1. Dense breast tissue, i.e., adenosis, fibrocystic changes, etc., may obscure an underlying neoplasm. 2. Approximately 10% of cancers are not detected with mammography. 3. A negative mammography report should not delay biopsy if a clinically suspicious mass is present. COMMENT: Patient follow-up letters are generated in [employer].
== END 2018-12-01 09:44 | disposition home or self-care (01) ==
LOC: MAMMO 09:43
PROVIDERS: ATTEND Internal Medicine
DX: Z12.31 Encounter for screening mammogram for malignant neoplasm of breast (principal); I10 Essential (primary) hypertension
CPT/HCPCS: 77067

== ENCOUNTER 2019-03-27 17:26 | Emergency (ER) | payer MEDICARE ==
--- NOTE | 2019-03-27 18:17 | Event Note ---
ED Screening Note Date of service: 03/27/19 Time: 18:15 ED Screening Note: 54 y o presents with feeling of fatigue and weakness This initial assessment/diagnostic orders/clinical plan/treatment(s) is/are subject to change based on patients health status, clinical progression and re- assessment by fellow clinical providers in the ED. Further treatment and workup at subsequent clinical providers discretion. Patient/guardian urged not to elope from the ED as their condition may be serious if not clinically assessed and managed. Initial orders include: labs
--- NOTE | 2019-03-27 19:09 | XRay Report ---
CHEST 2 VIEWS INDICATION / CLINICAL INFORMATION: Lightheadedness/Dizziness. COMPARISON: 09/12/2018. FINDINGS: SUPPORT DEVICES: None. HEART / MEDIASTINUM: There is mild cardiomegaly. Pulmonary vasculature is normal. The aorta is normal in caliber. LUNGS / PLEURA: There is a calcified granuloma in the right upper lobe. No acute parenchymal or pleur al abnormality is seen. No pneumothorax. ADDITIONAL FINDINGS: There are moderate hypertrophic changes throughout the thoracic spine. IMPRESSION: No acute findings. Signer Name: Abbe Warren MD Signed: 03/27/2019 7:04 PM Workstation Name: [id number]
[2019-03-27 19:40] LABS: Basophils # (Auto) 0.1 K/mm3 (0.0-0.1); Basophils % (Auto) 1.2 % (0.0-1.8); Eosinophils # (Auto) 0.2 K/mm3 (0.0-0.4); Eosinophils % (Auto) 2.5 % (0.0-4.3); Hematocrit 41.6 % (30.3-42.9); Hemoglobin 13.6 gm/dl (10.1-14.3); Lymphocytes # (Auto) 2.2 K/mm3 (1.2-5.4); Lymphocytes % (Auto) 31.4 % (13.4-35.0); Mean Corpuscular HGB Conc 33 % (30-34); Mean Corpuscular Volume 95 fl (79-97); Monocytes # (Auto) 0.4 K/mm3 (0.0-0.8); Monocytes % (Auto) 6.2 % (0.0-7.3); Platelet Count 338 K/mm3 (140-440); Red Blood Count 4.39 M/mm3 (3.65-5.03); Red Cell Distribution Width 13.4 % (13.2-15.2)
[2019-03-27 19:53] LABS: Creatine Kinase MB 3.3 ng/mL (0.0-4.0)
[2019-03-27 19:58] LABS: Alanine Aminotransferase 43 units/L (7-56); BUN/Creatinine Ratio 22; Blood Urea Nitrogen 13 mg/dL (7-17); Calcium 9.2 mg/dL (8.4-10.2); Hemolysis Index 13
[2019-03-27 21:09] LABS: INR TNR (0.87-1.13)
[2019-03-27 21:15] LABS: INR 1.05 (0.87-1.13)
[2019-03-27 21:38] LABS: Partial Thromboplastin Time 29.9 Sec. (24.2-36.6)
[2019-03-27] MEDS ORDERED: ANTIVERT PO ONE (22:24)
--- NOTE | 2019-03-27 22:45 | Emergency Department Report ---
ED General Adult HPI - General Chief complaint: Dizziness Stated complaint: HBP Time Seen by Provider: 03/27/19 18:13 Source: patient Mode of arrival: Ambulatory Limitations: No Limitations - History of Present Illness Initial comments: The patient presents to the emergency department with a chief complaint of dizziness that has been present for the last 2 weeks. Dizziness is made worse by rapid head movements and resolved with sitting still. Patient denies any chest pain, shortness breath, or headache. -: Sudden Severity scale (0 -10): 0 Consistency: intermittent Improves with: rest Worsens with: movement Associated Symptoms: denies other symptoms Treatments Prior to Arrival: none - Related Data Previous Rx's Medication Instructions Recorded Last Taken Type Naproxen [Naprosyn TAB] 500 mg PO BID PRN #60 tablet 03/19/17 Unknown Rx Aspirin [Aspirin BABY CHEW TAB] 81 mg PO QDAY #30 tab.chew 05/13/17 Unknown Rx AtorvaSTATin [Lipitor] 40 mg PO QHS #30 tablet 05/13/17 Unknown Rx Carvedilol [Coreg] 3.125 mg PO BID #60 tablet 05/13/17 Unknown Rx Cyclobenzaprine [Flexeril 10 MG 10 mg PO TID PRN #30 tablet 05/13/17 Unknown Rx TAB] Furosemide [Lasix] 40 mg PO DAILY #30 tablet 05/13/17 Unknown Rx Gabapentin [Neurontin] 300 mg PO BID #60 capsule 05/13/17 Unknown Rx Lisinopril [Zestril TAB] 2.5 mg PO QDAY #30 tab 05/13/17 Unknown Rx Pantoprazole [Protonix TAB] 40 mg PO QDAY #30 tablet 05/13/17 Unknown Rx Potassium Chloride [K-Dur] 10 meq PO QDAY #30 tablet 05/13/17 Unknown Rx amLODIPine [Norvasc] 5 mg PO DAILY #15 tab 05/13/17 Unknown Rx amLODIPine [Norvasc] 10 mg PO DAILY #30 tab 05/13/17 Unknown Rx metFORMIN [Glucophage] 500 mg PO TID #60 tablet 10/26/17 Unknown Rx ALBUTEROL Inhaler (OR & NICU) 1 puff IH Q4-6H PRN #1 inha 09/12/18 Unknown Rx [ProAir HFA Inhaler] Azithromycin [Zithromax] 250 mg PO DAILY #6 tablet 09/12/18 Unknown Rx Benzonatate [Tessalon Perles] 100 mg PO Q8HR PRN #30 capsule 09/12/18 Unknown Rx Fluticasone [Flonase] 1 spray NS QDAY #1 bottle 09/12/18 Unknown Rx Meclizine [Antivert] 25 mg PO TID PRN #30 tablet 03/28/19 Unknown Rx Allergies Allergy/AdvReac Type Severity Reaction Status Date / Time codeine Allergy Itching Verified 02/05/16 09:46 ED Review of Systems ROS: Stated complaint: HBP Other details as noted in HPI Comment: All other systems reviewed and negative Constitutional: denies: chills, fever Eyes: denies: eye pain, eye discharge, vision change ENT: denies: ear pain, throat pain Respiratory: denies: cough, shortness of breath, wheezing Cardiovascular: denies: chest pain, palpitations Endocrine: no symptoms reported Gastrointestinal: denies: abdominal pain, nausea, diarrhea Genitourinary: denies: urgency, dysuria, discharge Musculoskeletal: denies: back pain, joint swelling, arthralgia Skin: denies: rash, lesions Neurological: denies: headache, weakness, paresthesias Psychiatric: denies: anxiety, depression Hematological/Lymphatic: denies: easy bleeding, easy bruising ED Past Medical Hx - Past Medical History Previous Medical History?: Yes Hx Hypertension: Yes Hx CVA: Yes (Apr 2017, Left side weakness and left ear [id number]) Hx Congestive Heart Failure: No Hx Diabetes: Yes Hx Deep Vein Thrombosis: No Hx Arthritis: No Hx Asthma: No Hx COPD: No Additional medical history: neuropathy- takes gabapentin, sleep apnea. pancreatitis - Surgical History Past Surgical History?: Yes Hx Cholecystectomy: Yes Additional Surgical History: - Social History Smoking Status: Never Smoker Substance Use Type: None - Medications Home Medications: Home Medications Medication Instructions Recorded Confirmed Last Taken Type Naproxen [Naprosyn TAB] 500 mg PO BID PRN #60 tablet 03/19/17 05/08/17 Unknown Rx Aspirin [Aspirin BABY CHEW TAB] 81 mg PO QDAY #30 tab.chew 05/13/17 Unknown Rx AtorvaSTATin [Lipitor] 40 mg PO QHS #30 tablet 05/13/17 Unknown Rx Carvedilol [Coreg] 3.125 mg PO BID #60 tablet 05/13/17 Unknown Rx Cyclobenzaprine [Flexeril 10 MG 10 mg PO TID PRN #30 tablet 05/13/17 Unknown Rx TAB] Furosemide [Lasix] 40 mg PO DAILY #30 tablet 05/13/17 Unknown Rx Gabapentin [Neurontin] 300 mg PO BID #60 capsule 05/13/17 Unknown Rx Lisinopril [Zestril TAB] 2.5 mg PO QDAY #30 tab 05/13/17 Unknown Rx Pantoprazole [Protonix TAB] 40 mg PO QDAY #30 tablet 05/13/17 Unknown Rx Potassium Chloride [K-Dur] 10 meq PO QDAY #30 tablet 05/13/17 Unknown Rx amLODIPine [Norvasc] 5 mg PO DAILY #15 tab 05/13/17 Unknown Rx amLODIPine [Norvasc] 10 mg PO DAILY #30 tab 05/13/17 Unknown Rx metFORMIN [Glucophage] 500 mg PO TID #60 tablet 10/26/17 Unknown Rx ALBUTEROL Inhaler (OR & NICU) 1 puff IH Q4-6H PRN #1 inha 09/12/18 Unknown Rx [ProAir HFA Inhaler] Azithromycin [Zithromax] 250 mg PO DAILY #6 tablet 09/12/18 Unknown Rx Benzonatate [Tessalon Perles] 100 mg PO Q8HR PRN #30 capsule 09/12/18 Unknown Rx Fluticasone [Flonase] 1 spray NS QDAY #1 bottle 09/12/18 Unknown Rx Meclizine [Antivert] 25 mg PO TID PRN #30 tablet 03/28/19 Unknown Rx ED Physical Exam - General Limitations: No Limitations General appearance: alert, in no apparent distress - Head Head exam: Present: atraumatic, normocephalic - Eye Eye exam: Present: normal appearance, PERRL, EOMI - ENT ENT exam: Present: mucous membranes moist - Neck Neck exam: Present: normal inspection - Respiratory Respiratory exam: Present: normal lung sounds bilaterally. Absent: respiratory distress, wheezes, rales - Cardiovascular Cardiovascular Exam: Present: regular rate, normal rhythm. Absent: systolic murmur, diastolic murmur, rubs, gallop - GI/Abdominal GI/Abdominal exam: Present: soft, normal bowel sounds. Absent: distended, tenderness - Extremities Exam Extremities exam: Present: normal inspection - Back Exam Back exam: Present: normal inspection - Neurological Exam Neurological exam: Present: alert, oriented X3, CN II-XII intact, other (able to re-create symptoms with rapid eye movement). Absent: motor sensory deficit - Psychiatric Psychiatric exam: Present: normal affect, normal mood - Skin Skin exam: Present: warm, dry, intact, normal color. Absent: rash ED Course Vital Signs 03/27/19 03/27/19 18:13 20:25 Temperature 98.5 F 98.1 F Pulse Rate 102 H 83 Respiratory 16 12 Rate Blood Pressure 139/66 Blood Pressure 136/64 [Left] O2 Sat by Pulse 93 94 Oximetry ED Medical Decision Making - Lab Data Result diagrams: 03/27/19 18:50 03/27/19 18:50 Lab Results 03/27/19 03/27/19 03/27/19 Range/Units 18:50 18:50 18:50 WBC 7.1 (4.5-11.0) K/mm3 RBC 4.39 (3.65-5.03) M/mm3 Hgb 13.6 (10.1-14.3) gm/dl Hct 41.6 (30.3-42.9) % MCV 95 (79-97) fl MCH 31 (28-32) pg MCHC 33 (30-34) % RDW 13.4 (13.2-15.2) % Plt Count 338 (140-440) K/mm3 Lymph % (Auto) 31.4 (13.4-35.0) % [place] % (Auto) 6.2 (0.0-7.3) % Eos % (Auto) 2.5 (0.0-4.3) % Baso % (Auto) 1.2 (0.0-1.8) % Lymph # 2.2 (1.2-5.4) K/mm3 [place] # 0.4 (0.0-0.8) K/mm3 Eos # 0.2 (0.0-0.4) K/mm3 Baso # 0.1 (0.0-0.1) K/mm3 Seg Neutrophils % 58.7 (40.0-70.0) % Seg Neutrophils # 4.2 (1.8-7.7) K/mm3 PT TNR INR TNR APTT (24.2-36.6) Sec. Sodium 139 (137-145) mmol/L Potassium 4.1 (3.6-5.0) mmol/L Chloride 100.1 (98-107) mmol/L Carbon Dioxide 27 (22-30) mmol/L Anion Gap 16 mmol/L BUN 13 (7-17) mg/dL Creatinine 0.6 L (0.7-1.2) mg/dL Estimated GFR > 60 ml/min BUN/Creatinine Ratio 22 % Glucose 276 H (65-100) mg/dL Calcium 9.2 (8.4-10.2) mg/dL Total Bilirubin 0.20 (0.1-1.2) mg/dL AST 25 (5-40) units/L ALT 43 (7-56) units/L Alkaline Phosphatase 93 (35-129) units/L Total Creatine Kinase 155 H (30-135) units/L CK-MB (CK-2) 3.3 (0.0-4.0) ng/mL CK-MB (CK-2) Rel Index 2.1 (0-4) Total Protein 7.6 (6.3-8.2) g/dL Albumin 4.0 (3.9-5) g/dL Albumin/Globulin Ratio 1.1 % 03/27/19 Range/Units 21:00 WBC (4.5-11.0) K/mm3 RBC (3.65-5.03) M/mm3 Hgb (10.1-14.3) gm/dl Hct (30.3-42.9) % MCV (79-97) fl MCH (28-32) pg MCHC (30-34) % RDW (13.2-15.2) % Plt Count (140-440) K/mm3 Lymph % (Auto) (13.4-35.0) % [place] % (Auto) (0.0-7.3) % Eos % (Auto) (0.0-4.3) % Baso % (Auto) (0.0-1.8) % Lymph # (1.2-5.4) K/mm3 [place] # (0.0-0.8) K/mm3 Eos # (0.0-0.4) K/mm3 Baso # (0.0-0.1) K/mm3 Seg Neutrophils % (40.0-70.0) % Seg Neutrophils # (1.8-7.7) K/mm3 PT 13.4 INR 1.05 APTT 29.9 (24.2-36.6) Sec. Sodium (137-145) mmol/L Potassium (3.6-5.0) mmol/L Chloride (98-107) mmol/L Carbon Dioxide (22-30) mmol/L Anion Gap mmol/L BUN (7-17) mg/dL Creatinine (0.7-1.2) mg/dL Estimated GFR ml/min BUN/Creatinine Ratio % Glucose (65-100) mg/dL Calcium (8.4-10.2) mg/dL Total Bilirubin (0.1-1.2) mg/dL AST (5-40) units/L ALT (7-56) units/L Alkaline Phosphatase (35-129) units/L Total Creatine Kinase (30-135) units/L CK-MB (CK-2) (0.0-4.0) ng/mL CK-MB (CK-2) Rel Index (0-4) Total Protein (6.3-8.2) g/dL Albumin (3.9-5) g/dL Albumin/Globulin Ratio % - Radiology Data Radiology results: report reviewed - Medical Decision Making Discussed results with patient Critical care attestation.: If time is entered above; I have spent that time in minutes in the direct care of this critically ill patient, excluding procedure time. ED Disposition Clinical Impression: Vertigo Disposition: DC-01 TO HOME OR SELFCARE Is pt being admited?: No Does the pt Need Aspirin: No Condition: Stable Instructions: Vertigo (ED) Additional Instructions: return if worse Referrals: PRIMARY CARE, [Primary Care Provider] - 3-5 Days [facility] [Provider Group] - 3-5 Days [facility] [Provider Group] - 3-5 Days Time of Disposition: 00:21
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
[2019-03-28 01:12] VITALS: BP 122/69
== END 2019-03-28 01:00 | disposition home or self-care (01) ==
LOC: ED 17:26
DX: R42 Dizziness and giddiness (principal); I10 Essential (primary) hypertension; E11.40 Type 2 diabetes mellitus with diabetic neuropathy, unspecified; Z86.73 Personal history of transient ischemic attack (TIA), and cerebral infarction without residual deficits; Z90.49 Acquired absence of other specified parts of digestive tract; Z79.4 Long term (current) use of insulin; Z98.890 Other specified postprocedural states; Z79.899 Other long term (current) drug therapy; Z88.6 Allergy status to analgesic agent; Z79.82 Long term (current) use of aspirin
CPT/HCPCS: 36415; 70450; 71046; 80053; 82550; 82553; 85025; 85610; 85730; 99284

== ENCOUNTER 2019-12-03 11:18 | Outpatient (CLI) | payer MEDICARE ==
--- NOTE | 2019-12-03 17:13 | Mammography Report ---
DIGITAL SCREENING MAMMOGRAM WITH CAD, 12/03/2019 INDICATION: Routine screening mammography. TECHNIQUE: Digital bilateral 2D mammography was obtained in the craniocaudal and mediolateral obliq ue projections. This examination was interpreted with the benefit of Computer-Aided Detection analysi s. COMPARISON: 12/01/2018 FINDINGS: Breast Density: The breasts are almost entirely fatty. There is no evidence of dominant mass, suspicious calcifications or architectural distortion in eithe r breast. IMPRESSION: Follow up recommendation: Routine yearly BI-RADS Category 1: Negative. A "normal" or negative report should not discourage follow up or biopsy of a clinically significant f inding. A written summary of these findings will be mailed to the patient. The patient will be entered into a mammography reporting system which will generate a reminder letter for the patient's next appointmen t at the appropriate interval. The [employer] recommends yearly mammograms starting at age 40 and continuing as l renae as a woman is in good health. Breast MRI is recommended for women with an approximate 20-25% or greater lifetime risk of breast cancer, including women with a strong family history of breast or ova nanette cancer or who have been treated for Hodgkin's disease. Signer Name: Tomeka Evans MD Signed: 12/03/2019 5:09 PM Workstation Name: [id number]
== END 2019-12-03 11:19 | disposition home or self-care (01) ==
LOC: MAMMO 11:18
PROVIDERS: ATTEND Internal Medicine
DX: Z12.31 Encounter for screening mammogram for malignant neoplasm of breast (principal); N64.89 Other specified disorders of breast
CPT/HCPCS: 77067

== ENCOUNTER 2020-01-23 10:13 | Inpatient (IN) | payer MEDICARE ==
--- NOTE | 2020-01-23 11:01 | Emergency Department Report ---
ED Shortness of Breath HPI - General Chief Complaint: Dyspnea/Respdistress Stated Complaint: FLU SYM/CHEST PAIN Time Seen by Provider: 01/23/20 10:30 Source: patient Mode of arrival: Wheelchair Limitations: No Limitations - History of Present Illness Initial Comments: 54-year-old female with history of hypertension, diabetes, COPD (not on home O2), chronic back pain, presents to ED with shortness of breath x3 days. Patient also reports associated chills, body aches, productive cough, nausea. Patient denies diarrhea. 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 Pt not on home O2, states she has a machine at home that she uses to breathe. I suspect she is possibly referring to a CPAP machine. MD Complaint: shortness of breath -: days(s) (3) Severity: moderate Improves With: rest Worsens With: exertion Known History Of: COPD Associated Symptoms: cough, nausea/vomiting Treatments Prior to Arrival: none - Related Data Home Oxygen Therapy: No Previous Rx's Medication Instructions Recorded Last Taken Type Naproxen [Naprosyn TAB] 500 mg PO BID PRN #60 tablet 03/19/17 Unknown Rx Aspirin [Aspirin BABY CHEW TAB] 81 mg PO QDAY #30 tab.chew 05/13/17 Unknown Rx AtorvaSTATin [Lipitor] 40 mg PO QHS #30 tablet 05/13/17 Unknown Rx Cyclobenzaprine [Flexeril 10 MG 10 mg PO TID PRN #30 tablet 05/13/17 Unknown Rx TAB] Furosemide [Lasix] 40 mg PO DAILY #30 tablet 05/13/17 Unknown Rx Gabapentin 300 mg PO BID #60 capsule 05/13/17 Unknown Rx Lisinopril [Zestril TAB] 2.5 mg PO QDAY #30 tab 05/13/17 Unknown Rx Pantoprazole [Protonix TAB] 40 mg PO QDAY #30 tablet 05/13/17 Unknown Rx Potassium Chloride [K-Dur] 10 meq PO QDAY #30 tablet 05/13/17 Unknown Rx amLODIPine 5 mg PO DAILY #15 tab 05/13/17 Unknown Rx amLODIPine 10 mg PO DAILY #30 tab 05/13/17 Unknown Rx carvediloL [Coreg] 3.125 mg PO BID #60 tablet 05/13/17 Unknown Rx metFORMIN [Glucophage] 500 mg PO TID #60 tablet 10/26/17 Unknown Rx Albuterol INH(or & Nicu Only) 1 puff IH Q4-6H PRN #1 inha 09/12/18 Unknown Rx [ProAir HFA Inhaler] Azithromycin [Zithromax] 250 mg PO DAILY #6 tablet 09/12/18 Unknown Rx Benzonatate [Tessalon Perles] 100 mg PO Q8HR PRN #30 capsule 09/12/18 Unknown Rx Fluticasone [Flonase] 1 spray NS QDAY #1 bottle 09/12/18 Unknown Rx Ibuprofen [Motrin] 800 mg PO Q8HR PRN #30 tablet 03/28/19 Unknown Rx Meclizine [Antivert] 25 mg PO TID PRN #30 tablet 03/28/19 Unknown Rx Allergies Allergy/AdvReac Type Severity Reaction Status Date / Time codeine Allergy Itching Verified 02/05/16 09:46 ED Review of Systems ROS: Stated complaint: FLU SYM/CHEST PAIN Other details as noted in HPI Comment: All other systems reviewed and negative Constitutional: chills Respiratory: cough, shortness of breath Cardiovascular: denies: chest pain Gastrointestinal: nausea. denies: vomiting, diarrhea Musculoskeletal: myalgia ED Past Medical Hx - Past Medical History Previous Medical History?: Yes Hx Hypertension: Yes Hx CVA: Yes (Apr 2017, Left side weakness and left ear HUGHES) Hx Congestive Heart Failure: No Hx Diabetes: Yes Hx Deep Vein Thrombosis: No Hx Arthritis: No Hx Asthma: No Hx COPD: Yes Additional medical history: neuropathy- takes gabapentin, sleep apnea. pancreatitis - Surgical History Hx Cholecystectomy: Yes Additional Surgical History: - Social History Smoking Status: Current Some Day Smoker Substance Use Type: None - Medications Home Medications: Home Medications Medication Instructions Recorded Confirmed Last Taken Type Naproxen [Naprosyn TAB] 500 mg PO BID PRN #60 tablet 03/19/17 05/08/17 Unknown Rx Aspirin [Aspirin BABY CHEW TAB] 81 mg PO QDAY #30 tab.chew 05/13/17 Unknown Rx AtorvaSTATin [Lipitor] 40 mg PO QHS #30 tablet 05/13/17 Unknown Rx Cyclobenzaprine [Flexeril 10 MG 10 mg PO TID PRN #30 tablet 05/13/17 Unknown Rx TAB] Furosemide [Lasix] 40 mg PO DAILY #30 tablet 05/13/17 Unknown Rx Gabapentin 300 mg PO BID #60 capsule 05/13/17 Unknown Rx Lisinopril [Zestril TAB] 2.5 mg PO QDAY #30 tab 05/13/17 Unknown Rx Pantoprazole [Protonix TAB] 40 mg PO QDAY #30 tablet 05/13/17 Unknown Rx Potassium Chloride [K-Dur] 10 meq PO QDAY #30 tablet 05/13/17 Unknown Rx amLODIPine 5 mg PO DAILY #15 tab 05/13/17 Unknown Rx amLODIPine 10 mg PO DAILY #30 tab 05/13/17 Unknown Rx carvediloL [Coreg] 3.125 mg PO BID #60 tablet 05/13/17 Unknown Rx metFORMIN [Glucophage] 500 mg PO TID #60 tablet 10/26/17 Unknown Rx Albuterol INH(or & Nicu Only) 1 puff IH Q4-6H PRN #1 inha 09/12/18 Unknown Rx [ProAir HFA Inhaler] Azithromycin [Zithromax] 250 mg PO DAILY #6 tablet 09/12/18 Unknown Rx Benzonatate [Tessalon Perles] 100 mg PO Q8HR PRN #30 capsule 09/12/18 Unknown Rx Fluticasone [Flonase] 1 spray NS QDAY #1 bottle 09/12/18 Unknown Rx Ibuprofen [Motrin] 800 mg PO Q8HR PRN #30 tablet 03/28/19 Unknown Rx Meclizine [Antivert] 25 mg PO TID PRN #30 tablet 03/28/19 Unknown Rx ED Physical Exam - General Limitations: No Limitations General appearance: alert, in no apparent distress, obese - Head Head exam: Present: atraumatic, normocephalic - Eye Eye exam: Present: normal appearance, EOMI - ENT ENT exam: Present: mucous membranes moist - Neck Neck exam: Present: normal inspection - Respiratory Respiratory exam: Present: decreased breath sounds - Cardiovascular Cardiovascular Exam: Present: normal rhythm, tachycardia - GI/Abdominal GI/Abdominal exam: Present: soft. Absent: distended, tenderness - Extremities Exam Extremities exam: Present: normal inspection - Neurological Exam Neurological exam: Present: alert, oriented X3 - Psychiatric Psychiatric exam: Present: normal affect, normal mood - Skin Skin exam: Present: warm, dry, intact, normal color ED Course Vital Signs 01/23/20 01/23/20 01/23/20 10:20 11:16 11:30 Temperature 100.9 F H Pulse Rate 107 H 104 H 103 H Respiratory 26 H 31 H 17 Rate Blood Pressure 144/87 132/65 132/65 Blood Pressure [Left] O2 Sat by Pulse 84 97 99 Oximetry 01/23/20 01/23/20 01/23/20 11:42 11:46 11:47 Temperature 100.3 F H 100.3 F H Pulse Rate 104 H 101 H 100 H Respiratory 18 28 H 18 Rate Blood Pressure 132/65 Blood Pressure 134/72 [Left] O2 Sat by Pulse 94 97 94 Oximetry 01/23/20 01/23/20 01/23/20 12:00 12:16 12:30 Temperature Pulse Rate 103 H 102 H 102 H Respiratory 28 H 25 H 26 H Rate Blood Pressure 132/65 132/65 160/86 Blood Pressure [Left] O2 Sat by Pulse 98 97 93 Oximetry 01/23/20 01/23/20 01/23/20 12:46 13:00 13:16 Temperature Pulse Rate 104 H 108 H 101 H Respiratory 18 36 H 11 L Rate Blood Pressure 160/86 160/86 116/91 Blood Pressure [Left] O2 Sat by Pulse 99 94 94 Oximetry 01/23/20 01/23/20 01/23/20 13:30 13:46 14:00 Temperature Pulse Rate 116 H Respiratory 25 H Rate Blood Pressure 116/91 116/91 116/91 Blood Pressure [Left] O2 Sat by Pulse 92 94 92 Oximetry 01/23/20 01/23/20 14:16 14:30 Temperature Pulse Rate 102 H Respiratory 22 Rate Blood Pressure 116/91 135/82 Blood Pressure [Left] O2 Sat by Pulse 93 94 Oximetry ED Medical Decision Making - Lab Data Result diagrams: 01/23/20 11:53 01/23/20 11:53 - EKG Data -: EKG Interpreted by Me EKG shows normal: sinus rhythm, axis, intervals, QRS complexes Rate: normal - EKG Data Interpretation: nonspecific ST-T wave chanell - Radiology Data Radiology results: report reviewed, image reviewed - Medical Decision Making 54 yo F w/ fever, hypoxia and symptoms suspicious for COVID-19. Has hx of COPD, however, pt not on home O2. Initial O2 sats 84% RA. Improved w/ 2L O2 via NC. CXR negative for any acute findings. COVID testing ordered. Will admit to hospitalist for further management. - Differential Diagnosis COPD, COVID-19, pneumonia Critical Care Time: Yes Critical care time in (mins) excluding proc time.: 35 Critical care attestation.: If time is entered above; I have spent that time in minutes in the direct care of this critically ill patient, excluding procedure time. Critical Care Time: 35 min ED Disposition Clinical Impression: Suspected 2019 novel coronavirus infection, Hypoxia Disposition: OP ADMIT IP TO THIS HOSP Is pt being admited?: Yes Condition: Stable Referrals: PRIMARY CARE, [Primary Care Provider] - 3-5 Days Time of Disposition: 13:00
[2020-01-23] MEDS ORDERED: ACETAMINOPHEN 500 MG TAB PO ONE (11:45)
[2020-01-23 12:02] LABS: Basophils # (Auto) 0.2 K/mm3 (0.0-0.1); Basophils % (Auto) 2.6 % (0.0-1.8); Eosinophils # (Auto) 0.1 K/mm3 (0.0-0.4); Eosinophils % (Auto) 1.2 % (0.0-4.3); Hematocrit 41.4 % (30.3-42.9); Hemoglobin 13.4 gm/dl (10.1-14.3); Lymphocytes # (Auto) 1.5 K/mm3 (1.2-5.4); Lymphocytes % (Auto) 23.8 % (13.4-35.0); Mean Corpuscular HGB Conc 32 % (30-34); Mean Corpuscular Volume 94 fl (79-97); Monocytes # (Auto) 0.7 K/mm3 (0.0-0.8); Monocytes % (Auto) 11.1 % (0.0-7.3); Platelet Count 338 K/mm3 (140-440); Red Blood Count 4.39 M/mm3 (3.65-5.03)
--- NOTE | 2020-01-23 12:07 | XRay Report ---
CHEST 1 VIEW 01/23/2020 11:05 AM INDICATION / CLINICAL INFORMATION: Shortness of breath. COMPARISON: Chest x-ray on 03/27/2019 FINDINGS: SUPPORT DEVICES: None. HEART / MEDIASTINUM: No significant abnormality. LUNGS / PLEURA: No significant pulmonary or pleural abnormality. No pneumothorax. ADDITIONAL FINDINGS: No significant additional findings. IMPRESSION: 1. No acute findings. Signer Name: Manuel Wilkes MD Signed: 01/23/2020 12:03 PM Workstation Name: [id number]
[2020-01-23 12:29] LABS: BUN/Creatinine Ratio 13; Blood Urea Nitrogen 8 mg/dL (7-17); Calcium 8.6 mg/dL (8.4-10.2); Hemolysis Index 32
[2020-01-23 12:31] LABS: C-Reactive Protein 3.8 mg/dL (0.00-1.30)
--- NOTE | 2020-01-23 13:07 | History and Physical Report ---
History of Present Illness Date of examination: 01/23/20 Date of admission: 01/23/20 Chief complaint: SOB and cough History of present illness: 54-year-old female with history of hypertension, diabetes, COPD (not on home O2), chronic back pain, presents to ED with shortness of breath x3 days. Patient also reports associated chills, body aches, productive cough, nausea. Patient denies diarrhea. 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 Her CXR in the ER showed no infiltrates. Patient being admitted for suspected COVID 19. Past History Past Medical History: diabetes, COPD, hypertension, other (Morbid Obesity) Past Surgical History: cholecystectomy, Social history: . denies: smoking, alcohol abuse, prescription drug abuse Family history: diabetes, hypertension Review of System: Constitutional: + fever, no chills, no weight loss Ears, eyes, nose, mouth and throat: no nasal congestion, no nasal discharge, no sinus pressure, no vision change, no red eye. Neck: No neck pain or rigidity. Cardiovascular: No chest pain, no orthopnea, no palpitations, no leg swelling Respiratory: +shortness of breath, + cough, no congestion, no wheezing Gastrointestinal: no abdominal pain, no nausea, no vomiting Genitourinary : no dysuria, no hematuria Musculoskeletal: no joint swelling or muscle ache Integumentary: no rash, no pruritis Neurological: no parathesias, no numbness, no tingling Endocrine: no cold or heat intolerance, no polyuria or polydipsia Hematologic/Lymphatic: no easy bruising, no easy bleeding, no gland swelling Allergic/Immunologic: no urticaria, no angioedema. Medications and Allergies Allergies Allergy/AdvReac Type Severity Reaction Status Date / Time codeine Allergy Itching Verified 02/05/16 09:46 Home Medications Medication Instructions Recorded Confirmed Last Taken Type Naproxen [Naprosyn TAB] 500 mg PO BID PRN #60 tablet 03/19/17 01/24/20 01/23/20 Rx Aspirin [Aspirin BABY CHEW TAB] 81 mg PO QDAY #30 tab.chew 05/13/17 01/24/20 01/23/20 Rx AtorvaSTATin [Lipitor] 40 mg PO QHS #30 tablet 05/13/17 01/24/20 01/23/20 Rx Cyclobenzaprine [Flexeril 10 MG 10 mg PO TID PRN #30 tablet 05/13/17 01/24/20 01/23/20 Rx TAB] Furosemide [Lasix] 40 mg PO DAILY #30 tablet 05/13/17 01/24/20 01/23/20 Rx Gabapentin 300 mg PO BID #60 capsule 05/13/17 01/24/20 01/23/20 Rx Lisinopril [Zestril TAB] 2.5 mg PO QDAY #30 tab 05/13/17 01/24/20 01/23/20 Rx Pantoprazole [Protonix TAB] 40 mg PO QDAY #30 tablet 05/13/17 01/24/20 01/23/20 Rx Potassium Chloride [K-Dur] 10 meq PO QDAY #30 tablet 05/13/17 01/24/20 01/23/20 Rx amLODIPine 5 mg PO DAILY #15 tab 05/13/17 01/24/20 01/23/20 Rx amLODIPine 10 mg PO DAILY #30 tab 05/13/17 01/24/20 01/23/20 Rx carvediloL [Coreg] 3.125 mg PO BID #60 tablet 05/13/17 01/24/20 01/23/20 Rx metFORMIN [Glucophage] 500 mg PO TID #60 tablet 10/26/17 01/24/20 01/23/20 Rx Albuterol INH(or & Nicu Only) 1 puff IH Q4-6H PRN #1 inha 09/12/18 01/24/20 01/23/20 Rx [ProAir HFA Inhaler] Azithromycin [Zithromax] 250 mg PO DAILY #6 tablet 09/12/18 01/24/20 01/23/20 Rx Benzonatate [Tessalon Perles] 100 mg PO Q8HR PRN #30 capsule 09/12/18 01/24/20 01/23/20 Rx Fluticasone [Flonase] 1 spray NS QDAY #1 bottle 09/12/18 01/24/20 01/23/20 Rx Ibuprofen [Motrin] 800 mg PO Q8HR PRN #30 tablet 03/28/19 01/24/20 01/23/20 Rx Meclizine [Antivert] 25 mg PO TID PRN #30 tablet 03/28/19 01/24/20 01/23/20 Rx Exam - Physical Exam Narrative exam: GENERAL: well-developed and morbidly obese -Serbian female lying on bed appeared to be in no discomfort. HEENT: Normocephalic. Atraumatic. No conjunctival congestion or icterus. Patient has moist mucous membranes. NECK: Supple. Trachea midline. CHEST/LUNGS: Coarse breath sounds auscultated bilaterally, breathing nonlabored. No wheezes crackles or rhonchi. HEART/CARDIOVASCULAR: Regular in rate and rhythm. S1 and S2 positive. ABDOMEN: Abdomen is soft, nontender. Patient has normal bowel sounds. SKIN: There is no rash. Warm and dry. NEURO: No focal motor deficit. Follows command. MUSCULOSKELETAL: No joint effusion or tenderness. EXTRIMITY: No edema, no cyanosis or clubbing. PSYCH: Cooperative. - Constitutional Vitals: Temp Pulse Resp BP Pulse Ox 100.3 F H 100 H 18 134/72 94 01/23/20 11:47 01/23/20 11:47 01/23/20 11:47 01/23/20 11:42 01/23/20 11:47 HEART Score - HEART Score Troponin: Troponin T < 0.010 ng/mL (0.00-0.029) 01/23/20 11:53 Results - Labs CBC & Chem 7: 01/23/20 11:53 01/24/20 13:15 Labs: Abnormal lab results 01/23/20 01/23/20 01/23/20 Range/Units 11:53 11:53 11:53 RDW 13.0 L (13.2-15.2) % [place] % (Auto) 11.1 H (0.0-7.3) % Baso % (Auto) 2.6 H (0.0-1.8) % Baso # 0.2 H (0.0-0.1) K/mm3 Sodium 135 L (137-145) mmol/L Chloride 96.4 L (98-107) mmol/L Creatinine 0.6 L (0.7-1.2) mg/dL Glucose 301 H 301 H (65-100) mg/dL Lactate Dehydrogenase 225 H (91-180) units/L C-Reactive Protein 3.80 H (0.00-1.30) mg/dL - Imaging and Cardiology Chest x-ray: report reviewed (No acute findings) Assessment and Plan Suspected COVID-19 -Order for COVID-19, follow inflammatory markers -If positive will consult ID, will give 1 dose of Solu-Medrol -Place on contact and droplet precaution Acute hypoxic respiratory failure -O2 sat 84% on room air -Likely due to COPD exacerbation and possible COVID-19 -We will follow COVID-19 test, placed on supplemental O2, scheduled labs and IV Solu-Medrol COPD with exacerbation -- We'll admit the patient to telemetry - Will provide scheduled nebulizer breathing treatment and as needed - Place on empiric steroid and antibiotic - will get sputum culture, chest x-ray was unremarkable - Provide supplemental oxygen to keep oxygen saturation above 92% Morbid obesity -Dietary and exercise recommendation when medically stable Diabetes mellitus type 2 -Consistent carb diet with sliding scale of insulin -Accu-Chek [employer] Hypertension -We will resume home medications, IV hydralazine as needed - Provide DVT prophylaxis with Lovenox.
[2020-01-23] MEDS ORDERED: ACETAMINOPHEN 500 MG TAB ONE (13:58)
[2020-01-23] MEDS ORDERED: ALBUTEROL 8.5 GM MDI INHALATION IH PRN (16:26)
[2020-01-23] MEDS ORDERED: methylPREDNISolone Sod Succinate 40 MG/1 ML INJ ONE (21:32)
[2020-01-23] MEDS: methylPREDNISolone Sod Succinate 40 MG/1 ML INJ IV SCH (22:32)
[2020-01-24] MEDS: GABAPENTIN 300 MG CAP PO SCH ×3 (00:36→22:10)
[2020-01-24] MEDS: BENZONATATE 100 MG CAP PO PRN ×2 (00:37→22:09)
[2020-01-24] MEDS: CYCLOBENZAPRINE 10 MG TAB PO PRN ×2 (00:37→22:10)
[2020-01-24] MEDS: methylPREDNISolone Sod Succinate 40 MG/1 ML INJ IV SCH ×4 (00:38→22:10)
[2020-01-24] MEDS ORDERED: hydrALAZINE 20 MG/1 ML INJ IV PRN (00:47)
[2020-01-24] MEDS: ACETAMINOPHEN 325 MG TAB PO PRN (01:23)
[2020-01-24] MEDS ORDERED: NON-FORMULARY EACH (Lisinopril [Zestril Tab] 2.5 MG) PO SCH (10:00)
[2020-01-24] MEDS ORDERED: AZITHROMYCIN 500 MG in SODIUM CHLORIDE 0.9% 250ML 250 ML IV SCH (10:00)
[2020-01-24] MEDS ORDERED: cefTRIAXone/NS 2 GM/100 ML 2 GM/100 ML BAG IV SCH (10:00)
[2020-01-24] MEDS ORDERED: cefTRIAXone/NS 1 GM/50 ML 1 GM/50 ML BAG IV SCH (10:00)
[2020-01-24] MEDS: PANTOPRAZOLE 40 MG TAB PO SCH (12:50)
[2020-01-24] MEDS: POTASSIUM CHLORIDE ER 10 MEQ TAB PO SCH (12:50)
[2020-01-24] MEDS: LISINOPRIL 5 MG TAB PO SCH ×2 (12:50→14:29)
[2020-01-24] MEDS: amLODIPine 5 MG TAB PO SCH (12:50)
[2020-01-24] MEDS: ASPIRIN 81 MG TAB CHEW PO SCH (12:50)
[2020-01-24] MEDS: FLUTICASONE PROPIONATE NASAL SPRAY 16 GM NS SCH (14:30)
[2020-01-24] MEDS: INSULIN REGULAR, HUMAN 100 UNITS/1 ML SUB-Q SCH ×3 (14:31→23:09)
[2020-01-24 15:04] LABS: C-Reactive Protein 2.6 mg/dL (0.00-1.30)
--- NOTE | 2020-01-24 20:35 | Consultation ---
History of Present Illness - Reason for Consult Consult date: 01/24/20 COVID Requesting physician: EUGENIO ANNE - History of Present Illness 54 years old female with history of morbid obesity, HTN, DM, COPD not on home O2 admitted on 01/23/2020 due to 3-day history of body aches, generalized malaise, dry cough, progressive shortness of breath. Patient denies diarrhea. Patient denies having contact with anyone known to be positive for COVID-19. 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 On arrival, temp 100.9, HR 107, R 26, O2 84%. WBC 6.3. Ddimer 214. Ferritin 239. LDH 225. CRP 3.8. Procal 0.1. COVID positive. CXR clear. Review of Systems: positive in bold print General: fever, chills, malaise Cutaneous: rash, pruritus Head: headaches or injury Eyes: changes in vision, eye pain, double vision Ears: ear pain, ear discharge, ringing or hearing loss Nose: nose bleeding, stuffiness Mouth & throat: bleeding gums, horseness, no dental problems, or swollen glands Neck: no pain, node enlargement/lumps, tyroid enlargement or tenderness Respiratory: SOB, cough, [place], wheezing, sputum, hemoptysis, pleuritic chest pain Cardiovascular: chest pain, leg edema, cyanosis, [place], orthopnea Musculoskeletal: edema, deformities, pain Gastrointestinal: nausea, vomiting, hematemesis, diarrhea, constipation, melena, bright red blood in stools, fecal incontinence, jaundice Genitourinary/Reproductive: frequent urination, dysuria, hematuria, incontinence Neurogical: seizures, headaches, weakness, paresthesias, loss of speech or vision; memory loss, vertigo, tremors, numbness Psychiatric: stable mood; excessive anxiety, sadness or moodiness Medications and Allergies Allergies Allergy/AdvReac Type Severity Reaction Status Date / Time codeine Allergy Itching Verified 02/05/16 09:46 Home Medications Medication Instructions Recorded Confirmed Last Taken Type Naproxen [Naprosyn TAB] 500 mg PO BID PRN #60 tablet 03/19/17 01/24/20 01/23/20 Rx Aspirin [Aspirin BABY CHEW TAB] 81 mg PO QDAY #30 tab.chew 05/13/17 01/24/20 01/23/20 Rx AtorvaSTATin [Lipitor] 40 mg PO QHS #30 tablet 05/13/17 01/24/20 01/23/20 Rx Cyclobenzaprine [Flexeril 10 MG 10 mg PO TID PRN #30 tablet 05/13/17 01/24/20 01/23/20 Rx TAB] Furosemide [Lasix] 40 mg PO DAILY #30 tablet 05/13/17 01/24/20 01/23/20 Rx Gabapentin 300 mg PO BID #60 capsule 05/13/17 01/24/20 01/23/20 Rx Lisinopril [Zestril TAB] 2.5 mg PO QDAY #30 tab 05/13/17 01/24/20 01/23/20 Rx Pantoprazole [Protonix TAB] 40 mg PO QDAY #30 tablet 05/13/17 01/24/20 01/23/20 Rx Potassium Chloride [K-Dur] 10 meq PO QDAY #30 tablet 05/13/17 01/24/20 01/23/20 Rx amLODIPine 5 mg PO DAILY #15 tab 05/13/17 01/24/20 01/23/20 Rx amLODIPine 10 mg PO DAILY #30 tab 05/13/17 01/24/20 01/23/20 Rx carvediloL [Coreg] 3.125 mg PO BID #60 tablet 05/13/17 01/24/20 01/23/20 Rx metFORMIN [Glucophage] 500 mg PO TID #60 tablet 10/26/17 01/24/20 01/23/20 Rx Albuterol INH(or & Nicu Only) 1 puff IH Q4-6H PRN #1 inha 09/12/18 01/24/20 01/23/20 Rx [ProAir HFA Inhaler] Azithromycin [Zithromax] 250 mg PO DAILY #6 tablet 09/12/18 01/24/20 01/23/20 Rx Benzonatate [Tessalon Perles] 100 mg PO Q8HR PRN #30 capsule 09/12/18 01/24/20 01/23/20 Rx Fluticasone [Flonase] 1 spray NS QDAY #1 bottle 09/12/18 01/24/20 01/23/20 Rx Ibuprofen [Motrin] 800 mg PO Q8HR PRN #30 tablet 03/28/19 01/24/2001/22/20 Rx Meclizine [Antivert] 25 mg PO TID PRN #30 tablet 03/28/19 01/24/20 01/23/20 Rx Active Meds: Active Medications Acetaminophen (Tylenol) 650 mg PO Q4H PRN PRN Reason: Pain, Mild (1-3) Last Admin: 01/24/20 01:23 Dose: 650 mg Documented by: Albuterol (Proair) 1 puff IH Q4HRT PRN PRN Reason: Cough OR WHEEZING Amlodipine Besylate (Amlodipine) 5 mg PO DAILY [facility] Last Admin: 01/24/20 12:50 Dose: 5 mg Documented by: Aspirin (Baby Aspirin) 81 mg PO QDAY [facility] Last Admin: 01/24/20 12:50 Dose: 81 mg Documented by: Atorvastatin Calcium (Lipitor) 40 mg PO QHS [facility] Last Admin: 01/24/20 00:37 Dose: 40 mg Documented by: Azithromycin (Zithromax) 500 mg PO QDAY [facility] Benzonatate (Tessalon Perles) 100 mg PO Q8HR PRN PRN Reason: Cough Last Admin: 01/24/20 00:37 Dose: 100 mg Documented by: Carvedilol (Coreg) 3.125 mg PO BID [facility] Cyclobenzaprine HCl (Flexeril) 10 mg PO TID PRN PRN Reason: Muscle Spasm Last Admin: 01/24/20 00:37 Dose: 10 mg Documented by: Enoxaparin Sodium (Enoxaparin) 40 mg SUB-Q QDAY@2200 [facility] Fluticasone Propionate (Flonase) 50 mcg NS QDAY [facility] Last Admin: 01/24/20 14:30 Dose: 50 mcg Documented by: Gabapentin (Gabapentin) 300 mg PO BID [facility] Last Admin: 01/24/20 12:51 Dose: 300 mg Documented by: Hydralazine HCl (Apresoline) 10 mg IV Q4H PRN PRN Reason: Hypertension Last Admin: 01/24/20 01:23 Dose: 10 mg Documented by: Ceftriaxone Sodium (Rocephin/Ns 2 Gm/100 Ml) 2 gm in 100 mls @ 200 mls/hr IV Q24HR [facility]; Protocol Last Admin: 01/24/20 12:49 Dose: 200 mls/hr Documented by: Insulin Human NPH (Humulin N) 8 unit SUB-Q BIDDIAB [facility] Insulin Human Regular (Humulin R) 0 units SUB-Q ACHS [facility]; Protocol Last Admin: 01/24/20 17:14 Dose: 10 units Documented by: Lisinopril (Zestril) 2.5 mg PO QDAY [facility] Last Admin: 01/24/20 14:29 Dose: Not Given Documented by: Methylprednisolone Sodium Succinate (Solu-Medrol) 40 mg IV Q24HR ROLY Pantoprazole Sodium (Protonix) 40 mg PO QDAY [facility] Last Admin: 01/24/20 12:50 Dose: 40 mg Documented by: Potassium Chloride (K-Dur) 10 meq PO QDAY [facility] Last Admin: 01/24/20 12:50 Dose: 10 meq Documented by: Physical Examination - Physical Exam Narrative exam: Limited due to PPE conservation - Constitutional Vitals: Vital Signs Temp Pulse Resp BP Pulse Ox 98.9 F 97 H 18 136/73 97 01/24/20 17:33 01/24/20 17:33 01/24/20 17:33 01/24/20 17:33 01/24/20 17:33 Temperature -Last 24 Hours Temperature 98.9 F Temperature 98.7 F Temperature 99.1 F Temperature 102.6 F Results - Labs CBC & Chem 7: 01/23/20 11:53 01/24/20 13:15 Labs: Abnormal lab results 01/23/20 01/24/20 01/24/20 Range/Units Unknown 07:46 11:47 Glucose (65-100) mg/dL POC Glucose 415 H 391 H (70-105) Lactate Dehydrogenase (91-180) units/L C-Reactive Protein (0.00-1.30) mg/dL Coronavirus (PCR) Positive A (Negative) 01/24/20 01/24/20 Range/Units 13:15 16:21 Glucose 493 H (65-100) mg/dL POC Glucose 411 H (70-105) Lactate Dehydrogenase 267 H (91-180) units/L C-Reactive Protein 2.60 H (0.00-1.30) mg/dL Coronavirus (PCR) (Negative) Assessment and Plan Cultures: Blood cultures so far negative Assessment: #Severe sepsis: Present on admission with tachycardia, fever, hypoxia; secondary to severe COVID. #Severe COVID pneumonia: Initial sats 84% on room air. Patient currently on NC O2 2L. Inflammatory markers d-dimer normal, ferritin normal. Procalcitonin 0.05. #Acute hypoxemic respiratory failure: on 2L NC #Morbid obesity: Adjusting medication to the weight #DM: uncontrolled Recommendations: Start Remdesivir 200 mg IV x1 followed by 100 g IV once a day x 4 days Continue Solu-Medrol increase to 40 mg IV every 8 hour-higher dose Daily biomarkers Stop abx High risk for deterioration Will follow. Tiffanie Sue MD Infectious Diseases [employer] [facility] M [phone] O [phone]
[2020-01-24] MEDS ORDERED: REMDESIVIR 200 MG in SODIUM CHLORIDE 0.9% 250ML 250 ML IV ONE (21:30)
[2020-01-24] MEDS: ENOXAPARIN 40 MG/0.4 ML INJ SUB-Q SCH (22:10)
[2020-01-24] MEDS: carvediloL 3.125 MG TAB PO SCH (22:10)
[2020-01-24] MEDS: SODIUM CHLORIDE 0.9% 50 ML IVPB IV SCH (23:11)
--- NOTE | 2020-01-25 00:11 | Progress Note ---
Assessment and Plan COVID-19 PNA -follow inflammatory markers -consulted ID, cont Solu-Medrol, started on Remdisivir -cont on contact and droplet precaution Acute hypoxic respiratory failure -O2 sat 84% on room air -Likely due to COPD exacerbation and COVID-19 -on supplemental O2, scheduled labs and IV Solu-Medrol COPD with exacerbation - provide scheduled nebulizer breathing treatment and as needed - Place on empiric steroid and remdisevir - chest x-ray was unremarkable - Provide supplemental oxygen to keep oxygen saturation above 92% Morbid obesity -Dietary and exercise recommendation when medically stable Diabetes mellitus type 2 -Consistent carb diet with sliding scale of insulin - will also add long acting insulin, check a1c -Accu-Chek [facility] Hypertension -resumed home medications, IV hydralazine as needed - Provide DVT prophylaxis with Lovenox. 01/23: positive for covid 19. Continue Solu-Medrol 40 mg IV every 8 hours, Remdesivir. Obtain daily inflammatory markers - ferritin, Ddimer, CRP, LDH Subjective Date of service: 01/24/20 Interval history: Patient seen and examined. Medical records and medication list reviewed. No acute event overnight noted by the RN. Patient denies any chest pain but c/o difficulty breathing on minimal exertion. Patient is tolerating diet. Discussed plan of care at bedside with patient. Objective - Exam Narrative Exam: GENERAL: well-developed and morbidly obese -Malag[place] female lying on bed appeared to be in no discomfort. HEENT: Normocephalic. Atraumatic. No conjunctival congestion or icterus. Patient has moist mucous membranes. NECK: Supple. Trachea midline. CHEST/LUNGS: Coarse breath sounds auscultated bilaterally, breathing nonlabored. No wheezes crackles or rhonchi. HEART/CARDIOVASCULAR: Regular in rate and rhythm. S1 and S2 positive. ABDOMEN: Abdomen is soft, nontender. Patient has normal bowel sounds. SKIN: There is no rash. Warm and dry. NEURO: No focal motor deficit. Follows command. MUSCULOSKELETAL: No joint effusion or tenderness. EXTRIMITY: No edema, no cyanosis or clubbing. PSYCH: Cooperative. - Constitutional Vitals: Vital Signs - 12hr 01/24/20 01/25/20 17:33 00:03 Temperature 98.9 F Pulse Rate 97 H Respiratory 18 20 Rate Blood Pressure 136/73 O2 Sat by Pulse 97 Oximetry - Labs CBC & Chem 7: 07/01/20 11:53 01/24/20 13:15 Labs: Abnormal lab results 01/23/20 01/24/20 01/24/20 Range/Units Unknown 07:46 11:47 Glucose (65-100) mg/dL POC Glucose 415 H 391 H (70-105) Lactate Dehydrogenase (91-180) units/L C-Reactive Protein (0.00-1.30) mg/dL Coronavirus (PCR) Positive A (Negative) 01/24/20 01/24/20 01/24/20 Range/Units 13:15 16:21 22:31 Glucose 493 H (65-100) mg/dL POC Glucose 411 H 395 H (70-105) Lactate Dehydrogenase 267 H (91-180) units/L C-Reactive Protein 2.60 H (0.00-1.30) mg/dL Coronavirus (PCR) (Negative) HEART Score - HEART Score Troponin: Troponin T < 0.010 ng/mL (0.00-0.029) 01/23/20 11:53
[2020-01-25] MEDS: methylPREDNISolone Sod Succinate 40 MG/1 ML INJ IV SCH ×3 (05:29→21:23)
[2020-01-25] MEDS: INSULIN NPH, HUMAN 100 UNIT/1 ML SUB-Q SCH ×2 (08:59→17:19)
[2020-01-25] MEDS: INSULIN REGULAR, HUMAN 100 UNITS/1 ML SUB-Q SCH ×5 (08:59→21:55)
[2020-01-25] MEDS: ASPIRIN 81 MG TAB CHEW PO SCH (09:47)
[2020-01-25] MEDS: amLODIPine 5 MG TAB PO SCH (09:48)
[2020-01-25] MEDS: FLUTICASONE PROPIONATE NASAL SPRAY 16 GM NS SCH (09:48)
[2020-01-25] MEDS: carvediloL 3.125 MG TAB PO SCH ×2 (09:48→21:24)
[2020-01-25] MEDS: PANTOPRAZOLE 40 MG TAB PO SCH (09:48)
[2020-01-25] MEDS: LISINOPRIL 5 MG TAB PO SCH (09:48)
[2020-01-25] MEDS: POTASSIUM CHLORIDE ER 10 MEQ TAB PO SCH (09:48)
[2020-01-25] MEDS: GABAPENTIN 300 MG CAP PO SCH ×2 (09:48→21:23)
[2020-01-25] MEDS ORDERED: methylPREDNISolone Sod Succinate 40 MG/1 ML INJ IV SCH (10:00)
[2020-01-25] MEDS ORDERED: AZITHROMYCIN 250 MG TAB PO SCH (10:00)
[2020-01-25] MEDS: REMDESIVIR 100 MG in SODIUM CHLORIDE 0.9% 250ML 250 ML IV SCH (21:22)
[2020-01-25] MEDS: ENOXAPARIN 40 MG/0.4 ML INJ SUB-Q SCH (21:22)
[2020-01-25] MEDS: SODIUM CHLORIDE 0.9% 50 ML IVPB IV SCH (23:17)
--- NOTE | 2020-01-26 01:37 | Progress Note ---
Assessment and Plan Severe sepsis: - Present on admission with tachycardia, fever, hypoxia; secondary to severe COVID. - follow ID recommendation COVID-19 PNA -follow inflammatory markers -consulted ID, cont Solu-Medrol, started on Remdisivir -cont on contact and droplet precaution Acute hypoxic respiratory failure -O2 sat 84% on room air -Likely due to COPD exacerbation and COVID-19 -on supplemental O2, scheduled labs and IV Solu-Medrol COPD with exacerbation - provide scheduled nebulizer breathing treatment and as needed - Place on empiric steroid and remdisevir - chest x-ray was unremarkable - Provide supplemental oxygen to keep oxygen saturation above 92% Morbid obesity -Dietary and exercise recommendation when medically stable Diabetes mellitus type 2 -Consistent carb diet with sliding scale of insulin - will also add long acting insulin, check a1c -Accu-Chek [facility] Hypertension -resumed home medications, IV hydralazine as needed - Provide DVT prophylaxis with Lovenox. 01/23: positive for covid 19. Continue Solu-Medrol 40 mg IV every 8 hours, Remdesivir. Obtain daily inflammatory markers - ferritin, Ddimer, CRP, LDH 01/24: cont Solu-Medrol 40 mg IV every 8 hours, Remdesivir day 2. need to assess for home O2 on discharge Brief history: 54 years old female with history of morbid obesity, HTN, DM, COPD not on home O2 admitted on 01/23/2020 due to 3-day history of body aches, generalized malaise, dry cough, progressive shortness of breath. COVID positive. CXR clear. Subjective Date of service: 01/25/20 Interval history: Patient seen and examined. Medical records and medication list reviewed. No acute event overnight noted by the RN. c/o difficulty breathing on exertion. Patient is tolerating diet. Discussed plan of care at bedside with patient. Objective - Exam Narrative Exam: GENERAL: well-developed and morbidly obese -[place] female lying on bed appeared to be in no discomfort. HEENT: Normocephalic. Atraumatic. No conjunctival congestion or icterus. Patient has moist mucous membranes. NECK: Supple. Trachea midline. CHEST/LUNGS: Coarse breath sounds auscultated bilaterally, breathing nonlabored. No wheezes crackles or rhonchi. HEART/CARDIOVASCULAR: Regular in rate and rhythm. S1 and S2 positive. ABDOMEN: Abdomen is soft, nontender. Patient has normal bowel sounds. SKIN: There is no rash. Warm and dry. NEURO: No focal motor deficit. Follows command. MUSCULOSKELETAL: No joint effusion or tenderness. EXTRIMITY: No edema, no cyanosis or clubbing. PSYCH: Cooperative. - Constitutional Vitals: Vital Signs - 12hr 01/25/20 01/25/20 16:33 22:11 Temperature 98.4 F 99.1 F Pulse Rate 83 99 H Respiratory 18 20 Rate Blood Pressure 148/96 130/56 O2 Sat by Pulse 96 93 Oximetry - Labs CBC & Chem 7: 01/23/20 11:53 01/24/20 13:15 Labs: Abnormal lab results 01/25/20 01/25/20 01/25/20 Range/Units 07:48 11:55 16:44 POC Glucose 315 H 383 H 336 H (70-105) 01/25/20 Range/Units 22:23 POC Glucose 390 H (70-105) HEART Score - HEART Score Troponin: Troponin T < 0.010 ng/mL (0.00-0.029) 01/23/20 11:53
[2020-01-26] MEDS: methylPREDNISolone Sod Succinate 40 MG/1 ML INJ IV SCH ×3 (05:32→21:26)
[2020-01-26] MEDS ORDERED: INSULIN NPH, HUMAN 100 UNIT/1 ML SUB-Q SCH (08:00)
[2020-01-26] MEDS: INSULIN REGULAR, HUMAN 100 UNITS/1 ML SUB-Q SCH ×4 (08:36→23:19)
[2020-01-26] MEDS: GABAPENTIN 300 MG CAP PO SCH ×2 (10:43→21:23)
[2020-01-26] MEDS: carvediloL 3.125 MG TAB PO SCH ×2 (10:43→21:25)
[2020-01-26] MEDS: POTASSIUM CHLORIDE ER 10 MEQ TAB PO SCH (10:43)
[2020-01-26] MEDS: FLUTICASONE PROPIONATE NASAL SPRAY 16 GM NS SCH (10:43)
[2020-01-26] MEDS: ASPIRIN 81 MG TAB CHEW PO SCH (10:44)
[2020-01-26] MEDS: LISINOPRIL 5 MG TAB PO SCH (10:44)
[2020-01-26] MEDS: PANTOPRAZOLE 40 MG TAB PO SCH (10:44)
[2020-01-26] MEDS: amLODIPine 5 MG TAB PO SCH (10:44)
--- NOTE | 2020-01-26 13:23 | Progress Note ---
Subjective Date of service: 01/26/20 Interval history: A/P: ?? Sepsis-no blood cultures were obtained -Most likely patient has SIRS. - Present on admission with tachycardia, fever, hypoxia; secondary to severe COVID. -ID consult note reviewed-off antibiotics COVID-19 PNA -follow inflammatory markers - ID consult note reviewed, cont Solu-Medrol, and Remdesivir -cont enhanced contact and droplet precaution Acute hypoxic respiratory failure -O2 sat 84% on room air -Likely due to COPD exacerbation and COVID-19 -Continue oxygen via nasal cannula and IV Solu-Medrol COPD with exacerbation -Continue neb treatments -Continue steroid and remdisevir - chest x-ray was unremarkable - supplemental oxygen to keep oxygen saturation above 92% Morbid obesity -Dietary and exercise recommendation when medically stable Diabetes mellitus type 2-uncontrolled -Consistent carb diet with sliding scale of insulin -A1c 11.5 -Increase NPH insulin dose Accu-Cheks reviewed Hypertension -Continue home medications, IV hydralazine as needed - DVT prophylaxis with Lovenox. 01/23: positive for covid 19. Continue Solu-Medrol 40 mg IV every 8 hours, Remdesivir. Obtain daily inflammatory markers - ferritin, Ddimer, CRP, LDH 01/24: cont Solu-Medrol 40 mg IV every 8 hours, Remdesivir day 2. need to assess for home O2 on discharge 01/25 patient is alert and oriented, offers no specific complaints except mild cough, denies chest pain or shortness of breath, denies any acute events overnight Denies fever or chills. Denies nausea or abdominal pain. Lab results reviewed. ID consult note reviewed Brief history: 54 years old female with history of morbid obesity, HTN, DM, COPD not on home O2 admitted on 01/23/2020 due to 3-day history of body aches, generalized malaise, dry cough, progressive shortness of breath. COVID positive. CXR clear. Patient seen and examined. Medical records and medication list reviewed. No acute event overnight noted by the RN. c/o difficulty breathing on exertion. Patient is tolerating diet. Discussed plan of care at bedside with patient. Objective - Exam Narrative Exam: GENERAL: well-developed and morbidly obese -Hungarian female lying on bed appeared to be in no discomfort. HEENT: Normocephalic. FABRICIO, throat is clear NECK: Supple. no JVD CHEST/LUNGS: Coarse breath sounds auscultated bilaterally, no rhonchi or wheezing or rails HEART/CARDIOVASCULAR: Regular in rate and rhythm. ABDOMEN: Abdomen is soft, nontender. Patient has normal bowel sounds. SKIN: There is no rash. Warm and dry. NEURO: No focal motor deficit. Follows command. MUSCULOSKELETAL: No joint effusion or tenderness. EXTRIMITY: No edema, no cyanosis or clubbing. PSYCH: Normal mood and affect, cooperative. Objective - Constitutional Vitals: Vital Signs - 12hr 01/26/20 01/26/20 05:42 11:23 Temperature 98.6 F 98.3 F Pulse Rate 80 82 Respiratory 20 18 Rate Blood Pressure 127/60 131/58 O2 Sat by Pulse 90 91 Oximetry - Labs CBC & Chem 7: 01/23/20 11:53 01/24/20 13:15 Labs: Abnormal lab results 01/25/20 01/25/20 01/26/20 Range/Units 16:44 22:23 05:57 POC Glucose 336 H 390 H (70-105) Hemoglobin A1c (4-6) % Lactate Dehydrogenase 373 H (91-180) units/L 01/26/20 01/26/20 01/26/20 Range/Units 05:57 08:28 11:34 POC Glucose 309 H 464 H (70-105) Hemoglobin A1c 11.5 H (4-6) % Lactate Dehydrogenase (91-180) units/L HEART Score - HEART Score Troponin: Troponin T < 0.010 ng/mL (0.00-0.029) 01/23/20 11:53
[2020-01-26] MEDS: INSULIN NPH, HUMAN 100 UNIT/1 ML SUB-Q SCH (17:40)
--- NOTE | 2020-01-26 19:05 | Progress Note ---
Assessment and Plan Cultures: None Assessment: #Severe sepsis: Present on admission with tachycardia, fever, hypoxia; secondary to severe COVID. #Severe COVID pneumonia: Initial sats 84% on room air. Patient currently on NC O2 2L. Inflammatory markers d-dimer normal, ferritin normal. Procalcitonin 0.0 5. #Acute hypoxemic respiratory failure: on 2L NC #Morbid obesity: Adjusting medication to the weight #DM: uncontrolled Recommendations: Continue Remdesivir now on day 3 of 5 Continue Solu-Medrol increase to 40 mg IV every 8 hour Daily biomarkers -mostly normal High risk for deterioration Dr. Rizzo taking over Tuesday Nicole Damian MD [facility], [place], [facility] ([facility]) M: [phone] O: [phone] F: [phone] Subjective Date of service: 01/26/20 Interval history: Afebrile, complaining of shortness of breath on exertion. No other acute complaints. Objective - Exam Narrative Exam: Physical exam deferred due to PPE conservation strategy. Reviewed in chart. - Constitutional Vitals: Vital Signs Temp Pulse Resp BP Pulse Ox 99.1 F 83 20 138/57 85 01/26/20 16:24 01/26/20 16:24 01/26/20 16:24 01/26/20 16:24 01/26/20 16:24 Temperature -Last 24 Hours Temperature 99.1 F Temperature 98.3 F Temperature 98.6 F Temperature 99.1 F - Labs CBC & Chem 7: 01/23/20 11:53 01/24/20 13:15 Labs: Abnormal lab results 01/25/20 01/26/20 01/26/20 Range/Units 22:23 05:57 05:57 POC Glucose 390 H (70-105) Hemoglobin A1c 11.5 H (4-6) % Lactate Dehydrogenase 373 H (91-180) units/L 01/26/20 01/26/20 01/26/20 Range/Units 08:28 11:34 16:35 POC Glucose 309 H 464 H 370 H (70-105) Hemoglobin A1c (4-6) % Lactate Dehydrogenase (91-180) units/L
[2020-01-26] MEDS: ENOXAPARIN 40 MG/0.4 ML INJ SUB-Q SCH (21:25)
[2020-01-26] MEDS: REMDESIVIR 100 MG in SODIUM CHLORIDE 0.9% 250ML 250 ML IV SCH (21:26)
[2020-01-26] MEDS: SODIUM CHLORIDE 0.9% 50 ML IVPB IV SCH (22:10)
[2020-01-27] MEDS: methylPREDNISolone Sod Succinate 40 MG/1 ML INJ IV SCH ×3 (05:13→21:59)
[2020-01-27 07:26] LABS: Hematocrit 42.6 % (30.3-42.9); Hemoglobin 13.8 gm/dl (10.1-14.3); Mean Corpuscular HGB Conc 32 % (30-34); Mean Corpuscular Volume 94 fl (79-97); Platelet Count 313 K/mm3 (140-440); Red Blood Count 4.52 M/mm3 (3.65-5.03)
[2020-01-27 07:48] LABS: BUN/Creatinine Ratio 28; Blood Urea Nitrogen 17 mg/dL (7-17); Calcium 8.9 mg/dL (8.4-10.2); Hemolysis Index 19
[2020-01-27] MEDS: INSULIN REGULAR, HUMAN 100 UNITS/1 ML SUB-Q SCH ×4 (09:05→23:47)
[2020-01-27] MEDS: INSULIN NPH, HUMAN 100 UNIT/1 ML SUB-Q SCH ×2 (09:06→18:22)
[2020-01-27] MEDS: GABAPENTIN 300 MG CAP PO SCH ×2 (11:00→21:59)
[2020-01-27] MEDS: amLODIPine 5 MG TAB PO SCH (11:00)
[2020-01-27] MEDS: ASPIRIN 81 MG TAB CHEW PO SCH (11:01)
[2020-01-27] MEDS: carvediloL 3.125 MG TAB PO SCH ×2 (11:01→21:59)
[2020-01-27] MEDS: PANTOPRAZOLE 40 MG TAB PO SCH (11:01)
[2020-01-27] MEDS: LISINOPRIL 5 MG TAB PO SCH ×2 (11:01→14:50)
[2020-01-27] MEDS: FLUTICASONE PROPIONATE NASAL SPRAY 16 GM NS SCH (11:02)
[2020-01-27] MEDS: ACETAMINOPHEN 325 MG TAB PO PRN (11:09)
--- NOTE | 2020-01-27 13:03 | Progress Note ---
Subjective Date of service: 01/27/20 Interval history: A/P: ?? Sepsis-no blood cultures were obtained -Most likely patient has SIRS. - Present on admission with tachycardia, fever, hypoxia; secondary to severe COVID. -ID consult note reviewed-off antibiotics COVID-19 PNA -follow inflammatory markers - ID consult note reviewed, cont Solu-Medrol, and Remdesivir -cont enhanced contact and droplet precaution Acute hypoxic respiratory failure -O2 sat 84% on room air -Likely due to COPD exacerbation and COVID-19 -Continue oxygen via nasal cannula and IV Solu-Medrol COPD with exacerbation -Continue neb treatments -Continue steroid and remdisevir - chest x-ray was unremarkable - supplemental oxygen to keep oxygen saturation above 92% Morbid obesity -Dietary and exercise recommendation when medically stable Diabetes mellitus type 2-uncontrolled -Consistent carb diet with sliding scale of insulin -A1c 11.5 -Increase NPH insulin dose Accu-Cheks reviewed Hypertension -Continue home medications, IV hydralazine as needed - DVT prophylaxis with Lovenox. 01/23: positive for covid 19. Continue Solu-Medrol 40 mg IV every 8 hours, Remdesivir. Obtain daily inflammatory markers - ferritin, Ddimer, CRP, LDH 01/24: cont Solu-Medrol 40 mg IV every 8 hours, Remdesivir day 2. need to assess for home O2 on discharge 01/25 patient is alert and oriented, offers no specific complaints except mild cough, denies chest pain or shortness of breath, denies any acute events overnight Denies fever or chills. Denies nausea or abdominal pain. Lab results reviewed. ID consult note reviewed 01/26 no acute events overnight per discussion with RN, patient offers no complaints when enquired via phone Lab results reviewed, potassium supplements discontinued, ID note reviewed Brief history: 54 years old female with history of morbid obesity, HTN, DM, COPD not on home O2 admitted on 01/23/2020 due to 3-day history of body aches, generalized malaise, dry cough, progressive shortness of breath. COVID positive. CXR clear. Patient seen and examined. Medical records and medication list reviewed. No acute event overnight noted by the RN. c/o difficulty breathing on exertion. Patient is tolerating diet. Discussed plan of care at bedside with patient. Objective - Exam Narrative Exam: Physical examination was not done today Patient had no acute symptoms overnight Patient had no specific complaints except mild cough and denies shortness of breath at rest Objective - Constitutional Vitals: Vital Signs - 12hr 01/27/20 01/27/20 01/27/20 05:31 10:58 11:00 Temperature 98.5 F Pulse Rate 79 Respiratory 20 Rate Blood Pressure 133/62 148/70 148/70 O2 Sat by Pulse 93 Oximetry 01/27/20 01/27/20 11:01 11:03 Temperature 98.3 F Pulse Rate 91 H Respiratory 22 Rate Blood Pressure 148/70 O2 Sat by Pulse 94 Oximetry - Labs CBC & Chem 7: 01/27/20 06:45 01/27/20 06:45 Labs: Abnormal lab results 01/26/20 01/26/20 01/27/20 Range/Units 16:35 22:32 06:45 RDW 13.0 L (13.2-15.2) % Chloride (98-107) mmol/L Carbon Dioxide (22-30) mmol/L Creatinine (0.7-1.2) mg/dL Glucose (65-100) mg/dL POC Glucose 370 H 346 H (70-105) 01/27/20 01/27/20 01/27/20 Range/Units 06:45 07:51 11:32 RDW (13.2-15.2) % Chloride 94.6 L (98-107) mmol/L Carbon Dioxide 31 H (22-30) mmol/L Creatinine 0.6 L (0.7-1.2) mg/dL Glucose 374 H (65-100) mg/dL POC Glucose 318 H 392 H (70-105) HEART Score - HEART Score Troponin: Troponin T < 0.010 ng/mL (0.00-0.029) 01/23/20 11:53
[2020-01-27] MEDS: REMDESIVIR 100 MG in SODIUM CHLORIDE 0.9% 250ML 250 ML IV SCH (21:58)
[2020-01-27] MEDS: ENOXAPARIN 40 MG/0.4 ML INJ SUB-Q SCH (21:59)
[2020-01-27] MEDS: SODIUM CHLORIDE 0.9% 50 ML IVPB IV SCH (22:59)
[2020-01-28] MEDS: methylPREDNISolone Sod Succinate 40 MG/1 ML INJ IV SCH ×2 (05:01→13:54)
[2020-01-28] MEDS: INSULIN REGULAR, HUMAN 100 UNITS/1 ML SUB-Q SCH ×4 (07:30→22:06)
[2020-01-28] MEDS: INSULIN NPH, HUMAN 100 UNIT/1 ML SUB-Q SCH ×2 (08:44→17:00)
[2020-01-28] MEDS ORDERED: carvediloL 3.125 MG TAB PO SCH (09:27)
[2020-01-28] MEDS: amLODIPine 5 MG TAB PO SCH (10:29)
[2020-01-28] MEDS: GABAPENTIN 300 MG CAP PO SCH ×2 (10:29→22:09)
[2020-01-28] MEDS: PANTOPRAZOLE 40 MG TAB PO SCH (10:29)
[2020-01-28] MEDS: ASPIRIN 81 MG TAB CHEW PO SCH (10:29)
[2020-01-28] MEDS: LISINOPRIL 5 MG TAB PO SCH (10:31)
[2020-01-28] MEDS: carvediloL 6.25 MG TAB PO SCH ×2 (10:35→22:09)
[2020-01-28] MEDS: FLUTICASONE PROPIONATE NASAL SPRAY 16 GM NS SCH (12:09)
--- NOTE | 2020-01-28 14:35 | Progress Note ---
Assessment and Plan Cultures: None Assessment: 54/F with #Severe sepsis: Present on admission with tachycardia, fever, hypoxia; secondary to severe COVID. #Severe COVID pneumonia: Initial sats 84% on room air. Patient currently on NC O2 2L. Inflammatory markers d-dimer normal, ferritin normal. Procalcitonin 0.05. #Acute hypoxemic respiratory failure: on 2L NC #Morbid obesity: Adjusting medication to the weight #DM: uncontrolled Recommendations: Completes 5 days of Remdesivir, last dose tonight Switch to p.o. dexamethasone 6 mg daily to complete 10 days Ambulatory saturations prior to discharge, okay for discharge tomorrow after she has completed the 5 days of Remdesivir d/W Dr. Thompson. Phil Rizzo MD, FACP [facility] ([facility]) C: [phone] O: [phone] F: [phone] Subjective Date of service: 01/28/20 Interval history: No fever. Remdesivir day 5 today. On minimal oxygen. Objective - Exam Narrative Exam: Physical Exam (reviewed in chart due to PPE conservation) Constitutional: limited due to PPE conservation strategy Head, Ears, Nose: limited due to PPE conservation strategy Eyes: limited due to PPE conservation strategy Neck: limited due to PPE conservation strategy Oral: limited due to PPE conservation strategy Cardiovascular: limited due to PPE conservation strategy Respiratory: limited due to PPE conservation strategy GI: limited due to PPE conservation strategy Musculoskeletal: limited due to PPE conservation strategy Skin: limited due to PPE conservation strategy Hem/Lymphatic: limited due to PPE conservation strategy Psych: limited due to PPE conservation strategy Neurological: limited due to PPE conservation strategy - Constitutional Vitals: Vital Signs Temp Pulse Resp BP Pulse Ox 97.6 F 78 20 135/65 95 01/28/20 11:08 01/28/20 11:08 01/28/20 11:08 01/28/20 11:08 01/28/20 11:08 Temperature -Last 24 Hours Temperature 97.6 F Temperature 97.5 F Temperature 98.6 F Temperature 98.3 F - Labs CBC & Chem 7: 01/27/20 06:45 01/27/20 06:45 Labs: Abnormal lab results 01/27/20 01/27/20 01/28/20 Range/Units 16:21 22:53 08:00 POC Glucose 358 H 299 H 340 H (70-105) 01/28/20 Range/Units 11:19 POC Glucose 453 H (70-105)
--- NOTE | 2020-01-28 15:18 | Progress Note ---
Assessment and Plan Severe sepsis: - Present on admission with tachycardia, fever, hypoxia; secondary to severe COVID. - follow ID recommendation COVID-19 PNA -follow inflammatory markers -consulted ID, cont Solu-Medrol, started on Remdisivir -cont on contact and droplet precaution Acute hypoxic respiratory failure -O2 sat 84% on room air -Likely due to COPD exacerbation and COVID-19 -on supplemental O2, scheduled labs and IV Solu-Medrol COPD with exacerbation - provide scheduled nebulizer breathing treatment and as needed - Place on empiric steroid and remdisevir - chest x-ray was unremarkable - Provide supplemental oxygen to keep oxygen saturation above 92% Morbid obesity -Dietary and exercise recommendation when medically stable Diabetes mellitus type 2 -Consistent carb diet with sliding scale of insulin - will also add long acting insulin, check a1c -Accu-Chek [facility] Hypertension -resumed home medications, IV hydralazine as needed - Provide DVT prophylaxis with Lovenox. 01/23: positive for covid 19. Continue Solu-Medrol 40 mg IV every 8 hours, Remdesivir. Obtain daily inflammatory markers - ferritin, Ddimer, CRP, LDH 01/24: cont Solu-Medrol 40 mg IV every 8 hours, Remdesivir day 2. need to assess for home O2 on discharge 01/25 patient is alert and oriented, offers no specific complaints except mild cough, denies chest pain or shortness of breath, denies any acute events overnight Denies fever or chills. Denies nausea or abdominal pain. Lab results reviewed. ID consult note reviewed 01/26 no acute events overnight per discussion with RN, patient offers no complaints when enquired via phone Lab results reviewed, potassium supplements discontinued, ID note reviewed 01/27: last dose of Remdesivir is tonight. will change solumedrol iv to dexamethasone po. if clinically stable d/c in the am. increase NPH dose to izabel r control BG Brief history: 54 years old female with history of morbid obesity, HTN, DM, COPD not on home O2 admitted on 01/23/2020 due to 3-day history of body aches, generalized malaise, dry cough, progressive shortness of breath. COVID positive. CXR clear. Subjective Date of service: 01/28/20 Interval history: Patient seen and examined. Medical records and medication list reviewed. No acute event overnight noted by the RN. c/o difficulty breathing on exertion but significantly improved than admission. Patient on 2 to 3 L home O2. Patient is tolerating diet. Discussed plan of care at bedside with patient. Objective - Exam Narrative Exam: GENERAL: well-developed and morbidly obese -[place]itan[place] female lying on bed appeared to be in no discomfort. HEENT: Normocephalic. Atraumatic. No conjunctival congestion or icterus. Patient has moist mucous membranes. NECK: Supple. Trachea midline. CHEST/LUNGS: Coarse breath sounds auscultated bilaterally, breathing nonlabored. No wheezes crackles or rhonchi. HEART/CARDIOVASCULAR: Regular in rate and rhythm. S1 and S2 positive. ABDOMEN: Abdomen is soft, nontender. Patient has normal bowel sounds. SKIN: There is no rash. Warm and dry. NEURO: No focal motor deficit. Follows command. MUSCULOSKELETAL: No joint effusion or tenderness. EXTRIMITY: No edema, no cyanosis or clubbing. PSYCH: Cooperative. - Constitutional Vitals: Vital Signs - 12hr 01/28/20 01/28/20 01/28/20 06:24 09:56 10:00 Temperature 97.5 F L Pulse Rate 78 Respiratory 20 Rate Blood Pressure 141/64 O2 Sat by Pulse 89 81 L 98 Oximetry 01/28/20 01/28/20 10:29 11:08 Temperature 97.6 F Pulse Rate 78 78 Respiratory 20 Rate Blood Pressure 140/68 135/65 O2 Sat by Pulse 95 Oximetry - Labs CBC & Chem 7: 01/27/20 06:45 01/29/20 07:48 Labs: Abnormal lab results 01/27/20 01/27/20 01/28/20 Range/Units 16:21 22:53 08:00 POC Glucose 358 H 299 H 340 H (70-105) 01/28/20 Range/Units 11:19 POC Glucose 453 H (70-105) HEART Score - HEART Score Troponin: Troponin T < 0.010 ng/mL (0.00-0.029) 01/23/20 11:53
[2020-01-28] MEDS: SODIUM CHLORIDE 0.9% 50 ML IVPB IV SCH (22:08)
[2020-01-28] MEDS: ENOXAPARIN 40 MG/0.4 ML INJ SUB-Q SCH (22:08)
[2020-01-28] MEDS: REMDESIVIR 100 MG in SODIUM CHLORIDE 0.9% 250ML 250 ML IV SCH (22:37)
[2020-01-29] MEDS: INSULIN REGULAR, HUMAN 100 UNITS/1 ML SUB-Q SCH (07:30)
[2020-01-29] MEDS: INSULIN NPH, HUMAN 100 UNIT/1 ML SUB-Q SCH (08:27)
--- NOTE | 2020-01-29 08:43 | Discharge Summary ---
Providers - Providers Date of Admission: 01/23/20 13:02 Date of discharge: 01/29/20 Attending physician: CASS TELLES 01/23/20 13:02 Consult to Physician [CONS] Stat Comment: Consulting Provider: SKYLAR DUEÑAS Physician Instructions: Reason For Exam: COVID PUI Primary care physician: [employer] ENGINEER Hospitalization Condition: Stable Hospital course: 54 years old female with history of morbid obesity, HTN, DM, COPD not on home O2 admitted on 01/23/2020 due to 3-day history of body aches, generalized malaise, dry cough, progressive shortness of breath. Patient was positive for COVID-19 with clear chest x-ray. ID was consulted and patient was initiated on empiric steroid and IV antisecretory therapy. She completed remedies for therapy total 5 days and ID recommended to continue on dexamethasone to complete total 10 days course. Patient was then discharged home in stable condition with home O2. She was instructed to remain self quarantine for 2 weeks. Daily course: 01/23: positive for covid 19. Continue Solu-Medrol 40 mg IV every 8 hours, Remdesivir. Obtain daily inflammatory markers - ferritin, Ddimer, CRP, LDH 01/24: cont Solu-Medrol 40 mg IV every 8 hours, Remdesivir day 2. need to assess for home O2 on discharge 01/25 patient is alert and oriented, offers no specific complaints except mild cough, denies chest pain or shortness of breath, denies any acute events overnight Denies fever or chills. Denies nausea or abdominal pain. Lab results reviewed. ID consult note reviewed 01/26 no acute events overnight per discussion with RN, patient offers no complaints when enquired via phone Lab results reviewed, potassium supplements discontinued, ID note reviewed 01/27: last dose of Remdesivir is tonight. will change solumedrol iv to dexamethasone po. if clinically stable d/c in the am. increase NPH dose to better control BG. 01/28: DC home with total 10 days of dexamethasone and home O2. Discharge diagnosis: Severe sepsis: - Present on admission with tachycardia, fever, hypoxia; secondary to severe COVID. COVID-19 PNA -consulted ID, completed treatment with Ramdesivir also placed on empiric steroid -Followed inflammatory marker and will complete dexamethasone total 10 days following discharge Acute on chronic hypoxic respiratory failure -O2 sat 84% on room air -Likely due to COPD exacerbation and COVID-19 COPD with exacerbation - Placed on empiric steroid and remdisevir, scheduled nebulizer breathing treatment and as needed - chest x-ray was unremarkable - Provided supplemental oxygen to keep oxygen saturation above 92% Morbid obesity -Dietary and exercise recommendation when medically stable Diabetes mellitus type 2 -Placed Consistent carb diet with sliding scale of insulin and long acting insulin - A1c 11.5 Hypertension -resumed home medications, IV hydralazine as needed - Provide DVT prophylaxis with Lovenox. Disposition: DC-01 TO HOME OR SELFCARE Time spent for discharge: 34 minutes Core Measure Documentation - Palliative Care Palliative Care/ Comfort Measures: Not Applicable - Core Measures Any of the following diagnoses?: none Exam - Physical Exam Narrative exam: GENERAL: well-developed and morbidly obese -[place] female lying on bed appeared to be in no discomfort. HEENT: Normocephalic. Atraumatic. No conjunctival congestion or icterus. Patient has moist mucous membranes. NECK: Supple. Trachea midline. CHEST/LUNGS: Coarse breath sounds auscultated bilaterally, breathing nonlabored. No wheezes crackles or rhonchi. HEART/CARDIOVASCULAR: Regular in rate and rhythm. S1 and S2 positive. ABDOMEN: Abdomen is soft, nontender. Patient has normal bowel sounds. SKIN: There is no rash. Warm and dry. NEURO: No focal motor deficit. Follows command. MUSCULOSKELETAL: No joint effusion or tenderness. EXTRIMITY: No edema, no cyanosis or clubbing. PSYCH: Cooperative. - Constitutional Vitals: Temp Pulse Resp BP Pulse Ox 98.3 F 84 18 131/62 91 01/29/20 06:02 01/29/20 06:02 01/29/20 06:02 01/29/20 06:02 01/29/20 06:02 Plan Activity: advance as tolerated Weight Bearing Status: Weight Bear as Tolerated Diet: diabetic Special Instructions: record blood sugar diary, home oxygen via Additional Instructions: remain self quarantine for 2 weeks Follow up with: PRIMARY MD MACKENZIE [Primary Care Provider] - 3-5 Days SKYLAR DUEÑAS MD [Staff Physician] - 7 Days Prescriptions: carvediloL [Coreg] 6.25 mg PO BID #60 tablet dexAMETHasone [Decadron] 6 mg PO Q24HR #7 tablet Insulin Regular, Human [HumuLIN R] 0 units SUB-Q ACHS #10 ml Insulin NPH, Human [NovoLIN N] 15 unit SUB-Q BIDDIAB 30 Days #10 ml Other Discharge Orders: Glucometer (Amb) Location: None Selected Glucometer supplies[Amb] Location: None Selected
[2020-01-29 09:06] LABS: BUN/Creatinine Ratio 30; Blood Urea Nitrogen 15 mg/dL (7-17); Calcium 8.5 mg/dL (8.4-10.2); Hemolysis Index 5
[2020-01-29] MEDS: PANTOPRAZOLE 40 MG TAB PO SCH (09:23)
[2020-01-29] MEDS: GABAPENTIN 300 MG CAP PO SCH (09:23)
[2020-01-29] MEDS: carvediloL 6.25 MG TAB PO SCH (09:23)
[2020-01-29] MEDS: ASPIRIN 81 MG TAB CHEW PO SCH (09:23)
[2020-01-29] MEDS: LISINOPRIL 5 MG TAB PO SCH (09:24)
[2020-01-29] MEDS: FLUTICASONE PROPIONATE NASAL SPRAY 16 GM NS SCH (09:24)
[2020-01-29] MEDS: amLODIPine 5 MG TAB PO SCH (09:24)
[2020-01-29] MEDS ORDERED: methylPREDNISolone Sod Succinate 40 MG/1 ML INJ IV SCH (10:00)
[2020-01-29] MEDS ORDERED: DEXAMETHASONE 2 MG TAB PO SCH (10:00)
[2020-01-29 13:35] VITALS: BP 120/72
== END 2020-01-29 14:00 | disposition home or self-care (01) | DRG 871 ==
LOC: ED 10:13 → 3A 13:02
PROVIDERS: ADMIT Internal Medicine; ATTEND Internal Medicine
DX: A41.89 Other specified sepsis (principal); U07.1 COVID-19; J96.01 Acute respiratory failure with hypoxia; J12.89 Other viral pneumonia; J44.1 Chronic obstructive pulmonary disease with (acute) exacerbation; Z68.42 Body mass index [BMI] 45.0-49.9, adult; R65.20 Severe sepsis without septic shock; I10 Essential (primary) hypertension; G89.29 Other chronic pain; M54.9 Dorsalgia, unspecified; E11.40 Type 2 diabetes mellitus with diabetic neuropathy, unspecified; F17.210 Nicotine dependence, cigarettes, uncomplicated; E66.01 Morbid (severe) obesity due to excess calories; Z86.73 Personal history of transient ischemic attack (TIA), and cerebral infarction without residual deficits; Z90.49 Acquired absence of other specified parts of digestive tract; Z83.3 Family history of diabetes mellitus; Z82.49 Family history of ischemic heart disease and other diseases of the circulatory system; Z79.4 Long term (current) use of insulin; Z88.6 Allergy status to analgesic agent; Z71.3 Dietary counseling and surveillance
CPT/HCPCS: 36415; 71045; 80048; 82140; 82728; 82947; 82962; 83036; 83615; 83880; 84145; 84484; 85025; 85027; 85379; 86140; 93005; 94640; G0378; A9270-GY; J0360; J0456; J0696; J1650; J1815; J2920; J7050; J8540; U0003-CS

== ENCOUNTER 2020-05-28 15:42 | Emergency (ER) | payer MEDICARE ==
--- NOTE | 2020-05-28 17:13 | Emergency Department Report ---
ED Shortness of Breath HPI - General Chief Complaint: Dyspnea/Respdistress Stated Complaint: SOB AND HEART ISSUES Time Seen by Provider: 05/28/20 16:12 Source: patient Mode of arrival: Ambulatory Limitations: No Limitations - History of Present Illness Initial Comments: 55-year-old female, history of COPD on 2 L O2, hypertension, diabetes, presents to ED with dyspnea on exertion x3 weeks. Patient reports associated mild cough. Patient denies any fever or chest pain. Patient reports she was diagnosed with COVID-19 back in January 2020. Has tested negative since. She denies any current known exposure to anyone who has tested positive for COVID-19. Patient has not had to increase her O2 requirement. Her O2 sats are currently 95% on her regular 2 L of O2. Patient also thinks symptoms may be due to her anxiety. MD Complaint: shortness of breath -: week(s) (3) Severity: moderate Consistency: intermittent Improves With: rest Worsens With: exertion Known History Of: COPD - Related Data Home Oxygen Therapy: Yes Home Oxygen Amount: 2 Liters Previous Rx's Medication Instructions Recorded Last Taken Type Naproxen [Naprosyn TAB] 500 mg PO BID PRN #60 tablet 03/19/17 01/23/20 Rx AtorvaSTATin [Lipitor] 40 mg PO QHS #30 tablet 05/13/17 01/23/20 Rx metFORMIN [Glucophage] 500 mg PO TID #60 tablet 10/26/17 01/23/20 Rx Fluticasone [Flonase] 1 spray NS QDAY #1 bottle 09/12/18 01/23/20 Rx Insulin NPH, Human [NovoLIN N] 15 unit SUB-Q BIDDIAB 30 Days #10 01/29/20 Unk nown Rx ml Insulin Regular, Human [HumuLIN R] 0 units SUB-Q ACHS #10 ml 01/29/20 Unknown Rx carvediloL [Coreg] 6.25 mg PO BID #60 tablet 01/29/20 Unknown Rx Albuterol Mdi (or & Nicu Only) 1 puff IH Q4-6H PRN #1 inha 04/06/20 Unknown Rx [ProAir HFA Inhaler] Aspirin [Aspirin BABY CHEW TAB] 81 mg PO QDAY tab.chew 04/06/20 Unknown Rx Benzonatate [Tessalon Perles] 100 mg PO Q8HR PRN capsule 04/06/20 Unknown Rx Gabapentin 300 mg PO BID capsule 04/06/20 Unknown Rx Insulin Glargine [Lantus VIAL] 35 units SUB-Q QHS units 04/06/20 Unknown Rx Insulin Lispro [Humalog] 0 unit SUB-Q ACHS vial 04/06/20 Unknown Rx Insulin Regular, Human 10 units SUB-Q ACHS 04/06/20 Unknown Rx Ipratropium/Albuterol Sulfate 1 ampul IH TIDRT #50 ampul.neb 04/06/20 Unknown Rx [DUONEB *Not for PRN Use*] Pantoprazole [Protonix TAB] 40 mg PO QDAY tablet 04/06/20 Unknown Rx carvediloL [Coreg] 6.25 mg PO BID tablet 04/06/20 Unknown Rx lisinopriL [Zestril TAB] 2.5 mg PO QDAY tablet 04/06/20 Unknown Rx metFORMIN [Glucophage] 500 mg PO TID tablet 04/06/20 Unknown Rx methylPREDNISolone [Medrol 4MG 4 mg PO QDAY #21 tab.ds.pk 04/06/20 Unknown Rx DOSEPAK (21 tabs)] Allergies Allergy/AdvReac Type Severity Reaction Status Date / Time codeine Allergy Itching Verified 02/05/16 09:46 ED Review of Systems ROS: Stated complaint: SOB AND HEART ISSUES Other details as noted in HPI Comment: All other systems reviewed and negative Constitutional: denies: chills, fever Respiratory: cough, SOB with exertion Cardiovascular: denies: chest pain ED Past Medical Hx - Past Medical History Hx Hypertension: Yes Hx CVA: Yes (Apr 2017, Left side weakness and left ear [id number]) Hx Congestive Heart Failure: No Hx Diabetes: Yes Hx Deep Vein Thrombosis: No Hx Arthritis: No Hx Asthma: No Hx COPD: Yes (2 liters home o2) Additional medical history: neuropathy- takes gabapentin, sleep apnea. pancreatitis - Surgical History Hx Cholecystectomy: Yes Additional Surgical History: - Social History Smoking Status: Current Every Day Smoker Substance Use Type: Alcohol - Medications Home Medications: Home Medications Medication Instructions Recorded Confirmed Last Taken Type Naproxen [Naprosyn TAB] 500 mg PO BID PRN #60 tablet 03/19/17 04/03/20 01/23/20 Rx AtorvaSTATin [Lipitor] 40 mg PO QHS #30 tablet 05/13/17 04/03/20 01/23/20 Rx metFORMIN [Glucophage] 500 mg PO TID #60 tablet 10/26/17 04/03/20 01/23/20 Rx Fluticasone [Flonase] 1 spray NS QDAY #1 bottle 09/12/18 04/03/20 01/23/20 Rx Insulin NPH, Human [NovoLIN N] 15 unit SUB-Q BIDDIAB 30 Days #10 01/29/20 04/03/20 Unknown Rx ml Insulin Regular, Human [HumuLIN R] 0 units SUB-Q ACHS #10 ml 01/29/20 04/03/20 Unknown Rx carvediloL [Coreg] 6.25 mg PO BID #60 tablet 01/29/20 04/03/20 Unknown Rx Albuterol Mdi (or & Nicu Only) 1 puff IH Q4-6H PRN #1 inha 04/06/20 Unknown Rx [ProAir HFA Inhaler] Aspirin [Aspirin BABY CHEW TAB] 81 mg PO QDAY tab.chew 04/06/20 Unknown Rx Benzonatate [Tessalon Perles] 100 mg PO Q8HR PRN capsule 04/06/20 Unknown Rx Gabapentin 300 mg PO BID capsule 04/06/20 Unknown Rx Insulin Glargine [Lantus VIAL] 35 units SUB-Q QHS units 04/06/20 Unknown Rx Insulin Lispro [Humalog] 0 unit SUB-Q ACHS vial 04/06/20 Unknown Rx Insulin Regular, Human 10 units SUB-Q ACHS 04/06/20 Unknown Rx Ipratropium/Albuterol Sulfate 1 ampul IH TIDRT #50 ampul.neb 04/06/20 Unknown Rx [DUONEB *Not for PRN Use*] Pantoprazole [Protonix TAB] 40 mg PO QDAY tablet 04/06/20 Unknown Rx carvediloL [Coreg] 6.25 mg PO BID tablet 04/06/20 Unknown Rx lisinopriL [Zestril TAB] 2.5 mg PO QDAY tablet 04/06/20 Unknown Rx metFORMIN [Glucophage] 500 mg PO TID tablet 04/06/20 Unknown Rx methylPREDNISolone [Medrol 4MG 4 mg PO QDAY #21 tab.ds.pk 04/06/20 Unknown Rx DOSEPAK (21 tabs)] ED Physical Exam - General Limitations: No Limitations General appearance: alert, in no apparent distress, obese - Head Head exam: Present: atraumatic, normocephalic - Eye Eye exam: Present: normal appearance, EOMI - ENT ENT exam: Present: mucous membranes moist - Neck Neck exam: Present: normal inspection - Respiratory Respiratory exam: Present: normal lung sounds bilaterally. Absent: respiratory distress - Cardiovascular Cardiovascular Exam: Present: regular rate, normal rhythm - GI/Abdominal GI/Abdominal exam: Present: soft. Absent: distended, tenderness - Extremities Exam Extremities exam: Present: normal inspection. Absent: pedal edema, calf tenderness - Neurological Exam Neurological exam: Present: alert, oriented X3 - Psychiatric Psychiatric exam: Present: normal affect, normal mood - Skin Skin exam: Present: warm, dry, intact, normal color ED Course Vital Signs 05/28/20 05/28/20 16:27 16:42 Temperature 98.7 F Pulse Rate 96 H Respiratory 21 Rate Blood Pressure 165/131 [Left] O2 Sat by Pulse 95 Oximetry ED Medical Decision Making - Lab Data Result diagrams: 05/28/20 16:55 05/28/20 16:55 - EKG Data -: EKG Interpreted by Me EKG shows normal: sinus rhythm, axis, intervals, QRS complexes - EKG Data When compared to previous EKG there are: no significant change Interpretation: no acute changes, other (lateral T wave inversion) - Radiology Data Radiology results: report reviewed, image reviewed - Medical Decision Making Patient reports she has appointment with her PCP on 06/05/2020 Critical care attestation.: If time is entered above; I have spent that time in minutes in the direct care of this critically ill patient, excluding procedure time. ED Disposition Clinical Impression: Dyspnea Disposition: DC-01 TO HOME OR SELFCARE Is pt being admited?: No Condition: Stable Instructions: Shortness of Breath, Adult, [id number] Referrals: PRIMARY CARE,MD [Primary Care Provider] - 3-5 Days Time of Disposition: 18:20
--- NOTE | 2020-05-28 17:27 | XRay Report ---
CHEST 1 VIEW 05/28/2020 4:18 PM INDICATION / CLINICAL INFORMATION: MAIN. COMPARISON: 04/02/2020. FINDINGS: SUPPORT DEVICES: None. HEART / MEDIASTINUM: Stable cardiomegaly. LUNGS / PLEURA: No significant pulmonary or pleural abnormality. No pneumothorax. ADDITIONAL FINDINGS: No significant additional findings. IMPRESSION: Stable cardiomegaly. Signer Name: Filipe Suh MD Signed: 05/28/2020 5:22 PM Workstation Name: [id number]
[2020-05-28 17:32] LABS: Blood Urea Nitrogen 9 mg/dL (7-17); Calcium 9.2 mg/dL (8.4-10.2); Hemolysis Index 11
[2020-05-28 17:34] LABS: INR 1.01 (0.87-1.13)
[2020-05-28 17:35] LABS: BUN/Creatinine Ratio 15; Partial Thromboplastin Time 28.6 Sec. (24.2-36.6)
[2020-05-28 17:42] LABS: Hematocrit 40.8 % (30.3-42.9); Hemoglobin 13.4 gm/dl (10.1-14.3); Mean Corpuscular HGB Conc 33 % (30-34); Mean Corpuscular Volume 96 fl (79-97); Platelet Count 358 K/mm3 (140-440); Red Blood Count 4.26 M/mm3 (3.65-5.03); Red Cell Distribution Width 14.1 % (13.2-15.2)
[2020-05-28 18:57] VITALS: BP 145/103
== END 2020-05-28 18:57 | disposition home or self-care (01) ==
LOC: ED 15:42
DX: R06.00 Dyspnea, unspecified (principal); I10 Essential (primary) hypertension; E11.9 Type 2 diabetes mellitus without complications; J44.9 Chronic obstructive pulmonary disease, unspecified; F17.200 Nicotine dependence, unspecified, uncomplicated; Z98.890 Other specified postprocedural states; Z79.4 Long term (current) use of insulin; Z79.899 Other long term (current) drug therapy; Z90.49 Acquired absence of other specified parts of digestive tract; Z88.8 Allergy status to other drugs, medicaments and biological substances
CPT/HCPCS: 36415; 71045; 80048; 83880; 84484; 85025; 85610; 85730; 93005

== ENCOUNTER 2020-07-20 08:36 | Emergency (ER) | payer MEDICARE ==
[2020-07-20 08:47] VITALS: BP 153/79
--- NOTE | 2020-07-20 13:46 | Emergency Department Report ---
ED General Adult HPI - General Chief complaint: Dyspnea/Respdistress Stated complaint: COPD/OUT OF OXYGEN Time Seen by Provider: 07/20/20 11:28 Source: patient Mode of arrival: Ambulatory Limitations: No Limitations - History of Present Illness Initial comments: Patient presents to the emergency department with a chief complaint of running out of O2 at home. Patient has been on oxygen via nasal cannula for the last 3 years has been using them over the last 2 to 3 months. Patient states this morning she ran out of her O2 and began to panic and came to the emergency department for help with attainment of oxygen. Patient denies chest pain, abdominal pain, or headache. -: Sudden Severity scale (0 -10): 0 Consistency: constant Improves with: none Worsens with: none Associated Symptoms: denies other symptoms Treatments Prior to Arrival: none - Related Data Home Medications Medication Instructions Recorded Confirmed Last Taken metFORMIN [Glucophage] 500 mg PO TID 06/17/20 06/17/20 Unknown Previous Rx's Medication Instructions Recorded Last Taken Type AtorvaSTATin [Lipitor] 40 mg PO QHS #30 tablet 05/13/17 01/23/20 Rx Fluticasone [Flonase] 1 spray NS QDAY #1 bottle 09/12/18 01/23/20 Rx Insulin NPH, Human [NovoLIN N] 15 unit SUB-Q BIDDIAB 30 Days #10 01/29/20 Unknown Rx ml Insulin Regular, Human [HumuLIN R] 0 units SUB-Q ACHS #10 ml 01/29/20 Unknown Rx Albuterol Mdi (or & Nicu Only) 1 puff IH Q4-6H PRN #1 inha 04/06/20 Unknown Rx [ProAir HFA Inhaler] Aspirin [Aspirin BABY CHEW TAB] 81 mg PO QDAY tab.chew 04/06/20 Unknown Rx Benzonatate [Tessalon Perles] 100 mg PO Q8HR PRN capsule 04/06/20 Unknown Rx Gabapentin 300 mg PO BID capsule 04/06/20 Unknown Rx Insulin Glargine [Lantus VIAL] 35 units SUB-Q QHS units 04/06/20 Unknown Rx Insulin Lispro [Humalog] 0 unit SUB-Q ACHS vial 04/06/20 Unknown Rx Insulin Regular, Human 10 units SUB-Q ACHS 04/06/20 Unknown Rx Ipratropium/Albuterol Sulfate 1 ampul IH TIDRT #50 ampul.neb 04/06/20 Unknown Rx [DUONEB *Not for PRN Use*] Pantoprazole [Protonix TAB] 40 mg PO QDAY tablet 04/06/20 Unknown Rx methylPREDNISolone [Medrol 4MG 4 mg PO QDAY #21 tab.ds.pk 04/06/20 Unknown Rx DOSEPAK (21 tabs)] amLODIPine [Norvasc] 10 mg PO DAILY #30 06/19/20 Unknown Rx Allergies Allergy/AdvReac Type Severity Reaction Status Date / Time codeine Allergy Itching Verified 02/05/16 09:46 ED Review of Systems ROS: Stated complaint: COPD/OUT OF OXYGEN Other details as noted in HPI Comment: All other systems reviewed and negative Constitutional: denies: chills, fever Eyes: denies: eye pain, eye discharge, vision change ENT: denies: ear pain, throat pain Respiratory: denies: cough, shortness of breath, wheezing Cardiovascular: denies: chest pain, palpitations Endocrine: no symptoms reported Gastrointestinal: denies: abdominal pain, nausea, diarrhea Genitourinary: denies: urgency, dysuria, discharge Musculoskeletal: denies: back pain, joint swelling, arthralgia Skin: denies: rash, lesions Neurological: denies: headache, weakness, paresthesias Psychiatric: denies: anxiety, depression Hematological/Lymphatic: denies: easy bleeding, easy bruising ED Past Medical Hx - Past Medical History Previous Medical History?: Yes Hx Hypertension: Yes Hx CVA: Yes (Apr 2017, Left side weakness and left ear [place]) Hx Congestive Heart Failure: Yes Hx Diabetes: Yes Hx Deep Vein Thrombosis: No Hx Arthritis: No Hx Asthma: No Hx COPD: Yes (2 liters home o2) Additional medical history: neuropathy- takes gabapentin, sleep apnea. pancreatitis - Surgical History Past Surgical History?: Yes Hx Cholecystectomy: Yes Additional Surgical History: - Social History Smoking Status: Never Smoker Substance Use Type: None - Medications Home Medications: Home Medications Medication Instructions Recorded Confirmed Last Taken Type AtorvaSTATin [Lipitor] 40 mg PO QHS #30 tablet 05/13/17 06/17/20 01/23/20 Rx Fluticasone [Flonase] 1 spray NS QDAY #1 bottle 09/12/18 06/17/20 01/23/20 Rx Insulin NPH, Human [NovoLIN N] 15 unit SUB-Q BIDDIAB 30 Days #10 01/29/20 06/17/20 Unknown Rx ml Insulin Regular, Human [HumuLIN R] 0 units SUB-Q ACHS #10 ml 01/29/20 06/17/20 Unknown Rx Albuterol Mdi (or & Nicu Only) 1 puff IH Q4-6H PRN #1 inha 04/06/20 06/17/20 Unknown Rx [ProAir HFA Inhaler] Aspirin [Aspirin BABY CHEW TAB] 81 mg PO QDAY tab.chew 04/06/20 06/17/20 Unknown Rx Benzonatate [Tessalon Perles] 100 mg PO Q8HR PRN capsule 04/06/20 06/17/20 Unknown Rx Gabapentin 300 mg PO BID capsule 04/06/20 06/17/20 Unknown Rx Insulin Glargine [Lantus VIAL] 35 units SUB-Q QHS units 04/06/20 06/17/20 Unknown Rx Insulin Lispro [Humalog] 0 unit SUB-Q ACHS vial 04/06/20 06/17/20 Unknown Rx Insulin Regular, Human 10 units SUB-Q ACHS 04/06/20 06/17/20 Unknown Rx Ipratropium/Albuterol Sulfate 1 ampul IH TIDRT #50 ampul.neb 04/06/20 06/17/20 Unknown Rx [DUONEB *Not for PRN Use*] Pantoprazole [Protonix TAB] 40 mg PO QDAY tablet 04/06/20 06/17/20 Unknown Rx methylPREDNISolone [Medrol 4MG 4 mg PO QDAY #21 tab.ds.pk 04/06/20 06/17/20 Unknown Rx DOSEPAK (21 tabs)] metFORMIN [Glucophage] 500 mg PO TID 06/17/20 06/17/20 Unknown History amLODIPine [Norvasc] 10 mg PO DAILY #30 06/19/20 Unknown Rx ED Physical Exam - General Limitations: No Limitations General appearance: alert, in no apparent distress - Head Head exam: Present: atraumatic, normocephalic - Eye Eye exam: Present: normal appearance - ENT ENT exam: Present: mucous membranes moist - Neck Neck exam: Present: normal inspection - Respiratory Respiratory exam: Present: normal lung sounds bilaterally. Absent: respiratory distress - Cardiovascular Cardiovascular Exam: Present: regular rate, normal rhythm. Absent: systolic murmur, diastolic murmur, rubs, gallop - GI/Abdominal GI/Abdominal exam: Present: soft, normal bowel sounds. Absent: distended, tenderness - Extremities Exam Extremities exam: Present: normal inspection - Back Exam Back exam: Present: normal inspection - Neurological Exam Neurological exam: Present: alert, oriented X3, CN II-XII intact. Absent: motor sensory deficit - Psychiatric Psychiatric exam: Present: normal affect, normal mood - Skin Skin exam: Present: warm, dry, intact, normal color. Absent: rash ED Course Vital Signs 07/20/20 08:43 Temperature 98.2 F Pulse Rate 93 H Respiratory 22 Rate Blood Pressure 153/79 O2 Sat by Pulse 93 Oximetry ED Medical Decision Making - Medical Decision Making Case management consulted and they reached out to the patient's O2 company and left a message with the on-call service Critical care attestation.: If time is entered above; I have spent that time in minutes in the direct care of this critically ill patient, excluding procedure time. ED Disposition Clinical Impression: Dependence on supplemental oxygen Disposition: DC-01 TO HOME OR SELFCARE Is pt being admited?: No Does the pt Need Aspirin: No Condition: Stable Additional Instructions: return if worse Referrals: PRIMARY CARE, [Primary Care Provider] - 3-5 Days MCKINLEY HUTTON MD [Staff Physician] - 3-5 Days SHIVANI WILLIS MD [Staff Physician] - 3-5 Days Time of Disposition: 13:49
== END 2020-07-20 15:49 | disposition home or self-care (01) ==
LOC: ED 08:36
DX: J44.9 Chronic obstructive pulmonary disease, unspecified (principal); Z99.81 Dependence on supplemental oxygen; I11.0 Hypertensive heart disease with heart failure; I50.9 Heart failure, unspecified; E11.9 Type 2 diabetes mellitus without complications; Z90.49 Acquired absence of other specified parts of digestive tract; Z98.890 Other specified postprocedural states; Z79.4 Long term (current) use of insulin; Z79.899 Other long term (current) drug therapy; Z88.8 Allergy status to other drugs, medicaments and biological substances
CPT/HCPCS: 99281

== ENCOUNTER 2020-07-23 20:24 | Emergency (ER) | payer MEDICARE ==
[2020-07-23] MEDS ORDERED: ASPIRIN 325 MG TAB PO ONE (23:03)
[2020-07-23 23:49] LABS: Basophils # (Auto) 0.1 K/mm3 (0.0-0.1); Basophils % (Auto) 1.6 % (0.0-1.8); Eosinophils # (Auto) 0.2 K/mm3 (0.0-0.4); Eosinophils % (Auto) 2.9 % (0.0-4.3); Hematocrit 37.3 % (30.3-42.9); Lymphocytes # (Auto) 1.7 K/mm3 (1.2-5.4); Lymphocytes % (Auto) 22.9 % (13.4-35.0); Mean Corpuscular HGB Conc 32 % (30-34); Mean Corpuscular Volume 95 fl (79-97); Monocytes # (Auto) 0.4 K/mm3 (0.0-0.8); Monocytes % (Auto) 5.6 % (0.0-7.3); Platelet Count 296 K/mm3 (140-440); Red Blood Count 3.93 M/mm3 (3.65-5.03); Red Cell Distribution Width 14.6 % (13.2-15.2)
[2020-07-23 23:58] LABS: Blood Urea Nitrogen 15 mg/dL (7-17); Calcium 9.4 mg/dL (8.4-10.2); Hemolysis Index 12
[2020-07-24 00:04] LABS: BUN/Creatinine Ratio 30
--- NOTE | 2020-07-24 00:47 | XRay Report ---
CHEST 1 VIEW 2334 INDICATION / CLINICAL INFORMATION: Chest Pain COMPARISON: 06/17/2020 FINDINGS: SUPPORT DEVICES: None HEART / MEDIASTINUM: Mild cardiomegaly LUNGS / PLEURA: Slightly congested appearance is seen with a suggestion of slight perihilar edema. No definite pneumonic infiltrates are noted. No pneumothorax. ADDITIONAL FINDINGS: No significant additional findings. IMPRESSION: Congestion Signer Name: Oneal Niño MD Signed: 07/24/2020 12:43 AM Workstation Name: [id number]
[2020-07-24] MEDS ORDERED: FUROSEMIDE 40 MG/4 ML INJ IV ONE (03:53)
[2020-07-24 05:25] LABS: ABG Base Excess 9.4 mmol/L (-2.0-3.0); ABG HCO3 38.4 mmol/L (20.0-26.0); ABG Methemoglobin 0.5 % (0.0-1.5); ABG Oxygen Saturation 86.6 % (95.0-99.0); ABG PCO2 75.8 mm Hg; ABG PH 7.323 pH Units (7.350-7.450); ABG PO2 52.9 mm Hg (80.0-90.0)
--- NOTE | 2020-07-24 05:36 | Emergency Department Report ---
ED Shortness of Breath HPI - General Chief Complaint: Dyspnea/Respdistress Stated Complaint: LEGS SWOLLEN Time Seen by Provider: 07/24/20 03:35 Source: patient Mode of arrival: Ambulatory Limitations: Physical Limitation - History of Present Illness MD Complaint: shortness of breath, cough -: Gradual Pain Scale: 4 Quality: dull Consistency: intermittent Improves With: nothing Worsens With: lying flat Known History Of: COPD, congestive heart failure Context: elevated blood glucose Associated Symptoms: lower extremity pain, lower abdominal swelling Treatments Prior to Arrival: oxygen - Related Data Home Oxygen Therapy: Yes Home Oxygen Amount: 2 Liters Home Medications Medication Instructions Recorded Confirmed Last Taken metFORMIN [Glucophage] 500 mg PO TID 06/17/20 06/17/20 Unknown Previous Rx's Medication Instructions Recorded Last Taken Type AtorvaSTATin [Lipitor] 40 mg PO QHS #30 tablet 05/13/17 01/23/20 Rx Fluticasone [Flonase] 1 spray NS QDAY #1 bottle 09/12/18 01/23/20 Rx Insulin NPH, Human [NovoLIN N] 15 unit SUB-Q BIDDIAB 30 Days #10 01/29/20 Unknown Rx ml Insulin Regular, Human [HumuLIN R] 0 units SUB-Q ACHS #10 ml 01/29/20 Unknown Rx Albuterol Mdi (or & Nicu Only) 1 puff IH Q4-6H PRN #1 inha 04/06/20 Unknown Rx [ProAir HFA Inhaler] Aspirin [Aspirin BABY CHEW TAB] 81 mg PO QDAY tab.chew 04/06/20 Unknown Rx Benzonatate [Tessalon Perles] 100 mg PO Q8HR PRN capsule 04/06/20 Unknown Rx Gabapentin 300 mg PO BID capsule 04/06/20 Unknown Rx Insulin Glargine [Lantus VIAL] 35 units SUB-Q QHS units 04/06/20 Unknown Rx Insulin Lispro [Humalog] 0 unit SUB-Q ACHS vial 04/06/20 Unknown Rx Insulin Regular, Human 10 units SUB-Q ACHS 04/06/20 Unknown Rx Ipratropium/Albuterol Sulfate 1 ampul IH TIDRT #50 ampul.neb 04/06/20 Unknown Rx [DUONEB *Not for PRN Use*] Pantoprazole [Protonix TAB] 40 mg PO QDAY tablet 04/06/20 Unknown Rx methylPREDNISolone [Medrol 4MG 4 mg PO QDAY #21 tab.ds.pk 04/06/20 Unknown Rx DOSEPAK (21 tabs)] amLODIPine [Norvasc] 10 mg PO DAILY #30 06/19/20 Unknown Rx Furosemide [Lasix TAB] 20 mg PO QDAY #30 tablet 07/24/20 Unknown Rx Allergies Allergy/AdvReac Type Severity Reaction Status Date / Time codeine Allergy Itching Verified 02/05/16 09:46 ED Review of Systems ROS: Stated complaint: LEGS SWOLLEN Other details as noted in HPI Constitutional: denies: chills, fever Eyes: denies: eye pain, eye discharge, vision change ENT: denies: ear pain, throat pain Respiratory: denies: cough, shortness of breath, wheezing Cardiovascular: dyspnea on exertion, orthopnea, edema, paroxysmal nocturnal dyspnea. denies: chest pain, palpitations Endocrine: no symptoms reported Gastrointestinal: denies: abdominal pain, nausea, diarrhea Genitourinary: denies: urgency, dysuria, discharge Musculoskeletal: denies: back pain, joint swelling, arthralgia Skin: denies: rash, lesions Neurological: denies: headache, weakness, paresthesias Psychiatric: denies: anxiety, depression Hematological/Lymphatic: denies: easy bleeding, easy bruising ED Past Medical Hx - Past Medical History Previous Medical History?: Yes Hx Hypertension: Yes Hx CVA: Yes (Apr 2017, Left side weakness and left ear [place]) Hx Congestive Heart Failure: Yes Hx Diabetes: Yes Hx Deep Vein Thrombosis: No Hx Arthritis: No Hx Psychiatric Treatment: Yes (Anxiety) Hx Asthma: No Hx COPD: Yes (2 liters home o2) Additional medical history: neuropathy- takes gabapentin, sleep apnea. pancreatitis - Surgical History Past Surgical History?: Yes Hx Cholecystectomy: Yes Additional Surgical History: - Social History Smoking Status: Former Smoker Substance Use Type: None - Medications Home Medications: Home Medications Medication Instructions Recorded Confirmed Last Taken Type AtorvaSTATin [Lipitor] 40 mg PO QHS #30 tablet 05/13/17 06/17/20 01/23/20 Rx Fluticasone [Flonase] 1 spray NS QDAY #1 bottle 09/12/18 06/17/20 01/23/20 Rx Insulin NPH, Human [NovoLIN N] 15 unit SUB-Q BIDDIAB 30 Days #10 01/29/20 06/17/20 Unknown Rx ml Insulin Regular, Human [HumuLIN R] 0 units SUB-Q ACHS #10 ml 01/29/20 06/17/20 Unknown Rx Albuterol Mdi (or & Nicu Only) 1 puff IH Q4-6H PRN #1 inha 04/06/20 06/17/20 Unknown Rx [ProAir HFA Inhaler] Aspirin [Aspirin BABY CHEW TAB] 81 mg PO QDAY tab.chew 04/06/20 06/17/20 Unknown Rx Benzonatate [Tessalon Perles] 100 mg PO Q8HR PRN capsule 04/06/20 06/17/20 Unknown Rx Gabapentin 300 mg PO BID capsule 04/06/20 06/17/20 Unknown Rx Insulin Glargine [Lantus VIAL] 35 units SUB-Q QHS units 04/06/20 06/17/20 Unknown Rx Insulin Lispro [Humalog] 0 unit SUB-Q ACHS vial 04/06/20 06/17/20 Unknown Rx Insulin Regular, Human 10 units SUB-Q ACHS 04/06/20 06/17/20 Unknown Rx Ipratropium/Albuterol Sulfate 1 ampul IH TIDRT #50 ampul.neb 04/06/20 06/17/20 Unknown Rx [DUONEB *Not for PRN Use*] Pantoprazole [Protonix TAB] 40 mg PO QDAY tablet 04/06/20 06/17/20 Unknown Rx methylPREDNISolone [Medrol 4MG 4 mg PO QDAY #21 tab.ds.pk 04/06/20 06/17/20 Unknown Rx DOSEPAK (21 tabs)] metFORMIN [Glucophage] 500 mg PO TID 06/17/20 06/17/20 Unknown History amLODIPine [Norvasc] 10 mg PO DAILY #30 06/19/20 Unknown Rx Furosemide [Lasix TAB] 20 mg PO QDAY #30 tablet 07/24/20 Unknown Rx ED Physical Exam - General Limitations: Physical Limitation General appearance: alert, in no apparent distress - Head Head exam: Present: atraumatic, normocephalic - Eye Eye exam: Present: normal appearance - ENT ENT exam: Present: mucous membranes moist - Neck Neck exam: Present: normal inspection - Respiratory Respiratory exam: Present: normal lung sounds bilaterally. Absent: respiratory distress - Cardiovascular Cardiovascular Exam: Present: regular rate, normal rhythm, JVD (mild). Absent: systolic murmur, diastolic murmur, rubs, gallop - GI/Abdominal GI/Abdominal exam: Present: soft, normal bowel sounds - Extremities Exam Extremities exam: Present: pedal edema - Back Exam Back exam: Present: normal inspection - Neurological Exam Neurological exam: Present: alert, oriented X3 - Psychiatric Psychiatric exam: Present: normal affect, normal mood - Skin Skin exam: Present: warm, dry, intact, normal color. Absent: rash ED Course Vital Signs 07/23/20 07/24/20 07/24/20 22:53 03:14 03:15 Temperature 98.3 F Pulse Rate 94 H 77 78 Respiratory 18 17 19 Rate Blood Pressure 145/61 139/75 O2 Sat by Pulse 96 93 91 Oximetry ED Medical Decision Making - Lab Data Result diagrams: 07/23/20 23:11 07/23/20 23:11 - EKG Data -: EKG Interpreted by Me EKG shows normal: ST-T waves Rate: normal - EKG Data When compared to previous EKG there are: no significant change Interpretation: no acute changes - Radiology Data Radiology results: report reviewed - Medical Decision Making received lasix, much improved, sats greater than 96 on 2 liters. will d/c with f/u with pcp in am. - Differential Diagnosis chf exacerbation, copd, acute bronchitis Critical care attestation.: If time is entered above; I have spent that time in minutes in the direct care of this critically ill patient, excluding procedure time. ED Disposition Clinical Impression: Acute diastolic CHF (congestive heart failure) Disposition: DC-01 TO HOME OR SELFCARE Is pt being admited?: No Does the pt Need Aspirin: No Condition: Stable Prescriptions: Furosemide [Lasix TAB] 20 mg PO QDAY #30 tablet Referrals: BK SCHAFER MD [Primary Care Provider] - 3-5 Days
[2020-07-24 06:04] VITALS: BP 133/65
== END 2020-07-24 05:30 | disposition home or self-care (01) ==
LOC: ED 20:24
DX: I11.0 Hypertensive heart disease with heart failure (principal); I50.31 Acute diastolic (congestive) heart failure; E11.9 Type 2 diabetes mellitus without complications; F41.9 Anxiety disorder, unspecified; J44.9 Chronic obstructive pulmonary disease, unspecified; Z90.49 Acquired absence of other specified parts of digestive tract; Z98.890 Other specified postprocedural states; Z87.891 Personal history of nicotine dependence; Z79.4 Long term (current) use of insulin; Z79.899 Other long term (current) drug therapy; Z88.8 Allergy status to other drugs, medicaments and biological substances
CPT/HCPCS: 36415; 71045; 80048; 82803; 83880; 84484; 85025; 93005; 96374; 99284; J1940

== ENCOUNTER 2021-01-26 16:47 | Observation (INO) | payer MEDICARE ==
[2021-01-26] MEDS ORDERED: ASPIRIN 81 MG TAB CHEW PO ONE (21:21)
--- NOTE | 2021-01-26 21:26 | Emergency Department Report ---
ED Chest Pain HPI - General Chief Complaint: Chest Pain Stated Complaint: CHEST PAIN LEG BACK Time Seen by Provider: 01/26/21 21:12 Source: patient Mode of arrival: Wheelchair Limitations: No Limitations - History of Present Illness Initial Comments: Patient is 55 years old morbidly obese female with history of congestive heart failure, COPD, hypertension and diabetes. Patient presented to the ER complaining of left-sided chest pain described as sharp and dull aching pain started last night. Patient also complaining of shortness of breath. Patient denied any fever or chills. She also reported coughing with greenish sputum. MD Complaint: chest pain -: Last night Onset: during rest Pain Location: left chest Pain Radiation: none Severity: moderate Severity scale (0 -10): 5 Quality: sharp, dull Consistency: intermittent - Related Data Home Medications Medication Instructions Recorded Confirmed Last Taken metFORMIN [Glucophage] 500 mg PO TID 06/17/20 06/17/20 Unknown Previous Rx's Medication Instructions Recorded Last Taken Type AtorvaSTATin [Lipitor] 40 mg PO QHS #30 tablet 05/13/17 01/23/20 Rx Fluticasone [Flonase] 1 spray NS QDAY #1 bottle 09/12/18 01/23/20 Rx Insulin NPH, Human [NovoLIN N] 15 unit SUB-Q BIDDIAB 30 Days #10 01/29/20 Unknown Rx ml Insulin Regular, Human [HumuLIN R] 0 units SUB-Q ACHS #10 ml 01/29/20 Unknown Rx Albuterol Mdi (or & Nicu Only) 1 puff IH Q4-6H PRN #1 inha 04/06/20 Unknown Rx [ProAir HFA Inhaler] Aspirin [Aspirin BABY CHEW TAB] 81 mg PO QDAY tab.chew 04/06/20 Unknown Rx Benzonatate [Tessalon Perles] 100 mg PO Q8HR PRN capsule 04/06/20 Unknown Rx Gabapentin 300 mg PO BID capsule 04/06/20 Unknown Rx Insulin Glargine [Lantus VIAL] 35 units SUB-Q QHS units 04/06/20 Unknown Rx Insulin Lispro [Humalog] 0 unit SUB-Q ACHS vial 04/06/20 Unknown Rx Insulin Regular, Human 10 units SUB-Q ACHS 04/06/20 Unknown Rx Ipratropium/Albuterol Sulfate 1 ampul IH TIDRT #50 ampul.neb 04/06/20 Unknown Rx [DUONEB *Not for PRN Use*] Pantoprazole [Protonix TAB] 40 mg PO QDAY tablet 04/06/20 Unknown Rx methylPREDNISolone [Medrol 4MG 4 mg PO QDAY #21 tab.ds.pk 04/06/20 Unknown Rx DOSEPAK (21 tabs)] amLODIPine [Norvasc] 10 mg PO DAILY #30 06/19/20 Unknown Rx Furosemide [Lasix TAB] 20 mg PO QDAY #30 tablet 07/24/20 Unknown Rx Allergies Allergy/AdvReac Type Severity Reaction Status Date / Time codeine Allergy Itching Verified 02/05/16 09:46 Heart Score - HEART Score History: Moderately suspicious EKG: Non-specific Age: > 65 Risk factors: > 3 risk factors or hx of atherosclerotic disease Troponin: < normal limit HEART Score: 6 - EKG Read Time Time EKG Completed: 17:10 EKG Read Time: 17:17 - Critical Actions Critical Actions: 4-6 pts:12-16.6% risk of adverse cardiac event. Should be admitted ED Review of Systems ROS: Stated complaint: CHEST PAIN LEG BACK Other details as noted in HPI Comment: All other systems reviewed and negative Constitutional: denies: chills, fever Respiratory: cough, orthopnea, shortness of breath, SOB with exertion, SOB at rest. denies: wheezing Cardiovascular: chest pain, dyspnea on exertion, orthopnea. denies: palpitations Gastrointestinal: denies: abdominal pain, nausea, vomiting, diarrhea, constipation, hematemesis, melena Musculoskeletal: denies: back pain Neurological: denies: headache, weakness, numbness, paresthesias, confusion ED Past Medical Hx - Past Medical History Previous Medical History?: Yes Hx Hypertension: Yes Hx CVA: Yes (Apr 2017, Left side weakness and left ear [place]) Hx Congestive Heart Failure: Yes Hx Diabetes: Yes Hx Deep Vein Thrombosis: No Hx Arthritis: No Hx Psychiatric Treatment: Yes (Anxiety) Hx Asthma: No Hx COPD: Yes (2 liters home o2) Additional medical history: neuropathy- takes gabapentin, sleep apnea. pancreatitis - Surgical History Past Surgical History?: Yes Hx Cholecystectomy: Yes Additional Surgical History: - Social History Smoking Status: Former Smoker Substance Use Type: None - Medications Home Medications: Home Medications Medication Instructions Recorded Confirmed Last Taken Type AtorvaSTATin [Lipitor] 40 mg PO QHS #30 tablet 05/13/17 06/17/20 01/23/20 Rx Fluticasone [Flonase] 1 spray NS QDAY #1 bottle 09/12/18 06/17/20 01/23/20 Rx Insulin NPH, Human [NovoLIN N] 15 unit SUB-Q BIDDIAB 30 Days #10 01/29/20 06/17/20 Unknown Rx ml Insulin Regular, Human [HumuLIN R] 0 units SUB-Q ACHS #10 ml 01/29/20 06/17/20 Unknown Rx Albuterol Mdi (or & Nicu Only) 1 puff IH Q4-6H PRN #1 inha 04/06/20 06/17/20 Unknown Rx [ProAir HFA Inhaler] Aspirin [Aspirin BABY CHEW TAB] 81 mg PO QDAY tab.chew 04/06/20 06/17/20 Unknown Rx Benzonatate [Tessalon Perles] 100 mg PO Q8HR PRN capsule 04/06/20 06/17/20 Unknown Rx Gabapentin 300 mg PO BID capsule 04/06/20 06/17/20 Unknown Rx Insulin Glargine [Lantus VIAL] 35 units SUB-Q QHS units 04/06/20 06/17/20 Unknown Rx Insulin Lispro [Humalog] 0 unit SUB-Q ACHS vial 04/06/20 06/17/20 Unknown Rx Insulin Regular, Human 10 units SUB-Q ACHS 04/06/20 06/17/20 Unknown Rx Ipratropium/Albuterol Sulfate 1 ampul IH TIDRT #50 ampul.neb 04/06/20 06/17/20 Unknown Rx [DUONEB *Not for PRN Use*] Pantoprazole [Protonix TAB] 40 mg PO QDAY tablet 04/06/20 06/17/20 Unknown Rx methylPREDNISolone [Medrol 4MG 4 mg PO QDAY #21 tab.ds.pk 04/06/20 06/17/20 Unknown Rx DOSEPAK (21 tabs)] metFORMIN [Glucophage] 500 mg PO TID 06/17/20 06/17/20 Unknown History amLODIPine [Norvasc] 10 mg PO DAILY #30 06/19/20 Unknown Rx Furosemide [Lasix TAB] 20 mg PO QDAY #30 tablet 07/24/20 Unknown Rx ED Physical Exam - General Limitations: No Limitations General appearance: alert, in no apparent distress - Head Head exam: Present: atraumatic, normocephalic, normal inspection - Eye Eye exam: Present: normal appearance, PERRL - ENT ENT exam: Present: normal exam, normal orophraynx, mucous membranes moist - Neck Neck exam: Present: normal inspection, full ROM. Absent: tenderness, meningismus - Respiratory Respiratory exam: Present: normal lung sounds bilaterally - Cardiovascular Cardiovascular Exam: Present: regular rate, normal rhythm, normal heart sounds - GI/Abdominal GI/Abdominal exam: Present: soft, normal bowel sounds. Absent: distended, te nderness, guarding, rebound, rigid, organomegaly, mass, bruit, pulsatile mass, hernia - Extremities Exam Extremities exam: Present: normal inspection, full ROM, normal capillary refill, pedal edema. Absent: calf tenderness - Back Exam Back exam: Present: normal inspection, full ROM. Absent: CVA tenderness (R), CVA tenderness (L) - Neurological Exam Neurological exam: Present: alert, oriented X3, CN II-XII intact, normal gait, reflexes normal. Absent: motor sensory deficit - Psychiatric Psychiatric exam: Present: normal mood - Skin Skin exam: Present: warm, intact, normal color ED Course Vital Signs 01/26/21 01/26/21 01/26/21 17:04 21:15 21:31 Temperature 98.6 F Pulse Rate 80 88 80 Respiratory 20 17 22 Rate Blood Pressure 149/69 134/58 149/75 O2 Sat by Pulse 96 99 98 Oximetry 01/26/21 21:45 Temperature Pulse Rate Respiratory Rate Blood Pressure 136/62 O2 Sat by Pulse 100 Oximetry ED Medical Decision Making - Lab Data Result diagrams: 01/26/21 21:42 01/26/21 21:42 - EKG Data -: EKG Interpreted by Ri EKG shows normal: sinus rhythm Rate: normal - EKG Data Interpretation: no acute changes - Radiology Data Radiology results: report reviewed - Medical Decision Making Patient is 55 years old morbidly obese female with history of congestive heart failure, COPD, hypertension and diabetes. Patient presented to the ER complaining of left-sided chest pain described as sharp and dull aching pain started last night. Patient also complaining of shortness of breath. Patient denied any fever or chills. She also reported coughing with greenish sputum. EKG is unremarkable. Chest x-ray is negative for acute finding. Labs reviewed and is unremarkable including a negative troponin. Patient received aspirin. I discussed the patient with Dr. Kim, he agreed to admit the patient to medical service for further management. Critical care attestation.: If time is entered above; I have spent that time in minutes in the direct care of this critically ill patient, excluding procedure time. ED Disposition Clinical Impression: Acute chest pain Disposition: OP ADMIT IP TO THIS HOSP Is pt being admited?: Yes Condition: Stable Instructions: Chest Pain (ED) Referrals: PRIMARY CARE, [Primary Care Provider] - 3-5 Days
[2021-01-26 21:52] LABS: Basophils # (Auto) 0.1 K/mm3 (0.0-0.1); Basophils % (Auto) 1.1 % (0.0-1.8); Eosinophils # (Auto) 0.1 K/mm3 (0.0-0.4); Eosinophils % (Auto) 1.9 % (0.0-4.3); Hematocrit 37.3 % (30.3-42.9); Hemoglobin 12.6 gm/dl (10.1-14.3); Lymphocytes # (Auto) 2.1 K/mm3 (1.2-5.4); Lymphocytes % (Auto) 27.9 % (13.4-35.0); Mean Corpuscular HGB Conc 34 % (30-34); Mean Corpuscular Volume 97 fl (79-97); Monocytes # (Auto) 0.5 K/mm3 (0.0-0.8); Monocytes % (Auto) 5.9 % (0.0-7.3); Platelet Count 326 K/mm3 (140-440); Red Blood Count 3.86 M/mm3 (3.65-5.03); Red Cell Distribution Width 12.6 % (13.2-15.2)
--- NOTE | 2021-01-26 22:00 | XRay Report ---
CHEST 1 VIEW 01/26/2021 8:46 PM INDICATION / CLINICAL INFORMATION: Chest Pain. COMPARISON: 07/23/2020 FINDINGS: SUPPORT DEVICES: None. HEART / MEDIASTINUM: Stable cardiomegaly. Increasing prominence right hilum. The patient has partiall y rotated. LUNGS / PLEURA: No significant pulmonary or pleural abnormality. No pneumothorax. ADDITIONAL FINDINGS: No significant additional findings. IMPRESSION: 1. Cardiomegaly. 2. No infiltrate. 3. Increasing prominence of the right hilum. Follow-up PA and lateral chest is recommended. Signer Name: Filipe Suh MD Signed: 01/26/2021 9:56 PM Workstation Name: [id number]
[2021-01-26 22:02] LABS: INR 1.04 (0.87-1.13)
[2021-01-26 22:03] LABS: Partial Thromboplastin Time 28.6 Sec. (24.2-36.6)
[2021-01-26 22:09] LABS: Blood Urea Nitrogen 14 mg/dL (7-17); Calcium 9.7 mg/dL (8.4-10.2); Hemolysis Index 8
[2021-01-26 22:13] LABS: Alanine Aminotransferase 27 units/L (7-56); Albumin 4.1 g/dL (3.9-5)
[2021-01-26 22:18] LABS: Bilirubin,Direct < 0.2 mg/dL (0-0.2)
[2021-01-26 22:19] LABS: BUN/Creatinine Ratio 28
[2021-01-26] MEDS ORDERED: DEXTROSE 50% IN WATER (25GM) 50 ML SYRINGE IV PRN (22:44)
[2021-01-26] MEDS ORDERED: MAGNESIUM HYDROXIDE (MOM) ORAL LIQD UDC PO PRN (22:44)
[2021-01-26] MEDS ORDERED: NITROGLYCERIN 0.4 MG TAB SUBL SL PRN (22:44)
[2021-01-26] MEDS ORDERED: ONDANSETRON 4 MG/2 ML INJ IV PRN (22:44)
[2021-01-26] MEDS ORDERED: ACETAMINOPHEN 325 MG TAB PO PRN ×2 (22:44)
--- NOTE | 2021-01-26 22:56 | History and Physical Report ---
History of Present Illness Date of examination: 01/26/21 Date of admission: 01/26/21 22:32 Chief complaint: Chest Pain History of present illness: 55-year-old female with known history of COPD, congestive heart failure, hypertension, and diabetes mellitus presenting to the emergency room today complaining of left-sided chest pain. Pain was said to have started less than 24 hours ago and it has been intermittent. Pain is sharp and at times a dull ache on the left side of her chest. She has had actually associated shortness of breath. No no relieving or exacerbating factor. She denies any headache or dizziness, denies any diaphoresis. Denies any nausea vomiting and denies any abdominal pain. She has had some cough productive of some greenish sputum but denies any fever or chills. Patient denies any sick contacts and no recent travel. Denies contact with anyone with COVID-19. Work-up in the emergency room today chest x-ray was negative for an acute process, troponin was also negative. EKG did not show any ischemic changes. Patient has been admitted for chest pain evaluation. Past History Past Medical History: COPD, diabetes, heart failure, hypertension, hyperlipidemia, stroke (With left sided weakness), other (Anxiety,sleep apnea,pancreatitis,neuropathy) Past Surgical History: cholecystectomy, Social history: smoking (Former Smoker.) Family history: no significant family history Medications and Allergies Allergies Allergy/AdvReac Type Severity Reaction Status Date / Time codeine Allergy Itching Verified 02/05/16 09:46 Home Medications Medication Instructions Recorded Confirmed Last Taken Type AtorvaSTATin [Lipitor] 40 mg PO QHS #30 tablet 05/13/17 06/17/20 01/23/20 Rx Fluticasone [Flonase] 1 spray NS QDAY #1 bottle 09/12/18 06/17/20 01/23/20 Rx Insulin NPH, Human [NovoLIN N] 15 unit SUB-Q BIDDIAB 30 Days #10 01/29/20 06/17/20 Unknown Rx ml Insulin Regular, Human [HumuLIN R] 0 units SUB-Q ACHS #10 ml 01/29/20 06/17/20 Unknown Rx Albuterol Mdi (or & Nicu Only) 1 puff IH Q4-6H PRN #1 inha 04/06/20 06/17/20 Unknown Rx [ProAir HFA Inhaler] Aspirin [Aspirin BABY CHEW TAB] 81 mg PO QDAY tab.chew 04/06/20 06/17/20 Unknown Rx Benzonatate [Tessalon Perles] 100 mg PO Q8HR PRN capsule 04/06/20 06/17/20 Unknown Rx Gabapentin 300 mg PO BID capsule 04/06/20 06/17/20 Unknown Rx Insulin Glargine [Lantus VIAL] 35 units SUB-Q QHS units 04/06/20 06/17/20 Unknown Rx Insulin Lispro [Humalog] 0 unit SUB-Q ACHS vial 04/06/20 06/17/20 Unknown Rx Insulin Regular, Human 10 units SUB-Q ACHS 04/06/20 06/17/20 Unknown Rx Ipratropium/Albuterol Sulfate 1 ampul IH TIDRT #50 ampul.neb 04/06/20 06/17/20 Unknown Rx [DUONEB *Not for PRN Use*] Pantoprazole [Protonix TAB] 40 mg PO QDAY tablet 04/06/20 06/17/20 Unknown Rx methylPREDNISolone [Medrol 4MG 4 mg PO QDAY #21 tab.ds.pk 04/06/20 06/17/20 Unknown Rx DOSEPAK (21 tabs)] metFORMIN [Glucophage] 500 mg PO TID 06/17/20 06/17/20 Unknown History amLODIPine [Norvasc] 10 mg PO DAILY #30 06/19/20 Unknown Rx Furosemide [Lasix TAB] 20 mg PO QDAY #30 tablet 07/24/20 Unknown Rx Active Meds: Active Medications Acetaminophen (Acetaminophen 325 Mg Tab) 650 mg PO Q6H PRN PRN Reason: Pain, Mild (1-3) Acetaminophen (Acetaminophen 325 Mg Tab) 650 mg PO Q4H PRN PRN Reason: Pain MILD(1-3)/Fever >100.5/AHN Aspirin (Aspirin Ec 325 Mg Tab) 325 mg PO QDAY ROLY Dextrose (Dextrose 50% In Water (25gm) 50 Ml Syringe) 50 ml IV Q30MIN PRN; Protocol PRN Reason: Hypoglycemia Ondansetron HCl (Ondansetron 4 Mg/2 Ml Inj) 4 mg IV Q8H PRN PRN Reason: Nausea And Vomiting Sodium Chloride (Sodium Chloride 0.9% 10 Ml Flush Syringe) 10 ml IV PRN PRN PRN Reason: LINE FLUSH Sodium Chloride (Sodium Chloride 0.9% 10 Ml Flush Syringe) 10 ml IV BID ROLY Sodium Chloride (Sodium Chloride 0.9% 10 Ml Flush Syringe) 10 ml IV PRN PRN PRN Reason: LINE FLUSH Review of Systems Constitutional: no fever, no chills Ears, nose, mouth and throat: no nasal congestion, no sore throat Cardiovascular: chest pain, no palpitations Respiratory: no cough, no shortness of breath Gastrointestinal: no abdominal pain, no nausea, no vomiting, no diarrhea Genitourinary Female: no flank pain, no dysuria, no hematuria Musculoskeletal: no neck pain, no low back pain Integumentary: no rash, no pruritis Neurological: no headaches, no confusion Psychiatric: no anxiety, no depression Endocrine: no polydipsia, no polyuria, no nocturia Exam - Constitutional Vitals: Temp Pulse Resp BP Pulse Ox 98.6 F 80 22 136/62 100 01/26/21 17:04 01/26/21 21:31 01/26/21 21:31 01/26/21 21:45 01/26/21 21:45 General appearance: Present: no acute distress, obese - EENT Eyes: Present: PERRL, EOM intact. Absent: scleral icterus ENT: hearing intact, clear oral mucosa, dentition normal - Neck Neck: Present: supple, normal ROM - Respiratory Respiratory effort: normal Respiratory: bilateral: CTA - Cardiovascular Rhythm: regular Heart Sounds: Present: S1 & S2. Absent: gallop, systolic murmur, diastolic murmur, rub, click - Extremities Extremities: no ischemia, pulses intact, pulses symmetrical, No edema, normal temperature, normal color, Full ROM Peripheral Pulses: within normal limits - Abdominal General gastrointestinal: Present: soft, non-tender, non-distended, normal bowel sounds. Absent: mass - Integumentary Integumentary: Present: clear, warm, dry, normal turgor. Absent: rash - Musculoskeletal Musculoskeletal: strength equal bilaterally - Psychiatric Psychiatric: appropriate mood/affect, intact judgment & insight, memory intact, cooperative - Neurologic Neurologic: CNII-XII intact, no focal deficits, moves all extremities HEART Score - HEART Score History: Moderately suspicious EKG: Non-specific Age: 45-65 Risk factors: > 3 risk factors or hx of atherosclerotic disease Troponin: Troponin T < 0.010 ng/mL (0.00-0.029) 01/26/21 21:42 Troponin: < normal limit HEART Score: 5 - Critical Actions Critical Actions: 4-6 pts:12-16.6% risk of adverse cardiac event. Should be admitted Results - Labs CBC & Chem 7: 01/26/21 23:52 01/26/21 23:52 Labs: Abnormal lab results 01/26/21 01/26/21 Range/Units 21:42 21:42 MCH 33 H (28-32) pg RDW 12.6 L (13.2-15.2) % Carbon Dioxide 32 H (22-30) mmol/L Creatinine 0.5 L (0.6-1.2) mg/dL Glucose 210 H (65-100) mg/dL Assessment and Plan - Patient Problems (1) Acute chest pain Current Visit: Yes Status: Acute Plan to address problem: Patient admitted and placed on telemetry. We will check serial cardiac enzymes. Patient will be scheduled for stress test and echocardiogram. We will await cardiology evaluation. (2) Diabetes Current Visit: No Status: Acute Plan to address problem: We will monitor Accu-Cheks closely. (3) Morbid obesity Current Visit: No Status: Acute Plan to address problem: Dietary consult placed. Lifestyle modification encouraged. (4) Hyperlipidemia Current Visit: No Status: Chronic Qualifiers: Hyperlipidemia type: unspecified Qualified Code(s): E78.5 - Hyperlipidemia, unspecified Plan to address problem: We will continue routine home medications and monitor lipid profile. (5) DVT prophylaxis Current Visit: No Status: Acute Plan to address problem: Patient placed on subcutaneous Lovenox. (6) Full code status Current Visit: Yes Status: Acute Plan to address problem: Patient is a full code.
[2021-01-27 00:05] LABS: Basophils # (Auto) 0.1 K/mm3 (0.0-0.1); Basophils % (Auto) 0.7 % (0.0-1.8); Eosinophils # (Auto) 0.2 K/mm3 (0.0-0.4); Eosinophils % (Auto) 2.2 % (0.0-4.3); Hematocrit 37.4 % (30.3-42.9); Hemoglobin 12.5 gm/dl (10.1-14.3); Lymphocytes # (Auto) 2.9 K/mm3 (1.2-5.4); Lymphocytes % (Auto) 33.1 % (13.4-35.0); Mean Corpuscular HGB Conc 34 % (30-34); Mean Corpuscular Volume 97 fl (79-97); Monocytes # (Auto) 0.5 K/mm3 (0.0-0.8); Platelet Count 346 K/mm3 (140-440); Red Blood Count 3.85 M/mm3 (3.65-5.03); Red Cell Distribution Width 12.9 % (13.2-15.2)
[2021-01-27 00:25] LABS: Blood Urea Nitrogen 13 mg/dL (7-17); Calcium 9.1 mg/dL (8.4-10.2); Hemolysis Index 0
[2021-01-27 00:26] LABS: BUN/Creatinine Ratio 26
[2021-01-27 00:40] LABS: Chol/HDL Ratio 3.72 %
[2021-01-27 05:11] LABS: Basophils # (Auto) 0.1 K/mm3 (0.0-0.1); Eosinophils # (Auto) 0.2 K/mm3 (0.0-0.4); Eosinophils % (Auto) 2.7 % (0.0-4.3); Hematocrit 36.4 % (30.3-42.9); Hemoglobin 12.1 gm/dl (10.1-14.3); Lymphocytes # (Auto) 2.7 K/mm3 (1.2-5.4); Lymphocytes % (Auto) 36.9 % (13.4-35.0); Mean Corpuscular HGB Conc 33 % (30-34); Mean Corpuscular Volume 98 fl (79-97); Monocytes # (Auto) 0.5 K/mm3 (0.0-0.8); Monocytes % (Auto) 6.4 % (0.0-7.3); Platelet Count 308 K/mm3 (140-440); Red Blood Count 3.74 M/mm3 (3.65-5.03); Red Cell Distribution Width 12.6 % (13.2-15.2)
[2021-01-27 05:20] LABS: INR 1.01 (0.87-1.13)
[2021-01-27 05:46] LABS: Blood Urea Nitrogen 13 mg/dL (7-17); Calcium 8.8 mg/dL (8.4-10.2); Hemolysis Index 7
[2021-01-27 05:47] LABS: BUN/Creatinine Ratio 26
--- NOTE | 2021-01-27 08:22 | Discharge Summary ---
Providers - Providers Date of Admission: 01/26/21 22:32 Date of discharge: 01/27/21 Attending physician: KENIA SILVA 01/26/21 Consult to Cardiac Rehabilitation [CONS] Routine Reason For Exam: Phase I 01/26/21 22:45 Consult to Cardiology [CONS] Routine Consulting Provider: YOLETTE ZHU Reason For Exam: chest pain 01/26/21 22:46 Consult to Dietitian/Nutrition [CONS] Routine Physician Instructions: Reason For Exam: Reason for Consult: Diet education Primary care physician: MANAGER CHINESE Hospitalization Reason for admission: cp Condition: Stable Hospital course: 55-year-old female with known history of COPD, congestive heart failure, hypertension, and diabetes mellitus presented to the emergency room yesterday complaining of left-sided chest pain. Pain was said to have started less than 24 hours prior to admission and was noted to be intermittent with sharp pains and at times a dull ache on the left side of her chest. She has had actually associated shortness of breath. No relieving or exacerbating factor. No diaphoresis. The patient was admitted with diagnosis of chest pain. Chest x- ray was found to be negative for any acute process. Troponin was also found to be negative. EKG does not show any ischemic changes. The patient will undergo Lexiscan stress test today and if found to be negative will discharge home. Etiology chest pain likely GERD if stress test negative. Dedicated discharge time 35 minutes. Disposition: - TO HOME OR SELFCARE Final Discharge Diagnosis (Prints w/discharge instructions): GERD, chest pain Core Measure Documentation - Palliative Care Palliative Care/ Comfort Measures: Not Applicable - Core Measures Any of the following diagnoses?: none Exam - Constitutional Vitals: Temp Pulse Resp BP Pulse Ox 97.9 F 72 18 147/79 93 01/27/21 05:48 01/27/21 05:48 01/27/21 05:48 01/27/21 05:48 01/27/21 05:48 General appearance: Present: no acute distress, well-nourished - EENT Eyes: Present: PERRL ENT: hearing intact, clear oral mucosa - Neck Neck: Present: supple, normal ROM - Respiratory Respiratory effort: normal Respiratory: bilateral: CTA - Cardiovascular Heart Sounds: Present: S1 & S2. Absent: rub, click - Extremities Extremities: pulses symmetrical, No edema Peripheral Pulses: within normal limits - Abdominal General gastrointestinal: Present: soft, non-tender, non-distended, normal bowel sounds Female genitourinary: Present: normal - Integumentary Integumentary: Present: clear, warm, dry - Musculoskeletal Musculoskeletal: gait normal, strength equal bilaterally - Psychiatric Psychiatric: appropriate mood/affect, intact judgment & insight - Neurologic Neurologic: CNII-XII intact, moves all extremities Plan Activity: advance as tolerated Weight Bearing Status: Weight Bear as Tolerated Diet: diabetic Follow up with: PRIMARY CARE, [Primary Care Provider] - 3-5 Days Prescriptions: Pantoprazole [Protonix TAB] 40 mg PO QDAY #30 tablet
[2021-01-27] MEDS: INSULIN LISPRO 100 UNIT/ML SUB-Q SCH ×3 (08:25→12:42)
[2021-01-27] MEDS ORDERED: REGADENOSON 0.4 MG/5 ML INJ IV ONE ×2 (09:14→09:21)
[2021-01-27] MEDS ORDERED: ASPIRIN EC 325 MG TAB PO SCH (10:00)
[2021-01-27 12:47] VITALS: BP 158/76
[2021-01-27] MEDS ORDERED: ENOXAPARIN 40 MG/0.4 ML INJ SUB-Q SCH (22:00)
--- NOTE | 2021-01-28 10:08 | Nuclear Medicine Report ---
APPROVED REPORT Exam: Nuclear Stress Test Indication: Chest pain Ht: 5 ft 3 in Wt: 275 lbs BSA: 2.21 m2 HR: 75 bpmBP: 155/83 mmHgBMI: 48.70 Rhythm: SINUS RHYTHM Stress Test Details Stress Test: Pharmacologic stress testing performed using 0.4 mg of regadenoson per 5 mL given IV over 10 seconds. Reason for pharmacologic stress test: physical limitation. HR Resting HR: 75 bpm Max HR Achieved: 100 bpm Max Heart Rate (APMHR): 163 bpm Target HR (85% APMHR): 138 bpm % of APMHR: 61 BP Resting BP: 155/83 mmHg Max BP: 155/83 mmHg Recovery BP: 140/83 mmHg ECG Resting ECG: SINUS RHYTHM Stress ECG: Sinus Rhythm ST Change: None Arrhythmia: None Recovery ECG: Sinus Rhythm Recovery ST Change: None Recovery Arrhythmia: None Clinical Reason for Termination: Completed protocol Stress Symptoms: None Stress ECG Conclusion No chest pain and no ST changes with pharmacologic stress testing, myocardial perfusion images are pending for final test interpretation. NM EXAM: Myocardial Perfusion REST/STRESS Resting Data Rest SPECT myocardial perfusion imaging was performed in supine position 45 minutes following the intravenous injection of 10 mCi of Tc-99m Myoview. Time of rest injection: 0700 Pharmacologic Stress Time of stress injection: 0900 Gated Stress SPECT was performed 30 minutes after stress injection. Study Data TID = 1.01. Perfusion Nuclear Conclusion ECG Findings: negative for ischemia Clinical Findings: negative for ischemia Nuclear Findings: negative for ischemia Left Ventricular Function: normal Risk Study: low Normal rest and stress perfusion images, normal left ventricular systolic function, ejection fraction calculated at 67%. Normal study. Conclusion No chest pain and no ST changes with pharmacologic stress testing, myocardial perfusion images are pending for final test interpretation.
--- NOTE | 2021-01-28 17:50 | Electrocardiograph Report ---
[facility] Test Date: 2021-01-26 Test Time: 17:10:37 Pat Name: ALE CLINE Department: Room: A476 1 Gender: F Medication Coordinator: IAIN : 1965 Requested By: POLA ARIAS Order Number: [id number] Reading MD: Marcia Gama Measurements Intervals [place] Rate: 79 P: 54 MN: 162 QRS: 18 QRSD: 70 T: 107 QT: 355 QTc: 407 Interpretive Statements Sinus rhythm Probable left atrial enlargement Low voltage, precordial leads Nonspecific T abnormalities, lateral leads No previous ECG available for comparison Electronically Signed On 01-28-2021 17:49:48 EDT by Marcia Gama
--- NOTE | 2021-01-28 17:53 | Electrocardiograph Report ---
[facility] Test Date: 2021-01-27 Test Time: 07:34:05 Pat Name: ALE CLINE Department: Room: A476 1 Gender: F [employer] Attorney: AFIA : 1965 Requested By: RAYNE MCDONNELL Order Number: [id number] Reading MD: Marcia Gama Measurements Intervals [place] Rate: 82 P: 68 NC: 166 QRS: 23 QRSD: 79 T: 119 QT: 372 QTc: 435 Interpretive Statements Sinus rhythm Low voltage, precordial leads Nonspecific T abnormalities, lateral leads No previous ECG available for comparison Electronically Signed On 01-28-2021 17:53:18 EDT by Marcia Gama
--- NOTE | 2021-01-28 17:59 | Electrocardiograph Report ---
[facility] Test Date: 2021-01-27 Test Time: 14:05:21 Pat Name: ALE CLINE Department: Room: A476 1 Gender: F Supersonic Engineer: MARCELLUS : 1965 Requested By: RAYNE MCDONNELL Order Number: [id number] Reading MD: Marcia Gama Measurements Intervals [place] Rate: 95 P: 63 VT: 165 QRS: 30 QRSD: 77 T: 105 QT: 338 QTc: 424 Interpretive Statements Sinus rhythm Low voltage, precordial leads Compared to ECG 01/27/2021 07:34:05 T-wave abnormality no longer present Electronically Signed On 01-28-2021 17:59:33 EDT by Marcia Gama
== END 2021-01-27 18:50 | disposition home or self-care (01) ==
LOC: ED 16:47 → 4A 22:32
PROVIDERS: ADMIT Internal Medicine Geriatric Medicine; ATTEND Hospitalist
DX: R07.89 Other chest pain (principal); E11.9 Type 2 diabetes mellitus without complications; I11.0 Hypertensive heart disease with heart failure; I50.9 Heart failure, unspecified; J44.9 Chronic obstructive pulmonary disease, unspecified; E66.01 Morbid (severe) obesity due to excess calories; E78.5 Hyperlipidemia, unspecified; F41.9 Anxiety disorder, unspecified; G47.30 Sleep apnea, unspecified; M62.81 Muscle weakness (generalized); Z86.73 Personal history of transient ischemic attack (TIA), and cerebral infarction without residual deficits; Z90.49 Acquired absence of other specified parts of digestive tract; Z98.891 History of uterine scar from previous surgery; Z87.891 Personal history of nicotine dependence; Z79.4 Long term (current) use of insulin; Z79.82 Long term (current) use of aspirin; Z68.31 Body mass index [BMI] 31.0-31.9, adult
CPT/HCPCS: 36415; 71045; 78452; 80048; 80061; 80076; 82962; 83880; 84484; 85025; 85610; 85730; 93005; 93017; 93306; 99285; A9502; G0378; J2785; J1815